=== PATIENT | female | born 1950 | race Caucasian/White ===

== ENCOUNTER 2022-10-05 16:21 | Inpatient (IN) | payer MEDICARE, OTHER, SELFPAY ==
[2022-10-05] VITALS (7 sets, daily range): BP systolic 102–134; BP diastolic 62–76; PULSE 79–140; RESP 14–22; TEMP 36.6–37; O2SAT 94–98; BMI 21.2; BMI 20.7
--- NOTE | 2022-10-05 16:59 | ED.VIS.CHEST ---
HPI History of Present Illness Chief Complaint: Chest Pain Informant: patient and family Narrative Narrative: Patient presents with chest pain that went a little bit down her left arm. She has trouble describing the exact nature of it. It was in the front of the chest. It is there minimally off and on now. She is not short of breath. She has not had this before. She has no history of pulmonary disease or cardiac disease. No recent travel surgery or immobilization. No history of DVT or PE. No primary relative history of heart disease. Patient is on no medications. Her only past medical history is breast cancer that is considered totally cured from the early . She has not no history of heart rhythm abnormalities. She did have COVID back in the summer but had no rhythm issues that she knows of with that. She feels more the chest pain does not so much feel an increased heart rate. She does not know when her heart rate increased. [facility] Medical History HX: breast cancer Hypoglycemia Allergy/AdvReac Type Severity Reaction Status Date / Time acetaminophen Allergy Other Verified 10/05/22 16:31 [From Darvocet-N] propoxyphene Allergy Other Verified 10/05/22 16:31 [From Darvocet-N] codeine AdvReac Nausea Verified 10/05/22 16:31 Surgical History History of mastectomy Hx of total mastectomy of left breast Social History Smoking Status: Former smoker ROS ROS ED Constitutional Constitutional ED: Denies fever(s) or subjective Eyes Eyes: Denies blurry vision ENT ENT ED: Denies rhinorrhea Cardiovascular Cardiovascular: Reports chest pain; Denies palpitations or racing heartbeat Respiratory/Chest Respiratory/Chest: Denies cough or dyspnea Gastrointestinal Gastrointestinal: Denies nausea or vomiting Musculoskeletal Musculoskeletal: Denies back pain or neck pain Integumentary Denies rash Neurologic Neurologic: Denies headache(s) Endocrine Endocrinology: Denies polydipsia or polyuria Hematologic/Lymphatic Hematologic/Lymphatic: Denies lymphadenopathy Allergic/Immunologic Allergic/Immunologic ED: Denies urticaria EXAM Physical Exam Narrative Exam Narrative: Patient awake alert sitting comfortably in bed. She is in no acute distress. She carries on normal conversation. HEENT: Mucous membranes are moist. No sign of trauma. Eyes: No proptosis. No icterus. Neck shows no JVD. Thyroid does not seem enlarged Lungs are clear bilaterally. No pain with a deep breath. Heart is irregular appears to be in flutter or fibrillation. Heart rate varies anywhere from 115-155. Abdomen is soft nontender shows no CVA or suprapubic tenderness Extremities show no edema cords tenderness or asymmetry Neurologic patient awake alert appropriate Skin shows no diaphoresis pallor or rash. Const Vital Signs: 10/05/22 16:25 10/05/22 16:32 10/05/22 17:15 Temperature 98 F Temperature Source Temporal Pulse Rate 140 H Respiratory Rate 20 H Respiratory Effort Normal Non-Labored Blood Pressure 102/72 Blood Pressure Mean 82 Pulse Ox 97 Oxygen Delivery Method Room Air Room Air 10/05/22 18:54 10/05/22 19:03 Temperature Temperature Source Pulse Rate 79 83 Respiratory Rate 14 Respiratory Effort Blood Pressure 115/74 Blood Pressure Mean 87 Pulse Ox 98 Oxygen Delivery Method MDM MDM MDM Narrative Medical decision making narrative: Patient was in fib/flutter when I saw her. When the nurse went in to place the IV and we were going to give diltiazem, the patient had flipped into a normal sinus rhythm in the 80s. Symptoms are resolved. We will continue to work-up and evaluation as the patient did have chest pain with this. Patient has remained in normal sinus rhythm in the mid 80s. She has remained pain-free since her heart rate went down. She is asymptomatic now. Her blood work shows a white count of 3.4. Electrolytes show no marked abnormalities. Glucose is up a bit at 188. Troponin initially was negative and her TSH is normal. I do not have any old labs to compare. I did repeat her troponin because her timing of symptom onset. Her troponin went up to 273. Patient's rechecked. She is still asymptomatic and in normal sinus rhythm. However, she had chest pain radiating down the arm with tachycardic rate and positive troponin. She will be admitted. I discussed the case including the results as above with the hospitalist. My independent interpretation of the patient's single view chest x-ray does show a little small left-sided effusion. Lab Data Attestation: I reviewed the patient's lab results. Labs: Laboratory Results - last 24 hr 10/05/22 10/05/22 10/05/22 17:00 17:00 19:15 WBC 3.4 L RBC 4.26 Hgb 12.7 Hct 40.8 MCV 95.8 MCH 29.8 MCHC 31.1 L RDW Std Deviation 45.8 H RDW Coeff of Madhu 13.0 Plt Count 188 MPV 11.1 Immature Gran % (Auto) 0.300 Neut % (Auto) 56.5 Lymph % (Auto) 30.2 Mcdonald % (Auto) 11.2 H Eos % (Auto) 0.6 Baso % (Auto) 1.2 H Absolute Neuts (auto) 1.9 L Absolute Lymphs (auto) 1.02 Nucleated RBC % 0 Sodium 142 Potassium 3.8 Chloride 107 Carbon Dioxide 26.0 Anion Gap 9 BUN 19 H Creatinine 0.96 Estim Creat Clear Calc 38.05 Est GFR (MDRD) Af Amer 73 Est GFR (MDRD) Non-Af 61 BUN/Creatinine Ratio 19.8 Glucose 188 H Calcium 8.9 Magnesium 1.9 Troponin I High Sens 15 273 H* TSH 1.89 Radiography Diagnostic Testing: Clinical Impression(s) from Imaging Studies Chest X-Ray 10/05/22 17:22 IMPRESSION: Mild left pleural effusion with atelectasis. A focal left basilar infiltrate cannot be excluded. Electronically Signed: Danie Urrutia DO at 17:59 EST Reading Location ID and State: [facility] / [place] Tel [phone], Service support , EKG Initial EKG: Comments: My independent interpretation of EKG for tachycardia shows tachycardic rate at 130 with what appears to be flutter with variable block in the background. This could be atrial fibrillation also. No acute ST elevation or depression. QRS duration is normal. QTc is long but it is difficult to assess due to its pattern. Discharge Plan Triage Chief Complaint: Chest Pain Other Complaint: Palpitations ED Provider: Lucas Tolbert Dx/Rx/DC Orders Clinical Impression: Non-ST elevation [place] (NSTEMI), Atrial fibrillation with RVR, Hyperglycemia Primary Care Provider: Emiliano Ureña Referrals: Emiliano Ureña MD [Primary Care Provider] - Disposition Disposition: Acute Care [facility]
[2022-10-05] MEDS: Aspirin 81 MG TAB.CHEW 324 MG PO (17:05)
[2022-10-05] MEDS: 0.9% Normal Saline 1,000 ML 1000 ML IV (17:06)
[2022-10-05 17:11] LABS: Absolute Lymphocyte Count 1.02 X10^3/uL (0.83-4.51); Absolute Neutrophil Count 1.9 X10^3/uL (2.0-7.7); Basophil# 0.04 X10^3/uL; Basophil% 1.2 % (0-1); Eosinophil# 0.02 X10^3/uL; Eosinophils% 0.6 % (0-5); Hematocrit 40.8 % (37-47); Hemoglobin 12.7 g/dL (12.0-15.0); Lymphocyte # 1.02 X10^3/ul (0.83-4.51); Lymphocyte % 30.2 % (19-41); Mean Corp Hgb Conc 31.1 g/dL (32-36); Mean Corpuscular Hgb 29.8 pg (27.0-32.0); Mean Corpuscular Volume 95.8 fL (81-99); Mean Platelet Vol. 11.1 fl (6.2-12.0); Monocyte# 0.38 X10^3/uL; Monocyte% 11.2 % (0-10); NRBC Flagged by Analyzer 0 % (0-5); Neutrophil # 1.91 X10^3/uL (2.7-7.7); Neutrophil % 56.5 % (47-70); Platelet Count 188 K/mm3 (150-450); RBC Distribution Width SD 45.8 fl (35.1-43.9); Red Blood Count 4.26 M/mm3 (4.2-5.4); White Blood Count 3.4 K/mm3 (4.4-11.0)
--- NOTE | 2022-10-05 17:22 | RAD_ITS ---
INDICATION: chest pain EXAMINATION/TECHNIQUE: X-RAY - XR Chest 1 View COMPARISON: None. FINDINGS: LINES/DEVICES: None. LUNGS: Mild left pleural effusion with atelectasis. A focal left basilar infiltrate cannot be excluded. No pneumothorax. MEDIASTINUM AND CARDIOVASCULAR STRUCTURES: Cardiac silhouette not enlarged. Central airways and mediastinal contour are unremarkable. BONES AND SOFT TISSUES: Degenerative vertebral changes and scoliosis. RAD/Chest 1 View (Portable) IMPRESSION: Mild left pleural effusion with atelectasis. A focal left basilar infiltrate cannot be excluded. Electronically Signed: Danie Urrutia DO at 17:59 EST ,
[2022-10-05 17:35] LABS: Anion Gap 9 (5-15); BUN 19 mg/dL (7-18); BUN/Creat Ratio 19.8 RATIO (10-20); Calcium,Total 8.9 mg/dL (8.5-10.1); Chloride 107 mmol/L (98-107); Creatinine, Serum 0.96 mg/dL (0.55-1.02); EST Glomerular Filtration Rate 61 mL/min (>60); Est Glom Filt Rate - Afr Amer 73 mL/min (>60); Estimated Creatinine Clearance 38.05 ml/min; Glucose 188 mg/dL (74-106); Magnesium 1.9 mg/dL (1.6-2.6); Potassium 3.8 mmol/L (3.5-5.1); Sodium Level 142 mmol/L (136-145); Thyroid Stim Hormone (TSH) 1.89 uIU/mL (0.358-3.74); Troponin-I HS (w/2H Reflex) 15 pg/mL (3.0-54.0)
[2022-10-05 19:07] LABS: Reflex Troponin-HS? (from REC) Y
[2022-10-05 19:42] LABS: Troponin-I HS 273 pg/mL (3.0-54.0)
--- NOTE | 2022-10-05 20:57 | PCM.HP.STD ---
HPI - General General Date of Admission: 10/05/22 Date of Service: 10/05/22 Chief Complaint: Chest pain HPI Narrative RACHEAL GONZALEZ, is a 72-year-old female with remote history of breast cancer in the who presented to [facility] 08/04 with chest pain that started suddenly at 320 this afternoon and was left-sided and went down her arm and was present until 1 hour ago. In the ED she was found to be in A-fib with RVR with highest heart rate of 157 which was confirmed by EKG there were no marked ST changes. She had been cold and she felt getting warm help the chest pain slightly but it did not start to kalin until heart converted spontaneously to normal sinus rhythm, she had diltiazem ordered but this was never given as she converted spontaneously. Given the chest pain and the RVR hospitalist consulted for admission, initial troponin was 15 and went up to 273, presently asymptomatic. Patient evaluated in ED and presently denies chest pain or shortness of breath, no palpitations that she had noted and no swelling. Has felt some slight chest congestion and notes she had visited her father in the [place] and he was also congested. Denied other complaints at this time. PENDING SALE TO [facility] Medical History HX: breast cancer Hypoglycemia Allergy/AdvReac Type Severity Reaction Status Date / Time acetaminophen Allergy Other Verified 10/05/22 16:31 [From Darvocet-N] propoxyphene Allergy Other Verified 10/05/22 16:31 [From Darvocet-N] codeine AdvReac Nausea Verified 10/05/22 16:31 Surgical History History of mastectomy Hx of total mastectomy of left breast Social History Smoking Status: Former smoker ROS ROS Narrative General: Denies fever or chills, denies weight change HENT: Denies headache, denies stuffy nose, denies sore throat EYES: Denies changes in vision Resp: Denies cough, denies shortness of breath, does feel she has some slight chest congestion Cardiac: Denies chest pain at this time but did have some left-sided pain that radiated to her left arm GI: Denies abdominal pain, denies changes in bowel, denies nausea, denies vomiting : Denies changes in urination Extremity: Denies swelling MSK: Denies weakness Neuro: Denies any numbness, denies tingling Heme: Denies any bleeding or bruising Skin: Denies rashes Psychiatric: No complaints voiced Vital Signs Vital Signs Vital Signs: 10/05/22 16:25 10/05/22 16:32 10/05/22 17:15 Temperature 98 F Temperature Source Temporal Pulse Rate 140 H Respiratory Rate 20 H Respiratory Effort Normal Non-Labored Blood Pressure 102/72 Blood Pressure Mean 82 Pulse Ox 97 Oxygen Delivery Method Room Air Room Air 10/05/22 18:54 10/05/22 19:03 Temperature Temperature Source Pulse Rate 79 83 Respiratory Rate 14 Respiratory Effort Blood Pressure 115/74 Blood Pressure Mean 87 Pulse Ox 98 Oxygen Delivery Method Weight Weight: 49.2 kg Body Mass Index (BMI) 21.2 Physical Exam Narrative General: Alert, oriented, no apparent distress HEENT: Atraumatic, normocephalic Eyes: Anicteric, normal conjunctiva, extraocular movements grossly intact Neck: Supple Respiratory: Clear to auscultation bilaterally, normal respiratory effort Cardiovascular: Regular rate and rhythm GI: Soft, nontender, nondistended Extremities: No edema Musculoskeletal: Moving all extremities Neuro: No overt focal neurological deficits Skin: No rashes appreciated Psych: Cooperative Results Lab / Micro Data Result Diagrams: 10/05/22 17:00 10/05/22 17:00 Labs: Laboratory Results - last 24 hr 10/05/22 17:00: WBC 3.4 L, RBC 4.26, Hgb 12.7, Hct 40.8, MCV 95.8, MCH 29.8, MCHC 31.1 L, RDW Std Deviation 45.8 H, RDW Coeff of Madhu 13.0, Plt Count 188, MPV 11.1, Immature Gran % (Auto) 0.300, Neut % (Auto) 56.5, Lymph % (Auto) 30.2, Thayer % (Auto) 11.2 H, Eos % (Auto) 0.6, Baso % (Auto) 1.2 H, Absolute Neuts (auto) 1.9 L, Absolute Lymphs (auto) 1.02, Nucleated RBC % 0 10/05/22 17:00: Sodium 142, Potassium 3.8, Chloride 107, Carbon Dioxide 26.0, Anion Gap 9, BUN 19 H, Creatinine 0.96, Estim Creat Clear Calc 38.05, Est GFR (MDRD) Af Amer 73, Est GFR (MDRD) Non-Af 61, BUN/Creatinine Ratio 19.8, Glucose 188 H, Calcium 8.9, Magnesium 1.9, Troponin I High Sens 15, TSH 1.89 10/05/22 19:15: Troponin I High Sens 273 H* Radiology Impression Chest X-Ray 10/05/22 17:22 IMPRESSION: Mild left pleural effusion with atelectasis. A focal left basilar infiltrate cannot be excluded. Electronically Signed: Danie Urrutia, DO at 17:59 EST Reading Location ID and State: [facility] / [place] Tel [phone], Service support , Assessment & Plan Assessment/Plan (1) Atrial fibrillation with RVR: (2) Non-ST elevation [place] (NSTEMI): PLAN: Plan #New onset atrial fibrillation with RVR Confirmed on ekg, unclear etiology Has minimal past medical history RVR resolved spontaneously and did not require medication We will obtain echocardiogram TSH within normal limits Given gentle hydration We will obtain COVID given congestion and A-fib [id number] of 2, will start Lovenox and if no further chest pain, troponins stabilize and no need for intervention can transition to oral Low dose beta-tee started We will reorder EKG now that heart rate is in 80s to assess for any other abnormalities #NSTEMI Likely type II Troponin initially 15 and went up to 273, suspect this was type II EKG on arrival demonstrated A-fib with RVR without marked ST changes Has no further chest pain and RVR has resolved Was loaded with aspirin Will obtain a.m. lipid panel and continue aspirin and will start statin Repeat EKG now that RVR resolved Has been given Lovenox per #1, low suspicion for type I event but if further chest pain or symptoms may need further inpatient evaluation, if stable overnight can likely have further work-up as an outpatient Echo ordered #Atypical chest pain- resolved Did have some left-sided chest pain that radiated to her arm that seem to coincide with the A-fib with RVR On chest x-ray does have a effusion on that side but we have no comparison COVID and flu ordered, chest x-ray queried infiltrate but she has no shortness of breath, cough, lab abnormalities suggestive of underlying pneumonia at this time and will not start empiric antibiotics Echo ordered We will obtain a.m. x-ray as well #DVT ppx: Full dose Lovenox as above and SCDs Chuyita Guaman MD Time spent in the patient's overall evaluation,decision-making process, review of diagnostic data, adjustment of management, discussion with other providers, nursing nursing and ancillary staff involved in patient's care documentation, 55 minutes Charges/Coding Visit Charges Inpatient E&M: 74210 Init Hosp L2
--- NOTE | 2022-10-05 21:34 | ED.RN ---
Pt rhythm converted spontaneously, no need for Cardizem bolus. MD aware.
--- NOTE | 2022-10-05 22:14 | ECHOD_ITS ---
Reason For Study: Afib/Flutter Procedure This was a 2D Doppler, Color Flow transthoracic echocardiogram. The study was technically difficult. Exam performed portable in patient room. Left Ventricle Normal size and thickness. The left ventricular ejection fraction is 45 %. Severe inferior and posterior hypokinesis. Right Ventricle Normal right ventricle. Atria The left atrium is mildly enlarged. Normal right atrium. Mitral Valve Mild (1+) mitral valve insufficiency. Tricuspid Valve Mild tricuspid valve insufficiency. Normal pulmonary artery pressure. Aortic Valve The aortic valve is not well visualized in the short axis view. There is no aortic stenosis. No aortic valve insufficiency. Pulmonic Valve The pulmonic valve is not well visualized. Trivial pulmonic valve insufficiency. Great Vessels Normal sized aortic root. Pericardium/Pleural No pericardial effusion. Large left pleural effusion. MMode/2D Measurements & Calculations LVIDd: 4.8 cm IVSd: 0.69 cm LA dimension: 3.5 cm LVIDs: 3.5 cm LVPWd: 0.71 cm RVDd: 2.7 cm FS: 26.5 % LAV(MOD-bp): 38.0 ml LA A4 area: 15.5 cm2 RA A4 area: 9.6 cm2 LAV(MOD-bp) Indexed: 26.7 ml/m2 LAV(MOD-sp2): 36.4 ml LAV(MOD-sp4): 38.9 ml Time Measurements MV dec time: 0.13 sec Doppler Measurements & Calculations MV E max jimmie: 84.8 cm/sec Lat Peak E' Jimmie: 9.3 cm/sec Med Peak E' Jimmie: 6.2 cm/sec MV A max jimmie: 58.0 cm/sec E/E' lat: 9.1 E/E' med: 13.7 MV E/A: 1.5 MV V2 max: 108.1 cm/sec MV P1/2t max jimmie: 108.1 cm/sec Ao V2 max: 136.4 cm/sec MV max P.7 mmHg MV P1/2t: 50.0 msec Ao max P.5 mmHg MV V2 mean: 60.8 cm/sec MV dec slope: 633.3 cm/sec2 MV mean P.7 mmHg MVA(P1/2t): 4.4 cm2 MV V2 VTI: 21.7 cm LV V1 max: 80.9 cm/sec MR max jimmie: 469.3 cm/sec PA V2 max: 84.9 cm/sec LV V1 max P.6 mmHg MR max P.1 mmHg LV V1 mean P.5 mmHg MR mean jimmie: 359.6 cm/sec LV V1 mean: 58.2 cm/sec MR mean P.1 mmHg LV V1 VTI: 16.3 cm MR VTI: 154.8 cm TR max jimmie: 245.5 cm/sec TR max P.1 mmHg ECHO/Echo Complete Interpretation Summary The left ventricular ejection fraction is 45 %. Severe inferior and posterior hypokinesis. The left atrium is mildly enlarged. Mild (1+) mitral valve insufficiency. Mild tricuspid valve insufficiency. Large left pleural effusion. Ordering Physician: Chuytia Guaman Performed By: Quintin Price RCS
[2022-10-05] MEDS: Enoxaparin 60 MG/0.6 ML Syringe 50 MG SC (23:03)
[2022-10-05] MEDS: MELATONIN 3 MG TABLET PO (23:04)
[2022-10-05] MEDS: Atorvastatin Calcium 40 MG Tablet PO (23:04)
[2022-10-05] MEDS: Metoprolol Tartrate 25 MG Tablet 12.5 MG PO (23:04)
[2022-10-05 23:39] LABS: Troponin-I HS 5666 pg/mL (3.0-54.0)
[2022-10-06] VITALS (25 sets, daily range): BP systolic 87–134; BP diastolic 53–90; PULSE 74–144; RESP 18–28; TEMP 36.6–36.8; O2SAT 78–100
[2022-10-06] MEDS: Benzonatate 100 MG Capsule PO (01:06)
[2022-10-06 02:24] LABS: Absolute Lymphocyte Count 1.27 X10^3/uL (0.83-4.51); Absolute Neutrophil Count 2.6 X10^3/uL (2.0-7.7); Basophil# 0.04 X10^3/uL; Basophil% 0.9 % (0-1); Eosinophil# 0.03 X10^3/uL; Eosinophils% 0.7 % (0-5); Hematocrit 40.2 % (37-47); Hemoglobin 12.8 g/dL (12.0-15.0); Lymphocyte # 1.27 X10^3/ul (0.83-4.51); Lymphocyte % 28.9 % (19-41); Mean Corp Hgb Conc 31.8 g/dL (32-36); Mean Corpuscular Hgb 30.3 pg (27.0-32.0); Mean Platelet Vol. 11.1 fl (6.2-12.0); Monocyte% 9.1 % (0-10); NRBC Flagged by Analyzer 0 % (0-5); Neutrophil # 2.63 X10^3/uL (2.7-7.7); Neutrophil % 59.9 % (47-70); Platelet Count 185 K/mm3 (150-450); RBC Distribution Width CV 13.1 % (11.6-14.6); RBC Distribution Width SD 45.1 fl (35.1-43.9); Red Blood Count 4.23 M/mm3 (4.2-5.4); White Blood Count 4.4 K/mm3 (4.4-11.0)
[2022-10-06 02:43] LABS: ALB/GLOB Ratio 1.1 RATIO (0.9-2.4); AST(SGOT) 46 U/L (15-37); Alanine Aminotransfer ALT/SGPT 26 U/L (13-56); Albumin, Serum 3.1 g/dL (3.2-5.0); Alkaline Phosphatase 102 U/L (45-117); Anion Gap 9 (5-15); BUN 19 mg/dL (7-18); BUN/Creat Ratio 23.4 RATIO (10-20); Calcium,Total 8.5 mg/dL (8.5-10.1); Chloride 110 mmol/L (98-107); Cholesterol 225 mg/dL (200); Creatinine, Serum 0.81 mg/dL (0.55-1.02); EST Glomerular Filtration Rate 74 mL/min (>60); Est Glom Filt Rate - Afr Amer 89 mL/min (>60); Estimated Creatinine Clearance 45.09 ml/min; Globulin 2.8 g/dL (2.2-4.2); Glucose 99 mg/dL (74-106); High Density Lipoprotein 96 mg/dL; Potassium 3.9 mmol/L (3.5-5.1); Protein, Total 5.9 g/dL (6.4-8.2); Sodium Level 143 mmol/L (136-145); Triglycerides 48 mg/dL; Very Low Density Lipoprotein 10 mg/dL (5-40)
[2022-10-06] MEDS: Ondansetron 4 MG/2 ML Vial IV (03:32)
--- NOTE | 2022-10-06 03:32 | NURSING ---
Pts troponin is 6466 at this time. Pts primary rn aware.
[2022-10-06 03:33] LABS: Troponin-I HS 6466 pg/mL (3.0-54.0)
[2022-10-06] MEDS: 0.9% Saline Lock 10 ML Syringe IV ×4 (03:33→20:53)
--- NOTE | 2022-10-06 04:13 | CT_ITS ---
EXAM: CTA Chest and CTA Abdomen and Pelvis W/ Contrast Injection (and W/O Contrast Images if performed) HISTORY: Hypoxia, abd pain TECHNIQUE: CTA Chest and CTA Abdomen and Pelvis W/ Contrast Injection (and W/O Contrast Images if performed) 3D reconstructions were reviewed. A radiation dose optimization technique was used for this scan. COMPARISON: None. LIMITATIONS: Motion. CHEST: LUNGS: Extensive scattered bilateral groundglass opacities. Bilateral interlobular septal thickening most prominent at the lung bases. Left apical pleural/parenchymal scarring. Partial atelectasis of the left lower lobe with heterogeneous attenuation. PULMONARY VESSELS: Normal. PLEURA: Moderate left and small right pleural effusions. MEDIASTINUM: No coronary artery calcifications. ABDOMEN/PELVIS: LIVER: Normal. GALLBLADDER/BILE DUCTS: Normal. PANCREAS: Normal. SPLEEN: Normal. ADRENAL GLANDS: Normal. KIDNEYS/URETERS/BLADDER: Bilateral renal cortical scarring. No hydroureteronephrosis or radiopaque nephrolithiasis.. RETROPERITONEUM/AORTA: Normal. BOWEL/MESENTERY: No bowel dilatation. Mild to moderate wall thickening in scattered in the transverse and descending colon which is largely decompressed, limiting evaluation. Mild to moderate increased stool in the rectosigmoid colon. APPENDIX: Identified and normal. PERITONEUM: Normal. REPRODUCTIVE ORGANS: Normal. BONES/SOFT TISSUES: No acute abnormality. OTHER: None. CT/CTA Chst, Abd, Pel W and/or WO IMPRESSION: 1. No aortic aneurysm or dissection. 2. Bilateral groundglass opacities and interlobular septal thickening, consistent with pulmonary edema, cannot exclude superimposed infection. Partial atelectasis of the left lower lobe. Following clinical improvement repeat CT chest is recommended to exclude underlying lesion. 3. Moderate left and small right pleural effusions. 4. Mild to moderate wall thickening in the colon, may be due to decompression or colitis. 5. Mild to moderate increased stool in the rectosigmoid colon, correlate for fecal impaction and constipation. Electronically Signed: Juan Bautista MD at 6:03 EST ,
--- NOTE | 2022-10-06 04:18 | NURSING ---
Pt c/o abd pain, 03/30. Pt was curled in bed, moaning and guarding stomach area. Pt was also nauseous and dry heaving. Zofran was given, but ineffective. Pt became hypoxic, 78% on RA. BP was 87/77, HR 79. Pt denies chest pain at this time. OCEAN FISHING GUIDE started at 0407, pt was placed on 6L NC 90%. MD at bedside at 0410. EKG obtained, showed NSR. Pt was given some additional nausea meds. OCEAN FISHING GUIDE ends at 041. Additional orders placed by .
[2022-10-06] MEDS: proCHLORPERazine 10 MG/2 ML Vial 5 MG IV ×2 (04:19→05:45)
--- NOTE | 2022-10-06 04:30 | NURSING ---
Pt went down to CT at this time.
--- NOTE | 2022-10-06 04:35 | PN.HOSP_ITS ---
Hospitalist Note Called for rapid response at 400 due to patient having abdominal pain and distress with O2 sats dropping and soft BP. Presented to bedside and patient reported suprapubic pain that was severe, had received a dose of Zofran around 330 and then had done fair until 4 AM, denied problems with bowel movements and had urinated on arrival to the ED. EKG with no ST elevations, she was placed on nonrebreather but was unable to tolerate the mask and placed back on nasal cannula at 6 L with recovery of SPO2 to the low 90s, continue to report signific ant nausea and having dry heaves that was refractory to Zofran so dose of Compazine given which did help to some extent though she still in significant distress. Given BP fluid bolus ordered and verbal given for labs and for CT chest abdomen pelvis. Full LABOR STANDARDS DIRECTOR note to be included in physical chart. Accompanied patient to CT, still uncomfortable and having nausea though slightly better, is on 8 L of O2 at this time but frequently takes it off and will desat to low 80s. Independent review of CT of the chest shows pleural effusions, also appears to have significant stool burden and distended misshapened bladder, given location of pain as well as her nausea and symptoms suspect that her significant rectal stool burden as well as significant bladder distention are contributing. Palumbo catheter being placed at this time and will await official read and lab results, BP improved and maintaining O2 sats. Do not feel she needs escalated ICU care at this time. Given her respiratory status and effusions rest of bolus was suspended.
--- NOTE | 2022-10-06 04:50 | MDS.RN ---
Pt back from CT, on 8L high flow, 93% 02 sats, BP 134/90 HR 84. Palumbo placed at this time.
[2022-10-06 05:11] LABS: Blood Gas Specimen Type VEN; O2 Delivery Device HFNC; VBG BASE EXCESS -5 mmol/L (-1.0-3.5); VBG Bicarbonate 20 mmol/L (22-26); VBG PO2 64 mmHg (25-40); VBG SO2 93 % (50-70); VBG TCO2 21 mmol/L (23-33); VBG pCO2 30.4 mmHg (41-51); VBG pH 7.42 (7.32-7.42)
[2022-10-06 05:17] LABS: D-Dimer Quantitative (DVT/PE) 1.01 FEU/ug/m (0.27-0.49)
[2022-10-06] MEDS: Bisacodyl 10 MG Suppository RC (05:45)
[2022-10-06] MEDS: Furosemide 20 MG/2 ML VIAL IV (05:45)
[2022-10-06 05:49] LABS: Lactic Acid 1.1 mmol/L (0.4-1.9)
[2022-10-06 05:50] LABS: Troponin-I HS 5549 pg/mL (3.0-54.0)
--- NOTE | 2022-10-06 05:55 | RAD_ITS ---
INDICATION: L pleural effusion EXAMINATION/TECHNIQUE: X-RAY - XR Chest 1 View COMPARISON: 10/05/2022 FINDINGS: LINES/DEVICES: None. LUNGS: Increased perihilar hazy opacities and left basal hazy and patchy opacity. MEDIASTINUM AND CARDIOVASCULAR STRUCTURES: Cardiac silhouette not enlarged. Central airways and mediastinal contour are unremarkable. BONES AND SOFT TISSUES: Bilateral axillary surgical clips, similar compared to the prior. No acute osseous abnormality.. RAD/Chest 1 View (Portable) IMPRESSION: Increased perihilar and left basal opacities, differential includes worsening edema or infection. Electronically Signed: Juan Bautista MD at 7:41 EST ,
--- NOTE | 2022-10-06 06:36 | NURSING ---
Pt asleep, weaned to 5L NC, o2 sats at 99%. Bed alarm on for safety.
--- NOTE | 2022-10-06 07:33 | PN.HOSP_ITS ---
Reason for Visit Reason for Visit: Diagnoses Non-ST elevation (NSTEMI) myocardial infarction (10/05/22) Unspecified atrial fibrillation (10/05/22) Subjective Subjective Follow-up for A-fib RVR converted, non-STEMI, abdominal pain, constipation. 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 Objective Data Objective Data Vital Signs: Vital Signs Temp Pulse Resp BP Pulse Ox O2 Del Method O2 Flow Rate 98.3 F 77 19 H 118/63 99 Nasal Cannula 5 10/06/22 04:07 10/06/22 06:35 10/06/22 06:35 10/06/22 06:35 10/06/22 06:35 10/06/22 06:35 10/06/22 06:35 Oxygen Flow Rate (L/min) 5 Oxygen Delivery Method Nasal Cannula Weight: 106 lb 4.205 oz Body Mass Index (BMI) 20.7 Intake & Output: Intake and Output for Last 24 Hours 10/04/22 10/05/22 10/06/22 23:59 23:59 23:59 Intake Total 1000 / 1000 Output Total 350 / 350 Balance 1000 / 1000 -350 / -350 Lab / Micro Data Result Diagrams: 10/06/22 02:05 10/06/22 02:05 Labs: Laboratory Results - last 24 hr 10/05/22 17:00: WBC 3.4 L, RBC 4.26, Hgb 12.7, Hct 40.8, MCV 95.8, MCH 29.8, MCHC 31.1 L, RDW Std Deviation 45.8 H, RDW Coeff of Madhu 13.0, Plt Count 188, MPV 11.1, Immature Gran % (Auto) 0.300, Neut % (Auto) 56.5, Lymph % (Auto) 30.2, Barbour % (Auto) 11.2 H, Eos % (Auto) 0.6, Baso % (Auto) 1.2 H, Absolute Neuts (auto) 1.9 L, Absolute Lymphs (auto) 1.02, Nucleated RBC % 0 10/05/22 17:00: Sodium 142, Potassium 3.8, Chloride 107, Carbon Dioxide 26.0, Anion Gap 9, BUN 19 H, Creatinine 0.96, Estim Creat Clear Calc 38.05, Est GFR (MDRD) Af Amer 73, Est GFR (MDRD) Non-Af 61, BUN/Creatinine Ratio 19.8, Glucose 188 H, Calcium 8.9, Magnesium 1.9, Troponin I High Sens 15, TSH 1.89 10/05/22 19:15: Troponin I High Sens 273 H* 10/05/22 23:01: Troponin I High Sens 5666 H* 10/06/22 02:05: WBC 4.4, RBC 4.23, Hgb 12.8, Hct 40.2, MCV 95.0, MCH 30.3, MCHC 31.8 L, RDW Std Deviation 45.1 H, RDW Coeff of Madhu 13.1, Plt Count 185, MPV 11.1, Immature Gran % (Auto) 0.500, Neut % (Auto) 59.9, Lymph % (Auto) 28.9, Barbour % (Auto) 9.1, Eos % (Auto) 0.7, Baso % (Auto) 0.9, Absolute Neuts (auto) 2.6, Absolute Lymphs (auto) 1.27, Nucleated RBC % 0 10/06/22 02:05: Sodium 143, Potassium 3.9, Chloride 110 H, Carbon Dioxide 24.0, Anion Gap 9, BUN 19 H, Creatinine 0.81, Estim Creat Clear Calc 45.09, Est GFR (MDRD) Af Amer 89, Est GFR (MDRD) Non-Af 74, BUN/Creatinine Ratio 23.4 H, Glucose 99, Calcium 8.5, Total Bilirubin 0.30, AST 46 H, ALT 26, Alkaline Phosphatase 102, Total Protein 5.9 L, Albumin 3.1 L, Globulin 2.8, Albumin/Globulin Ratio 1.1, Triglycerides 48, Cholesterol 225 H, LDL Cholesterol 119, VLDL Cholesterol 10, HDL Cholesterol 96 10/06/22 02:15: Troponin I High Sens 6466 H* 10/06/22 04:55: Troponin I High Sens 5549 H* 10/06/22 04:55: Lactic Acid 1.1 10/06/22 04:55: D-Dimer Quant (PE/DVT) 1.01 H* Micro: Microbiology 10/05/22 22:50 Nasal Secretion SARS-CoV-2 & FLU Antigen (Rapid) - Final ABG Data ABG results: ABG 10/06/22 05:01 Specimen Type POLINA VBG pH 7.42 VBG pO2 64 H VBG HCO3 20 L VBG Total CO2 21 L VBG O2 Sat (Calc) 93 H VBG Base Excess -5 L POC Mix VBG pCO2 Pt Tmp 30.4 L O2 Delivery Device HFNC Liter Flow 8.0 Radiography Diagnostic Testing: Radiology Impression Chest X-Ray 10/05/22 17:22 IMPRESSION: Mild left pleural effusion with atelectasis. A focal left basilar infiltrate cannot be excluded. Electronically Signed: Danie Urrutia DO at 17:59 EST , Chest/Abdomen/Pelvis CTA 10/06/22 04:13 IMPRESSION: 1. No aortic aneurysm or dissection. 2. Bilateral groundglass opacities and interlobular septal thickening, consistent with pulmonary edema, cannot exclude superimposed infection. Partial atelectasis of the left lower lobe. Following clinical improvement repeat CT chest is recommended to exclude underlying lesion. 3. Moderate left and small right pleural effusions. 4. Mild to moderate wall thickening in the colon, may be due to decompression or colitis. 5. Mild to moderate increased stool in the rectosigmoid colon, correlate for fecal impaction and constipation. Electronically Signed: Juan Bautista MD at 6:03 EST , Physical Exam Narrative Seen and examined. Patient states she has chest pain midsternal/left sternal, sharp in quality with radiation to left arm and interscapular region in the back. She is not a good historian to describe detail characteristics of the pain. She denies prior history of coronary artery disease/MD or other heart disease or heart cath. Found to have new onset A-fib RVR in ED which is converted now. Denies chronic lung disease. She has history of smoking less than a pack for 25 years. Quit in 2001. She had a rapid response in the morning with low blood pressure, transient hypotension, abdominal pain. CT abdomen was done. When I saw her she is in normal baseline no chest pain or abdominal pain. She moves her bowels twice a week but denies straining defecation or blood in the stool. No nausea or vomiting. Physical exam General: Alert, Oriented x3, Cooperative HEENT: Atraumatic, PERRLA, EOMI, Normocephalic Oral: Oral mucosa moist. No Gingival or Mucosal Lesions/ Ulcerations Neck: Supple, No JVD, Negative Carotid Bruits Lungs: Air entry diminished in bilateral lung bases. No crepitation/rhonchi Cardiovascular: Sinus rhythm with PVCs, NSVT 23 beats, normal S1, Normal S2, soft systolic murmur LLSB. Abdomen: Bowel Sounds Present, Soft, Non Tender, Non-Distended : No renal angle tenderness. No suprapubic tenderness. Extremities: Subtle edema, chronic edema, Capillary Refill Less than 3 Seconds Skin: No rashes, No breakdown Musculoskeletal: No Tenderness to Palpation of Joints or Extremities. ROM intact. Neurological: Cranial nerves II-XII grossly intact, DTR 2+/4 and Symmetrical, Neuro grossly intact Psych/Mental Status: Flat affect. Assessment & Plan Assessment/Plan (1) Atrial fibrillation with RVR: (2) Non-ST elevation MD (NSTEMI): PLAN: Plan This is 72-year-old female who came to ED for chest pain with radiation to left arm, cannot describe it well. Denies shortness of breath. She was found to have A-fib with RVR. Had rapid response in the morning. 1. Atypical chest pain, Non-STEMI with new onset A-fib RVR probably precipit ated by non-STEMI, PVCs and NSVT: Twelve-lead EKG shows A-fib RVR with no distinct or marked ST-T changes. troponin very high, progressive increase in 6000. Patient had Cardizem IV bolus. Patient converted to sinus rhythm. Multiple PVCs and NSVT. Patient on baby aspirin, Lovenox 1 mg/kg body weight, metoprolol low-dose. Education Rep consult requested and discussed with Dr. Souza. 2D echo is done. TSH normal. [id number] score 2. 2. 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 Patient pulse ox was in low 90s on 6 L of oxygen. Patient is significant nausea and dry heaving. Patient had CTA chest and abdomen which shows pleural effusion, significant colonic stool with rectal distention and bladder distention. Palumbo catheter was inserted. Patient is back to baseline. Pulse ox 98% on 3 L of oxygen 3. Constipation with rectal distention: Patient takes a stool softener at home Dulcolax oral. Here Dulcolax suppository was given and enema ordered. On senna S and Dulcolax oral. Avoid beta-tee and enema at same time. Discussed with nursing staff. 4. Anxiety and history of breast cancer: Patient states she was depressed while taking care of her dad who is in skilled nursing now. Not on any home medication. 5. History of smoking of less than 25 pack years: Denies history of chronic pricila ng disease or COPD. #DVT ppx: Full dose Lovenox as above and SCDs Total time of the visit including total time spent in counseling or coordination of care, (more than 50% of the total time, spent in obtaining medical information from nurses and other ancillary care providers,explaining to the patient about labs, imaging, diagnosis and management of active complex medical conditions), discussion with equine science instructor, reviewing of days event, review of labs and imaging is 50 minutes. Charges/Coding Visit Charges Inpatient E&M: 38624 [facility] [[email or web address]] Hosp L3
[2022-10-06] MEDS: Aspirin 81 MG TAB.CHEW PO (08:54)
[2022-10-06] MEDS: Enoxaparin 60 MG/0.6 ML Syringe 50 MG SC (08:54)
[2022-10-06 09:50] LABS: Magnesium 1.8 mg/dL (1.6-2.6); Phosphorus 3.6 mg/dL (2.5-4.9)
[2022-10-06] MEDS: Metoprolol Tartrate 25 MG Tablet 12.5 MG PO (09:57)
--- NOTE | 2022-10-06 11:05 | CASEMGMT ---
RN JOSEPH Face to Face with patient for initial transition planning/care coordination assessment. RN CM introduced self and role at [facility]. Patient lying in bed, alert and oriented. Patient willing to participate in assessment and is able to answer all questions appropriately. Care providers, pharmacy, and demographics verified. Patient wishes to discharge home, denies need for home health at this time. Patient states he has no further needs or concerns at this time. CM to follow for discharge planning needs that may arise. PCP: Niranjan Specialists: none Preferred Pharmacy: [facility] Insurance: [employer] other Prescription Benefit: yes Living Will/HPOA: none LNOK: sister Living Arrangements: Patient lives alone in a single story condo with no steps to enter. Patient is independent at home. Transportation: self, sister DME/HHC: Patient denies DME in the home. No previous HHC or SNF. Disposition Plan: Patient to discharge home with family support and follow-up plans place. Zoie DAVIDSON, RN, CM
--- NOTE | 2022-10-06 11:58 | PCM.CONS.C ---
Assessment & Plan Assessment/Plan (1) Non-ST elevation SD (NSTEMI): PLAN: Discussed with patient. Coronary angiography with possible revascularization offered. Risks benefits and alternatives explained. She understands and wishes to proceed. (2) Atrial fibrillation with RVR: PLAN: In the setting of #1 above. Presently normal sinus rhythm. Will likely need anticoagulation after her cardiac catheterization/angiography. (3) Cardiomyopathy: PLAN: For coronary angiography. (4) Pleural effusion: PLAN: As per internal medicine. Consider pulmonology consult. HPI Consult Data Date of Consult: 10/06/22 HPI Narrative HPI Narrative: The patient presented to the emergency room with complaints of anterior chest discomfort radiating down her left arm. In the emergency room, she was noted to be in atrial fibrillation with rapid ventricular response. He subsequently converted to normal sinus rhythm. Troponins were noted to be elevated ruling her in for non-ST elevation myocardial infarction. Presently patient is chest pain-free. Patient denies any previous history of coronary artery disease. Denies any history of atrial fibrillation prior to this episode. No orthopnea. No PND. No ankle edema. [facility] Medical History HX: breast cancer Hypoglycemia Home Medications NK 10/05/22 [History Last Taken Unknown] Allergy/AdvReac Type Severity Reaction Status Date / Time acetaminophen Allergy Other Verified 10/05/22 16:31 [From Darvocet-N] propoxyphene Allergy Other Verified 10/05/22 16:31 [From Darvocet-N] codeine AdvReac Nausea Verified 10/05/22 16:31 Surgical History History of mastectomy Hx of total mastectomy of left breast Social History Smoking Status: Former smoker Risk Stratification Risk Stratification Applicable: No Objective Data Vital Signs: Vital Signs Temp Pulse Resp BP Pulse Ox O2 Del Method O2 Flow Rate 98.1 F 96 20 H 96/65 98 Nasal Cannula 3 10/06/22 08:44 10/06/22 09:57 10/06/22 08:44 10/06/22 09:57 10/06/22 09:50 10/06/22 09:50 10/06/22 09:50 Oxygen Flow Rate (L/min) 3 Oxygen Delivery Method Nasal Cannula Weight: 106 lb 4.205 oz Body Mass Index (BMI) 20.7 Intake & Output: Intake and Output for Last 24 Hours 10/04/22 10/05/22 10/06/22 23:59 23:59 23:59 Intake Total 1000 / 1000 500 / 500 Output Total 350 / 350 Balance 1000 / 1000 150 / 150 Lab / Micro Data Attestation: I reviewed the patient's lab results. Result Diagrams: 10/06/22 02:05 10/06/22 02:05 Labs: Laboratory Results - last 24 hr 10/05/22 17:00: WBC 3.4 L, RBC 4.26, Hgb 12.7, Hct 40.8, MCV 95.8, MCH 29.8, MCHC 31.1 L, RDW Std Deviation 45.8 H, RDW Coeff of Madhu 13.0, Plt Count 188, MPV 11.1, Immature Gran % (Auto) 0.300, Neut % (Auto) 56.5, Lymph % (Auto) 30.2, Citrus % (Auto) 11.2 H, Eos % (Auto) 0.6, Baso % (Auto) 1.2 H, Absolute Neuts (auto) 1.9 L, Absolute Lymphs (auto) 1.02, Nucleated RBC % 0 10/05/22 17:00: Sodium 142, Potassium 3.8, Chloride 107, Carbon Dioxide 26.0, Anion Gap 9, BUN 19 H, Creatinine 0.96, Estim Creat Clear Calc 38.05, Est GFR (MDRD) Af Amer 73, Est GFR (MDRD) Non-Af 61, BUN/Creatinine Ratio 19.8, Glucose 188 H, Calcium 8.9, Magnesium 1.9, Troponin I High Sens 15, TSH 1.89 10/05/22 19:15: Troponin I High Sens 273 H* 10/05/22 23:01: Troponin I High Sens 5666 H* 10/06/22 02:05: WBC 4.4, RBC 4.23, Hgb 12.8, Hct 40.2, MCV 95.0, MCH 30.3, MCHC 31.8 L, RDW Std Deviation 45.1 H, RDW Coeff of Madhu 13.1, Plt Count 185, MPV 11.1, Immature Gran % (Auto) 0.500, Neut % (Auto) 59.9, Lymph % (Auto) 28.9, Citrus % (Auto) 9.1, Eos % (Auto) 0.7, Baso % (Auto) 0.9, Absolute Neuts (auto) 2.6, Absolute Lymphs (auto) 1.27, Nucleated RBC % 0 10/06/22 02:05: Sodium 143, Potassium 3.9, Chloride 110 H, Carbon Dioxide 24.0, Anion Gap 9, BUN 19 H, Creatinine 0.81, Estim Creat Clear Calc 45.09, Est GFR (MDRD) Af Amer 89, Est GFR (MDRD) Non-Af 74, BUN/Creatinine Ratio 23.4 H, Glucose 99, Calcium 8.5, Total Bilirubin 0.30, AST 46 H, ALT 26, Alkaline Phosphatase 102, Total Protein 5.9 L, Albumin 3.1 L, Globulin 2.8, Albumin/Globulin Ratio 1.1, Triglycerides 48, Cholesterol 225 H, LDL Cholesterol 119, VLDL Cholesterol 10, HDL Cholesterol 96 10/06/22 02:15: Troponin I High Sens 6466 H* 10/06/22 04:55: Troponin I High Sens 5549 H* 10/06/22 04:55: Lactic Acid 1.1 10/06/22 04:55: D-Dimer Quant (PE/DVT) 1.01 H* 10/06/22 04:55: Phosphorus 3.6, Magnesium 1.8 Micro: Microbiology 10/05/22 22:50 Nasal Secretion SARS-CoV-2 & FLU Antigen (Rapid) - Final ABG Data ABG results: ABG 10/06/22 05:01 Specimen Type POLINA VBG pH 7.42 VBG pO2 64 H VBG HCO3 20 L VBG Total CO2 21 L VBG O2 Sat (Calc) 93 H VBG Base Excess -5 L POC Mix VBG pCO2 Pt Tmp 30.4 L O2 Delivery Device HFNC Liter Flow 8.0 Rhythm Strip Rhythm Strip: Sinus Rhythm Cardiology Labs/Tests 10/05/22 17:00: WBC 3.4 L, RBC 4.26, Hgb 12.7, Hct 40.8, MCV 95.8, MCH 29.8, MCHC 31.1 L, Plt Count 188, MPV 11.1, Immature Gran % (Auto) 0.300, Neut % (Auto) 56.5, Lymph % (Auto) 30.2, Citrus % (Auto) 11.2 H, Eos % (Auto) 0.6, Baso % (Auto) 1.2 H, Absolute Neuts (auto) 1.9 L, Nucleated RBC % 0 10/05/22 17:00: Sodium 142, Potassium 3.8, Chloride 107, Carbon Dioxide 26.0, Anion Gap 9, BUN 19 H, Creatinine 0.96, Est GFR (MDRD) Af Amer 73, Est GFR (MDRD) Non-Af 61, BUN/Creatinine Ratio 19.8, Glucose 188 H, Calcium 8.9, Magnesium 1.9 10/06/22 02:05: WBC 4.4, RBC 4.23, Hgb 12.8, Hct 40.2, MCV 95.0, MCH 30.3, MCHC 31.8 L, Plt Count 185, MPV 11.1, Immature Gran % (Auto) 0.500, Neut % (Auto) 59.9, Lymph % (Auto) 28.9, Citrus % (Auto) 9.1, Eos % (Auto) 0.7, Baso % (Auto) 0.9, Absolute Neuts (auto) 2.6, Nucleated RBC % 0 10/06/22 02:05: Sodium 143, Potassium 3.9, Chloride 110 H, Carbon Dioxide 24.0, Anion Gap 9, BUN 19 H, Creatinine 0.81, Est GFR (MDRD) Af Amer 89, Est GFR (MDRD) Non-Af 74, BUN/Creatinine Ratio 23.4 H, Glucose 99, Calcium 8.5, Total Bilirubin 0.30, Triglycerides 48, Cholesterol 225 H, LDL Cholesterol 119, VLDL Cholesterol 10, HDL Cholesterol 96 10/06/22 04:55: Lactic Acid 1.1 10/06/22 04:55: D-Dimer Quant (PE/DVT) 1.01 H* 10/06/22 04:55: Phosphorus 3.6, Magnesium 1.8 10/06/22 05:01: VBG pH 7.42, VBG pO2 64 H, VBG HCO3 20 L, VBG O2 Sat (Calc) 93 H, VBG Base Excess -5 L Rhythm: EKG: EKG in the emergency room showed atrial fibrillation with rapid ventricular response. Second EKG showed normal sinus rhythm with PACs. ECHO: EF 45% with inferior and posterior hypokinesis. Stress Test: Cardiac Cath: PCI: CT Surgery: Holter monitor: EPS: PPM: CXR: Chest CT Scan: Radiography Diagnostic Testing: Radiology Impression Chest X-Ray 10/05/22 17:22 IMPRESSION: Mild left pleural effusion with atelectasis. A focal left basilar infiltrate cannot be excluded. Electronically Signed: Danie Urrutia DO at 17:59 EST , Chest/Abdomen/Pelvis CTA 10/06/22 04:13 IMPRESSION: 1. No aortic aneurysm or dissection. 2. Bilateral groundglass opacities and interlobular septal thickening, consistent with pulmonary edema, cannot exclude superimposed infection. Partial atelectasis of the left lower lobe. Following clinical improvement repeat CT chest is recommended to exclude underlying lesion. 3. Moderate left and small right pleural effusions. 4. Mild to moderate wall thickening in the colon, may be due to decompression or colitis. 5. Mild to moderate increased stool in the rectosigmoid colon, correlate for fecal impaction and constipation. Electronically Signed: Juan Bautista MD at 6:03 EST , Chest X-Ray 10/06/22 05:55 IMPRESSION: Increased perihilar and left basal opacities, differential includes worsening edema or infection. Electronically Signed: Juan Bautista MD at 7:41 EST ,
--- NOTE | 2022-10-06 15:13 | CL.D_ITS ---
Patient Name: RACHEAL GONZALEZ Study Date: 10/06/2022 Performing: Betsy Souza MD Ht: 60 inches 152.4 cm : 1950 Wt: 106.26 lbs 48.2 kg Age: 72 Gender: female BSA: 1.43 PROCEDURE(S) PERFORMED [id number])LHC/COR/LV CLINICAL PROFILE AND INDICATIONS Indications: ACS <= 24 hrs Heart Failure: None Angina Classification Anginal Classification w/in 2 Weeks: CCS IV CAD Presentations: Non-STEMI. Symptom onset Date/Time: Time Not Available CONCLUSIONS Mild RCA disease Non-ischemic CMP, likely Takotsubo's RECOMMENDATIONS Medical therapy Risk factor modification DESCRIPTION OF PROCEDURE The patient arrived to the procedure lab. The risks and benefits of the procedure as well as a full description of our services here and current unavailability of surgical backup were fully explained to the patient and/or their significant other prior to the catheterization. The Timeout was completed, verifying the correct patient and procedure. The patient's procedural site was prepped and draped in the usual fashion. Local anesthetic was given subcutaneously to right radial region with Lidocaine 2%. Using a modified Seldinger technique, arterial access was obtained via the right radial artery, a 6Fr sheath was inserted. Left Coronary Artery selective angiography was performed in multiple views using a 5 Fr. 4.0 [place]lington catheter. Right Coronary Artery selective angiography was then performed in multiple views using a 5 Fr. 4.0 [place]lington catheter. Left Ventriculography was performed in ORTIZ projection using a 5 Fr. Pigtail catheter.The arterial sheath was pulled and a TR Band was applied for hemostasis CORONARY ANGIOGRAPHY DOMINANCE: Right Dominant LEFT HEART ASSESSMENT Left Ventricular Ejection Fraction: by LV Gram 40 % LVEDP: 20 mmHg LEFT MAIN: Angiographically normal LEFT ANTERIOR DESCENDING ARTERY: Angiographically normal CIRCUMFLEX ARTERY: Angiographically normal RIGHT CORONARY ARTERY: RCA: Luminal Irregularities 20% Mid lesion in RCA Tubular 30% Proximal lesion in RCA COMPLICATIONS No Complications PROCEDURE MEDICATIONS Versed 1 mg IV Fentanyl 25 mcg IV Oxygen: 2 L/min via nasal cannula Heparin given IA 10/06/2022 14:44:02 Verapamil 2.5mg, Ntg 200mcgs, 2000 units of Heparin given IA 10/06/2022 14:44:02 SUMMARY OF HEMODYNAMIC DATA Time AIR REST ECG 14:27:44 AO 92/58 (69) SA 14:47:35 LV 98/10, 20 14:52:54 LV 101/9, 20 14:53:03 LV 91/10, 19 14:54:47 15:12:36 Signed By Betsy Souza MD On 10/06/2022 15:13:10 Betsy Souza MD
--- NOTE | 2022-10-06 16:19 | CT_ITS ---
STUDY: CT BRAIN WITHOUT CONTRAST REASON FOR EXAM: Female, 72 years old. R/O cva RADIATION DOSAGE (If Supplied By Facility): CTDIvol = ( 44.99 ) mGy, DLP = ( 779.24 ) mGycm TECHNIQUE: Transaxial CT imaging of the brain was performed without administration of intravenous contrast material. Individualized dose optimization techniques were used for this CT. COMPARISON: No relevant priors. FINDINGS: Normal soft tissue structures. Normal calvarium. Normal size ventricles and extra-axial spaces for the patient''s age. Normal white matter tracts of the cerebral hemispheres. Normal basal ganglia and thalami. Normal brainstem. Normal cerebellum. Partial empty sella deformity likely of no significance There is no intracranial hemorrhage. There are no findings of an acute ischemic infarction. Normal visualized paranasal sinuses. There is residual IV contrast noted within the vascular system from prior study and no abnormal enhancement is demonstrated CT/Brain/Head without Contrast IMPRESSION: Partial empty sella deformity. No acute bleed.. If concern for acute infarct MRI recommended Electronically Signed: Derrick Rendon MD at 17:09 EST ,
[2022-10-06] MEDS: Metoprolol Tartrate 25 MG Tablet PO (16:27)
[2022-10-06] MEDS: Metoprolol Tartrate 5 MG/5 ML Vial IV (20:52)
[2022-10-06] MEDS: Atorvastatin Calcium 40 MG Tablet PO (20:59)
[2022-10-06] MEDS: APIXABAN 2.5 MG TABLET (WCH) PO (21:37)
[2022-10-07] VITALS (21 sets, daily range): BP systolic 74–96; BP diastolic 47–78; PULSE 69–149; RESP 15–28; TEMP 36.5–36.7; O2SAT 90–98
--- NOTE | 2022-10-07 01:17 | RAD_ITS ---
INDICATION: A flutter EXAMINATION/TECHNIQUE: X-RAY - XR Chest 1 View COMPARISON: 10/06/2022 FINDINGS: LINES/DEVICES: None. LUNGS: Patchy groundglass opacities in both lungs more prominent in the right upper lobe and left lower lobe suggesting bilateral pneumonia. There is small right pleural effusion. There is moderate size left pleural effusion with compressive atelectasis in the left lung base. MEDIASTINUM AND CARDIOVASCULAR STRUCTURES: Cardiac silhouette not enlarged. Central airways and mediastinal contour are unremarkable. BONES AND SOFT TISSUES: Unremarkable. RAD/Chest 1 View (Portable) IMPRESSION: Bilateral pneumonia is not significantly changed since the study from 10/06/2022. Stable right pleural effusion. Left pleural effusion has increased since the previous study. Electronically Signed: Virginia Sandoval MD at 2:27 EST ,
[2022-10-07] MEDS: 0.9% Saline Lock 10 ML Syringe IV ×2 (04:13→16:46)
[2022-10-07] MEDS: Amiodarone 200 MG Tablet 400 MG PO (08:27)
[2022-10-07] MEDS: Potassium Chloride Oral Tablet 10 MEQ PO (08:28)
[2022-10-07] MEDS: Bisacodyl 5 MG Tablet PO (10:55)
[2022-10-07] MEDS: Furosemide 20 MG Tablet PO (10:56)
[2022-10-07] MEDS: Lisinopril 2.5 MG Tablet PO (10:56)
[2022-10-07] MEDS: APIXABAN 2.5 MG TABLET (WCH) PO ×2 (10:56→22:36)
[2022-10-07] MEDS: Senna/Docusate Sodium 1 Tablet 2 TABLET PO (10:56)
[2022-10-07] MEDS: Metoprolol Tartrate 25 MG Tablet PO ×2 (10:57→22:37)
--- NOTE | 2022-10-07 12:24 | PN.HOSP_ITS ---
Reason for Visit Reason for Visit: Diagnoses Non-ST elevation (NSTEMI) myocardial infarction (10/06/22) Cardiomyopathy, unspecified (10/06/22) Unspecified atrial fibrillation (10/06/22) Pleural effusion, not elsewhere classified (10/06/22) Subjective Subjective Follow-up for A-fib/a flutter with RVR. Patient not symptomatic with shortness of breath chest pain dizziness lightheadedness. Does not feel flutter waves. Objective Data Objective Data Vital Signs: Vital Signs Temp Pulse Resp BP Pulse Ox O2 Del Method O2 Flow Rate 98.1 F 110 H 22 H 95/61 90 Room Air 2 10/07/22 11:10 10/07/22 11:10 10/07/22 11:10 10/07/22 11:10 10/07/22 11:10 10/07/22 11:10 10/07/22 08:05 Oxygen Flow Rate (L/min) 2 Oxygen Delivery Method Room Air Weight: 108 lb 11.006 oz Body Mass Index (BMI) 20.7 Intake & Output: Intake and Output for Last 24 Hours 10/05/22 10/06/22 10/07/22 23:59 23:59 23:59 Intake Total 1000 / 1000 1220 / 1340 343 / 343 Output Total 1950 / 1950 Balance 1000 / 1000 -730 / -610 343 / 343 Lab / Micro Data Result Diagrams: 10/06/22 02:05 10/06/22 02:05 Micro: Microbiology 10/05/22 22:50 Nasal Secretion SARS-CoV-2 & FLU Antigen (Rapid) - Final Radiography Diagnostic Testing: Radiology Impression Brain CT 10/06/22 16:19 IMPRESSION: Partial empty sella deformity. No acute bleed.. If concern for acute infarct MRI recommended Electronically Signed: Derrick Rendon MD at 17:09 EST , Chest X-Ray 10/07/22 01:17 IMPRESSION: Bilateral pneumonia is not significantly changed since the study from 10/06/2022. Stable right pleural effusion. Left pleural effusion has increased since the previous study. Electronically Signed: Virginia Sandoval MD at 2:27 EST , Rhythm Strip Rhythm Strip: Sinus Rhythm Physical Exam Narrative Seen and examined. Admitted with A-fib with RVR was converted yesterday. After cardiac cath, yesterday evening she was back in A-fib RVR which changed to atrial flutter with RVR with variable conduction last night. She was started on amiodarone. Heart rate varies between 100-1 40 per blood. Chronically she has low blood pressure is systolic in 90s. Denies chronic lung disease. She has history of smoking less than a pack for 25 years. Quit in 2001. Physical exam General: Alert, Oriented x3, Cooperative HEENT: Atraumatic, PERRLA, EOMI, Normocephalic Oral: Oral mucosa moist. No Gingival or Mucosal Lesions/ Ulcerations Neck: Supple, No JVD, Negative Carotid Bruits Lungs: Air entry diminished in bilateral lung bases. No crepitation/rhonchi Cardiovascular: Atrial flutter with RVR. normal S1, Normal S2, soft systolic murmur LLSB. Abdomen: Bowel Sounds Present, Soft, Non Tender, Non-Distended : No renal angle tenderness. No suprapubic tenderness. Extremities: Subtle chronic edema, Capillary Refill Less than 3 Seconds Skin: No rashes, No breakdown Musculoskeletal: No Tenderness to Palpation of Joints or Extremities. ROM intact. Neurological: Cranial nerves II-XII grossly intact, DTR 2+/4 and Symmetrical, Neuro grossly intact Psych/Mental Status: Flat affect. Assessment & Plan Assessment/Plan (1) Atrial fibrillation with RVR: (2) Non-ST elevation [place] (NSTEMI): PLAN: Plan This is 72-year-old female who came to ED for chest pain with radiation to left arm, cannot describe it well. Denies shortness of breath. She was found to have A-fib with RVR. Had rapid response in the morning. 1. 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 troponin very high, progressive increase in 6000. Patient had Cardizem IV bolus. Patient converted to sinus rhythm. Multiple PVCs and NSVT. Patient on baby aspirin, Lovenox 1 mg/kg body weight, metoprolol low-dose. Hvac Design Mechanical Engineer consult requested and discussed with Dr. Souza. 2D echo is done. TSH normal. [id number] score 2. 10/07: Discussed with the community association manager. On Lasix 20 mg daily. 2D echo shows EF 45%, severe inferior posterior hypokinesis LA mildly enlarged mild MR and TR and left pleural effusion. Overall it is suggestive of chronic combined HFpEF and HFrEF. BNP is ordered. Patient is started on amiodarone 400 mg now and 200 mg from tomorrow a.m. Bilateral pleural effusion left more than right with abnormal chest CT finding:C T chest showed bilateral groundglass opacity and interlobular septal thickening consistent with pulmonary edema. Bilateral pleural effusion, moderate left more than right.Repeat chest x-ray today shows a stable right pleural effusion but mildly increased left pleural effusion. Patient does not have symptoms of cough purulent sputum production or hypoxia to justify clinical pneumonia. Discussed with interventional radiologist. He will thoracocentesis on Monday with holding Eliquis on Monday evening. Differential is heart failure or malignant effusion from breast cancer although breast cancer is in remission. Aircraft Electrical Systems Specialist consulted. 2. Abdominal pain, rapid response due to transient hypotension exact etiology unclear possible due to acute bladder retention/ rectal distention and vagal response:awning erector she felt anxiety attack, suprapubic abdominal pain with distress with drop in blood pressure, SBP 87/77 , Heart rate in 70sand oxygen saturation. Patient pulse ox was in low 90s on 6 L of oxygen. Patient is significant nausea and dry heaving. Patient had CTA chest and abdomen which shows pleural effusion, significant colonic stool with rectal distention and bladder distention. Palumbo catheter was inserted. Patient is back to baseline. Pulse ox 98% on 3 L of oxygen 10/07: Abdominal pain has resolved. 3. Constipation with rectal distention: Patient takes a stool softener at home Dulcolax oral. Here Dulcolax suppository was given and enema ordered. On senna S and Dulcolax oral. Avoid beta-tee and enema at same time. Discussed with nursing staff. 4. Anxiety and history of breast cancer: Patient states she was depressed while taking care of her dad who is in correction now. Not on any home medication. She has bilateral pleural effusion left more than right. 10/07: As mentioned above 5. History of smoking of less than 25 pack years: Denies history of chronic lung disease or COPD. #DVT ppx: Full dose Lovenox as above and SCDs Total time of the visit including total time spent in counseling or coordination of care, (more than 50% of the total time, spent in obtaining medical information from nurses and other ancillary care providers,explaining to the patient about labs, imaging, diagnosis and management of active complex medical conditions), discussion with community association manager, reviewing of days event, review of labs and imaging is 50 minutes. Charges/Coding Visit Charges Inpatient E&M: 40907 Subs Hosp L3
[2022-10-07 12:54] LABS: BNP,B-Type NATRIURETIC PEPTIDE 145.7 pg/mL (0-100)
--- NOTE | 2022-10-07 13:46 | PCM.PN.CARD ---
Subjective Subjective Denies any complaints today. Converted back overnight into atrial fibrillation. Started on amiodarone. Patient herself asymptomatic. Objective Data Vital Signs: Vital Signs Temp Pulse Resp BP Pulse Ox O2 Del Method O2 Flow Rate 98.1 F 110 H 22 H 95/61 90 Room Air 2 10/07/22 11:10 10/07/22 11:10 10/07/22 11:10 10/07/22 11:10 10/07/22 11:10 10/07/22 11:10 10/07/22 08:05 Oxygen Flow Rate (L/min) 2 Oxygen Delivery Method Room Air Weight: 108 lb 11.006 oz Body Mass Index (BMI) 20.7 Intake & Output: Intake and Output for Last 24 Hours 10/05/22 10/06/22 10/07/22 23:59 23:59 23:59 Intake Total 1000 / 1000 1220 / 1340 343 / 343 Output Total 1950 / 1950 Balance 1000 / 1000 -730 / -610 343 / 343 Lab / Micro Data Result Diagrams: 10/06/22 02:05 10/06/22 02:05 Labs: Laboratory Results - last 24 hr 10/07/22 02:05: B-Natriuretic Peptide 145.7 H Rhythm Strip Rhythm Strip: Sinus Rhythm Cardiology Labs/Tests 10/07/22 02:05: B-Natriuretic Peptide 145.7 H Rhythm: EKG: ECHO: Stress Test: Cardiac Cath: PCI: CT Surgery: Holter monitor: EPS: PPM: CXR: Chest CT Scan: Radiography Diagnostic Testing: Radiology Impression Brain CT 10/06/22 16:19 IMPRESSION: Partial empty sella deformity. No acute bleed.. If concern for acute infarct MRI recommended Electronically Signed: Derrick Rendon MD at 17:09 EST , Chest X-Ray 10/07/22 01:17 IMPRESSION: Bilateral pneumonia is not significantly changed since the study from 10/06/2022. Stable right pleural effusion. Left pleural effusion has increased since the previous study. Electronically Signed: Virginia Sandoval MD at 2:27 EST , Physical Exam Narrative Comfortable. No distress. Heart sounds 1 and 2 noted. Irregularly irregular. Chest clear to auscultation. Abdomen soft. Alert oriented x3. No ankle edema. Assessment & Plan Assessment/Plan (1) Non-ST elevation [place] (NSTEMI): PLAN: Angiography revealed only mild RCA disease. Likely type II with her atrial fibrillation with rapid ventricular response. For risk factor modification for CAD. (2) Atrial fibrillation with RVR: PLAN: Started on Eliquis. Agree with rate control with amiodarone for now as her blood pressure is borderline. (3) Cardiomyopathy: PLAN: Possible Takotsubo's. Will start on low-dose beta-blockers and GRACE inhibitors once blood pressure is able to tolerate. (4) Pleural effusion: PLAN: As per internal medicine. Consider pulmonology consult.
--- NOTE | 2022-10-07 15:07 | EX.PCM.CONCC ---
Assessment & Plan Assessment/Plan (1) Pleural effusion: PLAN: Plan RECOMMENDATIONS: 1. Aggressive rate control per hospitalist/cardiology 2. Hold Eliquis 48 hours prior to thoracentesis 3. Walking oximetry prior to discharge 4. Diuresis as tolerated 5. Possible diagnostic/therapeutic thoracentesis on Monday if no response to diuretics 6. PA lateral chest x-ray on Monday morning IMPRESSIONS: 1. Left pleural effusion Unclear etiology at this time. Patient does not appear to have a significant past medical history, but EF is severely depressed despite a normal cardiac catheterization. Congestive heart failure would be a concern. This would explain patient's bilateral groundglass opacity and intraseptal thickening. Would recommend diuresis as tolerated. Patient does not have constitutional symptoms suggestive of pneumonia such as a purulent cough, fever or leukocytosis. Patient would benefit from aggressive rate control. Patient does have a history of previous breast cancer that is reportedly in remission. Patient likely will require a diagnostic/therapeutic thoracentesis if not responsive to diuretics by Monday. 2. Atypical chest pain/acute on chronic combined CHF with new onset a flutter/fib with RVR Patient would benefit from rate control. Unfortunately, patient has received anticoagulation, so thoracentesis cannot be completed today. This will need to be held for 48 hours prior to the procedure. Oxygenation appears to be improving. Patient may have a narrow therapeutic index for diuresis given blood pressures. Cardiology is following. 3. Constipation/anxiety/history of breast cancer/history of smoking Complicates care, management, recovery and prognosis. Patient has not smoked for some time now. Patient with previous mastectomy, so likelihood of breast cancer is somewhat reduced. Patient does not have significant findings of emphysema on chest imaging, but would need an outpatient pulmonary function test when euvolemic to clarify. HPI Consult Data Date of Consult: 10/07/22 HPI Narrative Reason for Consultation: Pleural effusion HPI Narrative: RACHEAL GONZALEZ is a 72 F, with past medical history listed below, who presented to [facility] on 10/05/2022 secondary to chest pain with radiation down the left arm. Patient had described this in the front of the chest and intermittently present. Patient had no history of pulmonary or cardiac disease. Patient had denied any previous history of PE, DVT, surgery or immobilization. Patient does not take any baseline medications, but did have breast cancer in the early and was currently in remission. In the ER, patient was afebrile, but tachycardic at 140 bpm. Patient was saturating well on room air at 97%. EKG had shown A-fib with RVR. Laboratory work-up showed a white blood cell count of 3.4, hemoglobin of 12.7 and platelets of 188. Chemistry showed a bicarbonate of 26 with a TSH of 1.89. Renal function was within normal limits. Troponin did go from 15 to 273. Chest x-ray showed a left pleural effusion with a left basilar infiltrate. Patient was admitted to the floor with a diagnosis of new onset A-fib with RVR and was placed on a low-dose beta-tee. Patient also diagnosed with a type II NSTEMI and atypical chest pain. Since being admitted to the hospital, patient has had a heart catheterization that required no intervention. An echocardiogram has shown an EF of 45% with severe inferior and posterior hypokinesis and no significant valvular abnormalities. Given patient's pleural effusion, pulmonary was consulted to give recommendations. Patient has been on anticoagulation, so thoracentesis cannot be completed at this time. Patient reports she did smoke in the past, but does not carry any formal diagnoses of COPD or asthma. Patient does not use any inhalers at baseline. Patient has not required supplemental oxygen. Patient describes herself is relatively healthy. Patient states her biggest issue at this time is a lack of sleep. Patient has never had a pleural effusion previously. Patient did have what sounds to be a JOLENE drain following mastectomy. Review of systems otherwise negative from a constitutional, HEENT, respiratory, cardiovascular, GI, genitourinary, musculoskeletal, skin, neurologic, psychiatric and hematologic system unless stated above. [facility] Medical History HX: breast cancer Hypoglycemia Home Medications NK 10/05/22 [History Last Taken Unknown] Allergy/AdvReac Type Severity Reaction Status Date / Time acetaminophen Allergy Other Verified 10/05/22 16:31 [From Darvocet-N] propoxyphene Allergy Other Verified 10/05/22 16:31 [From Darvocet-N] codeine AdvReac Nausea Verified 10/05/22 16:31 Surgical History History of mastectomy Hx of total mastectomy of left breast Social History Smoking Status: Former smoker ROS ROS Narrative See HPI Physical Exam Const alert, oriented x3 and no apparent distress Constitutional Narrative: Patient woke up easily from sleeping General Appearance: cooperative and well developed HEENT normocephalic, head/scalp atraumatic and moist oral mucous membranes HEENT Narrative: Glasses in place. Eyes PERRL and EOMs intact bilaterally Neck full ROM and no lymphadenopathy Chest Chest Narrative: No pain to palpation Resp normal respiratory effort and no use of accessory muscles Effort and Inspection: able to speak in complete sentences Auscultation: clear to auscultation bilaterally and rales; Negative for rhonchi or wheezes Percussion: dullness Lower: left Cardio regular rate, regular rhythm, S1 normal heart sound, S2 normal heart sound, no rub and no gallops Heart Sounds: murmur systolic II/ soft early right sternal border GI normal to inspection, nondistended, normoactive bowel sounds no CVA tenderness Extremity General Extremity: edema bilateral (Trace to 1+ bilateral) lower extremity; Negative for clubbing Skin no rashes or lesions noted Neuro oriented x3, CN's II-XII intact bilaterally, moves all extremities and no focal motor deficits Psych cooperative and affect normal Medical Records Data Attestation: I reviewed the patient's medical records Medical records narrative: CT scan of the chest was personally reviewed showing a left greater than right pleural effusion. There is an element of compressive atelectasis along with groundglass opacities no significant emphysema appreciated. Patient does have thickened airways noted. Cardiac cath report was also reviewed. Lab / Micro Data Attestation: I reviewed the patient's lab results. Result Diagrams: 10/06/22 02:05 10/06/22 02:05 Labs: Laboratory Results - last 24 hr 10/07/22 02:05: B-Natriuretic Peptide 145.7 H Rhythm Strip Rhythm Strip: Sinus Rhythm Radiology Impression Brain CT 10/06/22 16:19 IMPRESSION: Partial empty sella deformity. No acute bleed.. If concern for acute infarct MRI recommended Electronically Signed: Derrick Rendon MD at 17:09 EST , Chest X-Ray 10/07/22 01:17 IMPRESSION: Bilateral pneumonia is not significantly changed since the study from 10/06/2022. Stable right pleural effusion. Left pleural effusion has increased since the previous study. Electronically Signed: Virginia Sandoval MD at 2:27 EST Reading Location ID and State: [address] [place] [address] Tel , Service support , Charges/Coding Visit Charges Inpatient E&M: 95864 Init Hosp L2
[2022-10-07] MEDS: Ondansetron 4 MG/2 ML Vial IV (16:45)
[2022-10-07] MEDS: Atorvastatin Calcium 40 MG Tablet PO (22:37)
[2022-10-08] VITALS (9 sets, daily range): BP systolic 91–103; BP diastolic 55–65; PULSE 73–88; RESP 16–18; TEMP 36.6–36.9; O2SAT 95–98
[2022-10-08 06:53] LABS: Absolute Lymphocyte Count 0.84 X10^3/uL (0.83-4.51); Absolute Neutrophil Count 5.1 X10^3/uL (2.0-7.7); Basophil# 0.03 X10^3/uL; Basophil% 0.4 % (0-1); Eosinophil# 0.02 X10^3/uL; Eosinophils% 0.3 % (0-5); Hematocrit 40.7 % (37-47); Hemoglobin 13.1 g/dL (12.0-15.0); Lymphocyte # 0.84 X10^3/ul (0.83-4.51); Lymphocyte % 12.2 % (19-41); Mean Corp Hgb Conc 32.2 g/dL (32-36); Mean Corpuscular Hgb 29.8 pg (27.0-32.0); Mean Corpuscular Volume 92.7 fL (81-99); Mean Platelet Vol. 11.4 fl (6.2-12.0); Monocyte# 0.81 X10^3/uL; Monocyte% 11.8 % (0-10); NRBC Flagged by Analyzer 0 % (0-5); Neutrophil # 5.13 X10^3/uL (2.7-7.7); Neutrophil % 74.9 % (47-70); Platelet Count 179 K/mm3 (150-450); RBC Distribution Width SD 44.2 fl (35.1-43.9); Red Blood Count 4.39 M/mm3 (4.2-5.4); White Blood Count 6.9 K/mm3 (4.4-11.0)
[2022-10-08 07:06] LABS: Anion Gap 10 (5-15); BUN 20 mg/dL (7-18); BUN/Creat Ratio 25.3 RATIO (10-20); Calcium,Total 8.6 mg/dL (8.5-10.1); Chloride 103 mmol/L (98-107); Creatinine, Serum 0.79 mg/dL (0.55-1.02); EST Glomerular Filtration Rate 76 mL/min (>60); Est Glom Filt Rate - Afr Amer 92 mL/min (>60); Estimated Creatinine Clearance 36.53 ml/min; Glucose 74 mg/dL (74-106); Potassium 3.4 mmol/L (3.5-5.1); Sodium Level 138 mmol/L (136-145)
[2022-10-08] MEDS: Potassium Chloride Oral Tablet 10 MEQ PO (09:45)
[2022-10-08] MEDS: Furosemide 20 MG Tablet PO (09:45)
[2022-10-08] MEDS: Lisinopril 2.5 MG Tablet PO (09:45)
[2022-10-08] MEDS: Metoprolol Tartrate 25 MG Tablet PO ×2 (09:45→21:09)
[2022-10-08] MEDS: APIXABAN 2.5 MG TABLET (WCH) PO (09:45)
[2022-10-08] MEDS: Amiodarone 200 MG Tablet PO (09:45)
--- NOTE | 2022-10-08 10:33 | PN.CARD_ITS ---
Subjective Subjective Denies any complaints Objective Data Vital Signs: Vital Signs Temp Pulse Resp BP Pulse Ox O2 Del Method O2 Flow Rate 98.3 F 74 16 91/61 95 Nasal Cannula 3 10/08/22 09:31 10/08/22 09:45 10/08/22 09:31 10/08/22 09:45 10/08/22 09:31 10/08/22 09:34 10/08/22 09:34 Oxygen Flow Rate (L/min) 3 Oxygen Delivery Method Nasal Cannula Weight: 107 lb 12.897 oz Body Mass Index (BMI) 20.7 Intake & Output: Intake and Output for Last 24 Hours 10/06/22 10/07/22 10/08/22 23:59 23:59 23:59 Intake Total 1220 / 1340 343 / 463 120 / 120 Output Total 1950 / 1950 Balance -730 / -610 343 / 463 120 / 120 Lab / Micro Data Result Diagrams: 10/08/22 06:20 10/08/22 06:20 Labs: Laboratory Results - last 24 hr 10/07/22 02:05: B-Natriuretic Peptide 145.7 H 10/08/22 06:20: WBC 6.9, RBC 4.39, Hgb 13.1, Hct 40.7, MCV 92.7, MCH 29.8, MCHC 32.2, RDW Std Deviation 44.2 H, RDW Coeff of Madhu 13.0, Plt Count 179, MPV 11.4, Immature Gran % (Auto) 0.400, Neut % (Auto) 74.9 H, Lymph % (Auto) 12.2 L, [place] % (Auto) 11.8 H, Eos % (Auto) 0.3, Baso % (Auto) 0.4, Absolute Neuts (auto) 5.1, Absolute Lymphs (auto) 0.84, Nucleated RBC % 0 10/08/22 06:20: Sodium 138, Potassium 3.4 L, Chloride 103, Carbon Dioxide 25.0, Anion Gap 10, BUN 20 H, Creatinine 0.79, Estim Creat Clear Calc 36.53, Est GFR (MDRD) Af Amer 92, Est GFR (MDRD) Non-Af 76, BUN/Creatinine Ratio 25.3 H, Glucose 74, Calcium 8.6 Rhythm Strip Rhythm Strip: A-fib Cardiology Labs/Tests 10/07/22 02:05: B-Natriuretic Peptide 145.7 H 10/08/22 06:20: WBC 6.9, RBC 4.39, Hgb 13.1, Hct 40.7, MCV 92.7, MCH 29.8, MCHC 32.2, Plt Count 179, MPV 11.4, Immature Gran % (Auto) 0.400, Neut % (Auto) 74.9 H, Lymph % (Auto) 12.2 L, [place] % (Auto) 11.8 H, Eos % (Auto) 0.3, Baso % (Auto) 0.4, Absolute Neuts (auto) 5.1, Nucleated RBC % 0 10/08/22 06:20: Sodium 138, Potassium 3.4 L, Chloride 103, Carbon Dioxide 25.0, Anion Gap 10, BUN 20 H, Creatinine 0.79, Est GFR (MDRD) Af Amer 92, Est GFR (MDRD) Non-Af 76, BUN/Creatinine Ratio 25.3 H, Glucose 74, Calcium 8.6 Rhythm: Atrial fibrillation EKG: ECHO: Stress Test: Cardiac Cath: PCI: CT Surgery: Holter monitor: EPS: PPM: CXR: Chest CT Scan: Assessment & Plan Assessment/Plan (1) Non-ST elevation [place] (NSTEMI): PLAN: Angiography revealed only mild RCA disease. Likely type II with her atrial fibrillation with rapid ventricular response. For risk factor modification for CAD. (2) Atrial fibrillation with RVR: PLAN: Started on Eliquis. May hold for planned thoracentesis. Agree with rate control with amiodarone for now as her blood pressure is borderline. Start on digoxin (3) Cardiomyopathy: PLAN: Possible Takotsubo's. Will start on low-dose beta-blockers and GRACE inhibitors once blood pressure is able to tolerate. (4) Pleural effusion: PLAN: As per internal medicine. Consider pulmonology consult.
[2022-10-08] MEDS: Digoxin 250 MCG Tablet 500 MCG PO (11:20)
--- NOTE | 2022-10-08 11:45 | PN.CC_ITS ---
Assessment & Plan Assessment/Plan (1) Pleural effusion: PLAN: Plan RECOMMENDATIONS: 1. Aggressive rate control per hospitalist/cardiology 2. Hold Eliquis 48 hours prior to thoracentesis 3. Walking oximetry prior to discharge 4. Diuresis as tolerated. Limited by blood pressures 5. Possible diagnostic/therapeutic thoracentesis on Monday if no response to diuretics 6. PA lateral chest x-ray on Monday morning IMPRESSIONS: 1. Left pleural effusion Unclear etiology at this time. Patient does not appear to have a s ignificant past medical history, but EF is severely depressed despite a normal cardiac catheterization. Takotsubo cardiomyopathy is being considered. Congestive heart failure would be a concern. This would explain patient's bilateral groundglass opacity and intraseptal thickening. Would recommend diuresis as tolerated. Patient does not have constitutional symptoms suggestive of pneumonia such as a purulent cough, fever or leukocytosis. Patient would benefit from aggressive rate control. Patient does have a history of previous breast cancer that is reportedly in remission. Patient likely will require a diagnostic/therapeutic thoracentesis if not responsive to diuretics by Monday. 2. Atypical chest pain/acute on chronic combined CHF with new onset a flutter/fib with RVR Patient would benefit from rate control. Unfortunately, patient has received anticoagulation, so thoracentesis cannot be completed today. This will need to be held for 48 hours prior to the procedure. Oxygenation appears to be improving. Patient may have a narrow therapeutic index for diuresis given blood pressures. Cardiology is following. 3. Constipation/anxiety/history of breast cancer/history of smoking Complicates care, management, recovery and prognosis. Patient has not smoked for some time now. Patient with previous mastectomy, so likelihood of breast cancer is somewhat reduced. Patient does not have significant findings of emphysema on chest imaging, but would need an outpatient pulmonary function test when euvolemic to clarify. Subjective Subjective Patient did okay overnight. No acute issues were reported. Patient subjectively feels the same as yesterday. Patient has reported some chest pains on the right without radiation. Patient much more interactive today compared to yesterday. Objective Data Objective Data Vital Signs: Vital Signs Temp Pulse Resp BP Pulse Ox O2 Del Method O2 Flow Rate 36.8 C 74 16 91/61 95 Nasal Cannula 3 10/08/22 09:31 10/08/22 09:45 10/08/22 09:31 10/08/22 09:45 10/08/22 09:31 10/08/22 09:34 10/08/22 09:34 Oxygen Flow Rate (L/min) 3 Oxygen Delivery Method Nasal Cannula Weight: 48.9 kg Body Mass Index (BMI) 20.7 Intake & Output: Intake and Output for Last 24 Hours 10/06/22 10/07/22 10/08/22 23:59 23:59 23:59 Intake Total 1220 / 1340 343 / 463 500 / 500 Output Total 1950 / 1950 Balance -730 / -610 343 / 463 500 / 500 Lab / Micro Data Attestation: I reviewed the patient's lab results. Result Diagrams: 10/08/22 06:20 10/08/22 06:20 Labs: Laboratory Results - last 24 hr 10/07/22 02:05: B-Natriuretic Peptide 145.7 H 10/08/22 06:20: WBC 6.9, RBC 4.39, Hgb 13.1, Hct 40.7, MCV 92.7, MCH 29.8, MCHC 32.2, RDW Std Deviation 44.2 H, RDW Coeff of Madhu 13.0, Plt Count 179, MPV 11.4, Immature Gran % (Auto) 0.400, Neut % (Auto) 74.9 H, Lymph % (Auto) 12.2 L, [place] % (Auto) 11.8 H, Eos % (Auto) 0.3, Baso % (Auto) 0.4, Absolute Neuts (auto) 5.1, Absolute Lymphs (auto) 0.84, Nucleated RBC % 0 10/08/22 06:20: Sodium 138, Potassium 3.4 L, Chloride 103, Carbon Dioxide 25.0, Anion Gap 10, BUN 20 H, Creatinine 0.79, Estim Creat Clear Calc 36.53, Est GFR (MDRD) Af Amer 92, Est GFR (MDRD) Non-Af 76, BUN/Creatinine Ratio 25.3 H, Glucose 74, Calcium 8.6 Micro: Microbiology 10/05/22 22:50 Nasal Secretion SARS-CoV-2 & FLU Antigen (Rapid) - Final Rhythm Strip Rhythm Strip: A-fib Rate: 85 Physical Exam Const alert, oriented x3 and no apparent distress Constitutional Narrative: Patient more interactive today compared to yesterday General Appearance: cooperative and well developed HEENT normocephalic, head/scalp atraumatic and moist oral mucous membranes Eyes PERRL and EOMs intact bilaterally Neck full ROM and no lymphadenopathy Chest Chest Narrative: No pain to palpation Resp normal respiratory effort and no use of accessory muscles Effort and Inspection: able to speak in complete sentences Auscultation: clear to auscultation bilaterally and rales; Negative for rhonchi or wheezes Percussion: dullness Lower: left Cardio regular rate, regular rhythm, S1 normal heart sound, S2 normal heart sound, no rub and no gallops Heart Sounds: murmur systolic II/ soft early right sternal border GI normal to inspection, nondistended, normoactive bowel sounds no CVA tenderness Extremity General Extremity: edema bilateral (Trace to 1+ bilateral) lower extremity; Negative for clubbing Skin no rashes or lesions noted Neuro oriented x3, CN's II-XII intact bilaterally, moves all extremities and no focal motor deficits Psych cooperative and affect normal Charges/Coding Visit Charges Inpatient E&M: 24660 Subs Hosp L2
--- NOTE | 2022-10-08 16:19 | PN.HOSP_ITS ---
Reason for Visit Reason for Visit: Diagnoses Chest pain Subjective Subjective Mrs. Adame is a 72-year-old white female who presented to the emergency department on 10/05/2022 with chest pain. She reported that it started suddenly in the afternoon of admission and went down her left arm and was present until approximately 1 hour prior to being seen in the emergency department. She was found to be in A-fib with RVR on presentation with her highest heart rate at 157. She did spontaneously convert into normal sinus rhythm in the emergency department. Initial troponin was 15 however subsequent troponin increased to 273. Cardiology was consulted and the patient was taken to the [facility] and found to have mild RCA disease as well as a nonischemic cardiomyopathy with an EF of 45% on echocardiogram (severe inferior and posterior hypokinesis) with suspected Takotsubo cardiomyopathy and medical management was recommended. She was found to have a sizable left pleural effusion which the etiology is unclear. She has been on diuretics and previous hospitalist did discuss the case with Dr. Sánchez and she is on the schedule for thoracentesis on Monday if need be. Eliquis for her A-fib has been held in preparation for this. She has been having ongoing intermittent atrial fibrillation and digoxin was added today by cardiology. The patient overall voices no complaints at this time. She seems to be knowledgeable of the present plan and has no questions. Objective Data Objective Data Vital Signs: Vital Signs Temp Pulse Resp BP Pulse Ox O2 Del Method O2 Flow Rate 98.3 F 83 16 103/59 L 97 Nasal Cannula 2 10/08/22 13:56 10/08/22 13:56 10/08/22 13:56 10/08/22 13:56 10/08/22 13:56 10/08/22 13:56 10/08/22 13:56 Oxygen Flow Rate (L/min) 2 Oxygen Delivery Method Nasal Cannula Weight: 48.9 kg Body Mass Index (BMI) 20.7 Intake & Output: Intake and Output for Last 24 Hours 10/06/22 10/07/22 10/08/22 23:59 23:59 23:59 Intake Total 1220 / 1340 343 / 463 500 / 500 Output Total 1950 / 1950 Balance -730 / -610 343 / 463 500 / 500 Lab / Micro Data Result Diagrams: 10/08/22 06:20 10/08/22 06:20 Labs: Laboratory Results - last 24 hr 10/08/22 06:20: WBC 6.9, RBC 4.39, Hgb 13.1, Hct 40.7, MCV 92.7, MCH 29.8, MCHC 32.2, RDW Std Deviation 44.2 H, RDW Coeff of Madhu 13.0, Plt Count 179, MPV 11.4, Immature Gran % (Auto) 0.400, Neut % (Auto) 74.9 H, Lymph % (Auto) 12.2 L, [place] % (Auto) 11.8 H, Eos % (Auto) 0.3, Baso % (Auto) 0.4, Absolute Neuts (auto) 5.1, Absolute Lymphs (auto) 0.84, Nucleated RBC % 0 10/08/22 06:20: Sodium 138, Potassium 3.4 L, Chloride 103, Carbon Dioxide 25.0, Anion Gap 10, BUN 20 H, Creatinine 0.79, Estim Creat Clear Calc 36.53, Est GFR (MDRD) Af Amer 92, Est GFR (MDRD) Non-Af 76, BUN/Creatinine Ratio 25.3 H, Glucose 74, Calcium 8.6 Micro: Microbiology 10/05/22 22:50 Nasal Secretion SARS-CoV-2 & FLU Antigen (Rapid) - Final Rhythm Strip Rhythm Strip: A-fib Rate: 85 Physical Exam Const alert, no apparent distress, average body habitus, healthy appearing and well nourished Constitutional Narrative: Older white female sitting up in bed, appears comfortable nontoxic, nursing at bedside HEENT head/scalp atraumatic and moist oral mucous membranes Head and Scalp: normocephalic Resp normal respiratory effort, no retractions and no use of accessory muscles Resp Narrative: Markedly diminished on the left side, few crackles noted at the left base/mid lung area Auscultation: rales; Negative for rhonchi or wheezes Cardio S1 normal heart sound, S2 normal heart sound, no murmurs, no rub, no gallops and no clicks Cardio Narrative: Irregular irregular rhythm with normal rate at this time GI normal to inspection, nondistended, normoactive bowel sounds, soft to palpation and non-tender Extremity no clubbing, cyanosis or edema Extremity Narrative: 2+ pedal pulses Neuro oriented x3, moves all extremities and no focal motor deficits Speech: speech normal Psych Psych Narrative: Very pleasant, eye contact is good, appropriately interactive Assessment & Plan Assessment/Plan (1) Pleural effusion: (2) Cardiomyopathy: (3) Non-ST elevation CT (NSTEMI): (4) Atrial fibrillation with RVR: (5) Hypoxia: (6) Hypokalemia: PLAN: Plan Atrial fibrillation with RVR -Patient still in and out of A-fib -Cardiac catheterization with mild RCA disease and nonischemic cardiomyopathy with suspected Takotsubo -EF was 45% on echocardiogram -Continue metoprolol 25 mg p.o. twice daily with as needed dosing IV -Continue amiodarone 200 mg daily -Digoxin added today with bolus followed by 125 pg orally daily -Eliquis with hold parameters and starting tomorrow -Increase dose to 5 mg p.o. twice daily NSTEMI type II -Nonobstructive disease noted on cath with mild RCA disease -Type II NSTEMI suspected with A-fib -No aspirin needed -Continue statin -We will need outpatient cardiology follow-up Left pleural effusion -Appears to be large -Etiology is unknown at this time -Plan is for thoracentesis on Monday -Patient remains on 2 L nasal cannula Hypoxia -Suspect related to large left pleural effusion -Thoracentesis Monday -Wean oxygen as able -Currently on 2 L Hypokalemia -Mild -20 mEq of potassium added to daily 10 mill equivalents that are scheduled -Repeat BMP and check magnesium level in a.m. DVT prophylaxis -Apixaban with increased dose to 5 mg twice daily CODE STATUS -Full code Charges/Coding Visit Charges Inpatient E&M: 20146 Subs Hosp L2
[2022-10-08] MEDS: Potassium Chloride Oral Tablet 20 MEQ PO (17:05)
[2022-10-08] MEDS: Digoxin 250 MCG Tablet PO (17:47)
[2022-10-08] MEDS: Atorvastatin Calcium 40 MG Tablet PO (21:09)
[2022-10-09] VITALS (12 sets, daily range): BP systolic 77–106; BP diastolic 53–70; PULSE 79–94; RESP 16–18; TEMP 36.2–36.8; O2SAT 93–98
[2022-10-09 05:50] LABS: Anion Gap 9 (5-15); BUN 22 mg/dL (7-18); Calcium,Total 8.3 mg/dL (8.5-10.1); Chloride 105 mmol/L (98-107); Creatinine, Serum 0.67 mg/dL (0.55-1.02); EST Glomerular Filtration Rate 92 mL/min (>60); Est Glom Filt Rate - Afr Amer 112 mL/min (>60); Estimated Creatinine Clearance 36.53 ml/min; Glucose 89 mg/dL (74-106); Potassium 3.8 mmol/L (3.5-5.1); Sodium Level 139 mmol/L (136-145)
[2022-10-09] MEDS: Digoxin 125 MCG Tablet PO (09:36)
[2022-10-09] MEDS: Lisinopril 2.5 MG Tablet PO (09:36)
[2022-10-09] MEDS: Metoprolol Tartrate 25 MG Tablet PO ×2 (09:36→22:27)
[2022-10-09] MEDS: Furosemide 20 MG Tablet PO (09:36)
[2022-10-09] MEDS: Potassium Chloride Oral Tablet 10 MEQ PO (09:36)
[2022-10-09] MEDS: Amiodarone 200 MG Tablet PO (09:36)
[2022-10-09] MEDS: 0.9% Saline Lock 10 ML Syringe IV ×2 (09:37→16:33)
--- NOTE | 2022-10-09 10:52 | PCM.PN.INT ---
Assessment & Plan Assessment/Plan (1) Pleural effusion: PLAN: Plan RECOMMENDATIONS: 1. Aggressive rate control per hospitalist/cardiology 2. Continue to hold Eliquis pending thoracentesis 3. Chest x-ray in a.m. Thoracentesis if pleural effusion still present 4. Diuresis as tolerated. Limited by blood pressures 5. Further pulmonary recommendations following fluid analysis IMPRESSIONS: 1. Left pleural effusion Unclear etiology at this time. Patient does not appear to have a significant past medical history, but EF is severely depressed despite a normal cardiac catheterization. Takotsubo cardiomyopathy is being considered. Congestive heart failure would be a concern. This would explain patient's bilateral groundglass opacity and intraseptal thickening. Would recommend diuresis as tolerated. Patient does not have constitutional symptoms suggestive of pneumonia such as a purulent cough, fever or leukocytosis. Patient would benefit from aggressive rate control. Patient does have a history of previous breast cancer that is reportedly in remission. Patient likely will require a diagnostic/therapeutic thoracentesis if not responsive to diuretics by Monday. Eliquis has been held. 2. Atypical chest pain/acute on chronic combined CHF with new onset a flutter/fib with RVR Patient would benefit from rate control. Unfortunately, patient has received anticoagulation, so thoracentesis cannot be completed today. This will need to be held for 48 hours prior to the procedure. Oxygenation appears to be improving. Patient may have a narrow therapeutic index for diuresis given blood pressures. Cardiology is following. 3. Constipation/anxiety/history of breast cancer/history of smoking Complicates care, management, recovery and prognosis. Patient has not smoked for some time now. Patient with previous mastectomy, so likelihood of breast cancer is somewhat reduced. Patient does not have significant findings of emphysema on chest imaging, but would need an outpatient pulmonary function test when euvolemic to clarify. Subjective Subjective Patient did well overnight. Patient subjectively feels she has a better exercise tolerance than previous day. Patient is not reporting any significant cough. No chest pain has been reported. Objective Data Objective Data Vital Signs: Vital Signs Temp Pulse Resp BP Pulse Ox O2 Del Method O2 Flow Rate 36.6 C 85 16 92/65 97 Nasal Cannula 2.5 10/09/22 09:29 10/09/22 09:36 10/09/22 09:29 10/09/22 09:36 10/09/22 09:29 10/09/22 09:31 10/09/22 09:31 Oxygen Flow Rate (L/min) 2.5 Oxygen Delivery Method Nasal Cannula Weight: 48.6 kg Body Mass Index (BMI) 20.7 Intake & Output: Intake and Output for Last 24 Hours 10/07/22 10/08/22 10/09/22 23:59 23:59 23:59 Intake Total 343 / 463 910 / 1030 240 / 240 Balance 343 / 463 910 / 1030 240 / 240 Lab / Micro Data Attestation: I reviewed the patient's lab results. Result Diagrams: 10/08/22 06:20 10/09/22 05:12 Labs: Laboratory Results - last 24 hr 10/09/22 05:12: Sodium 139, Potassium 3.8, Chloride 105, Carbon Dioxide 25.0, Anion Gap 9, BUN 22 H, Creatinine 0.67, Estim Creat Clear Calc 36.53, Est GFR (MDRD) Af Amer 112, Est GFR (MDRD) Non-Af 92, BUN/Creatinine Ratio 33.0 H, Glucose 89, Calcium 8.3 L Micro: Microbiology 10/05/22 22:50 Nasal Secretion SARS-CoV-2 & FLU Antigen (Rapid) - Final Physical Exam Const alert, oriented x3 and no apparent distress Constitutional Narrative: Patient tolerating movement better than yesterday General Appearance: cooperative and well developed HEENT normocephalic, head/scalp atraumatic and moist oral mucous membranes Eyes PERRL and EOMs intact bilaterally Neck full ROM and no lymphadenopathy Chest Chest Narrative: No pain to palpation Resp normal respiratory effort and no use of accessory muscles Effort and Inspection: able to speak in complete sentences Auscultation: clear to auscultation bilaterally and rales; Negative for rhonchi or wheezes Percussion: dullness Lower: left Cardio regular rate, regular rhythm, S1 normal heart sound, S2 normal heart sound, no rub and no gallops Heart Sounds: murmur systolic II/ soft early right sternal border GI normal to inspection, nondistended, normoactive bowel sounds no CVA tenderness Extremity General Extremity: edema bilateral (Trace ) lower extremity; Negative for clubbing Skin no rashes or lesions noted Neuro oriented x3, CN's II-XII intact bilaterally, moves all extremities and no focal motor deficits Psych cooperative and affect normal Charges/Coding Visit Charges Inpatient E&M: 53018 Subs Hosp L2
--- NOTE | 2022-10-09 13:27 | PCM.PN.HOSP ---
Reason for Visit Reason for Visit: Chest pain Subjective Subjective No significant issues overnight. Rate has been well controlled. Plan is still for thoracentesis tomorrow. Patient has not received Eliquis as this is on hold. No complaints at this time. Objective Data Objective Data Vital Signs: Vital Signs Temp Pulse Resp BP Pulse Ox O2 Del Method O2 Flow Rate 97.9 F 85 16 92/65 97 Nasal Cannula 2.5 10/09/22 09:29 10/09/22 09:36 10/09/22 09:29 10/09/22 09:36 10/09/22 09:29 10/09/22 09:31 10/09/22 09:31 Oxygen Flow Rate (L/min) 2.5 Oxygen Delivery Method Nasal Cannula Weight: 48.6 kg Body Mass Index (BMI) 20.7 Intake & Output: Intake and Output for Last 24 Hours 10/07/22 10/08/22 10/09/22 23:59 23:59 23:59 Intake Total 343 / 463 910 / 1030 240 / 240 Balance 343 / 463 910 / 1030 240 / 240 Lab / Micro Data Result Diagrams: 10/08/22 06:20 10/09/22 05:12 Labs: Laboratory Results - last 24 hr 10/09/22 05:12: Sodium 139, Potassium 3.8, Chloride 105, Carbon Dioxide 25.0, Anion Gap 9, BUN 22 H, Creatinine 0.67, Estim Creat Clear Calc 36.53, Est GFR (MDRD) Af Amer 112, Est GFR (MDRD) Non-Af 92, BUN/Creatinine Ratio 33.0 H, Glucose 89, Calcium 8.3 L Micro: Microbiology 10/05/22 22:50 Nasal Secretion SARS-CoV-2 & FLU Antigen (Rapid) - Final Rhythm Strip Rhythm Strip: A-fib Rate: 85 Physical Exam Const alert, no apparent distress, average body habitus, healthy appearing and well nourished Constitutional Narrative: Older white female sitting up in bed, appears comfortable nontoxic, watching television and playing games on iPad HEENT head/scalp atraumatic and moist oral mucous membranes Head and Scalp: normocephalic Resp normal respiratory effort, no retractions and no use of accessory muscles Resp Narrative: Markedly diminished on the left side Auscultation: Negative for rales, rhonchi or wheezes Cardio regular rate, S1 normal heart sound, S2 normal heart sound, no murmurs, no rub, no gallops and no clicks Cardio Narrative: Irregular irregular rhythm with normal rate at this time GI normal to inspection, nondistended, normoactive bowel sounds, soft to palpation and non-tender Extremity no clubbing, cyanosis or edema Extremity Narrative: 2+ pedal pulses Neuro oriented x3, moves all extremities and no focal motor deficits Speech: speech normal Psych Psych Narrative: Very pleasant, eye contact is good, appropriately interactive Assessment & Plan Assessment/Plan (1) Pleural effusion: (2) Cardiomyopathy: (3) Non-ST elevation [place] (NSTEMI): (4) Atrial fibrillation with RVR: (5) Hypoxia: (6) Hypokalemia: (7) Nonischemic cardiomyopathy: PLAN: Plan Atrial fibrillation with RVR -Patient still in and out of A-fib -Today heart rates are well controlled however patient is still in atrial fibrillation -Cardiac catheterization with mild RCA disease and nonischemic cardiomyopathy with suspected Takotsubo -EF was 45% on echocardiogram -Continue metoprolol 25 mg p.o. twice daily with as needed dosing IV -Continue amiodarone 200 mg daily -Digoxin added today with bolus followed by 125 pg orally daily -Eliquis with hold parameters and starting tomorrow -Increase dose to 5 mg p.o. twice daily NSTEMI type II -Nonobstructive disease noted on cath with mild RCA disease -Type II NSTEMI suspected with A-fib -No aspirin needed -Continue statin -We will need outpatient cardiology follow-up Takotsubo cardiomyopathy -Continue metoprolol -Increase diuresis Left pleural effusion -Appears to be large -We will try more aggressive diuresis today -Patient was on 20 mg p.o. daily -Increase to 40 mg p.o. daily -Repeat chest x-ray in a.m. -Etiology is unknown at this time -Current plan is for thoracentesis on Monday -Patient remains on 2 L nasal cannula Hypoxia -Suspect related to large left pleural effusion -Thoracentesis Monday -Increase aggressiveness of diuresis -Wean oxygen as able -Currently on 2 L Hypokalemia -Resolved -Repeat BMP -Levels normal DVT prophylaxis -Apixaban with increased dose to 5 mg twice daily--> currently on hold for thoracentesis -Restart tomorrow CODE STATUS -Full code Charges/Coding Visit Charges Inpatient E&M: 49797 Subs Hosp L2
[2022-10-09] MEDS: Atorvastatin Calcium 40 MG Tablet PO (22:27)
[2022-10-10] VITALS (9 sets, daily range): BP systolic 86–109; BP diastolic 35–63; PULSE 63–100; RESP 12–18; TEMP 36.6–36.8; O2SAT 95–99
[2022-10-10] MEDS: Acetaminophen 325 MG Tablet 650 MG PO (01:34)
[2022-10-10 05:53] LABS: Absolute Lymphocyte Count 0.96 X10^3/uL (0.83-4.51); Absolute Neutrophil Count 3.3 X10^3/uL (2.0-7.7); Basophil# 0.04 X10^3/uL; Basophil% 0.8 % (0-1); Eosinophil# 0.09 X10^3/uL; Eosinophils% 1.8 % (0-5); Hematocrit 39.8 % (37-47); Hemoglobin 12.7 g/dL (12.0-15.0); Lymphocyte # 0.96 X10^3/ul (0.83-4.51); Mean Corp Hgb Conc 31.9 g/dL (32-36); Mean Corpuscular Hgb 29.7 pg (27.0-32.0); Mean Platelet Vol. 10.9 fl (6.2-12.0); Monocyte# 0.66 X10^3/uL; Monocyte% 13.1 % (0-10); NRBC Flagged by Analyzer 0 % (0-5); Neutrophil # 3.29 X10^3/uL (2.7-7.7); Neutrophil % 65.1 % (47-70); Platelet Count 245 K/mm3 (150-450); RBC Distribution Width CV 12.7 % (11.6-14.6); RBC Distribution Width SD 43.3 fl (35.1-43.9); Red Blood Count 4.28 M/mm3 (4.2-5.4); White Blood Count 5.1 K/mm3 (4.4-11.0)
--- NOTE | 2022-10-10 05:55 | RAD_ITS ---
STUDY: X-RAY CHEST REASON FOR EXAM: Female, 72 years old. Effusion TECHNIQUE: Single AP portable view of the chest. COMPARISON: Comparison is made with prior examination of 10/07/2022. FINDINGS: EKG electrodes are seen. Surgical clips are seen in both axillary regions. Small left pleural effusion with left basilar infiltration. There has been improvement as compared to prior study. Mild persistent increased markings in both upper lobes. Normal size heart. Normal mediastinum and lavelle. Normal visualized pulmonary arteries. Normal visualized aortic arch and descending thoracic aorta. There is a levoscoliosis of the thoracic spine. Dextroscoliosis of the lumbar spine. Normal visualized ribs, clavicles, and shoulders. There is no demonstrated abnormality of the visualized soft tissue structures of the upper abdomen. RAD/Chest 1 View (Portable) IMPRESSION: Persistent left lower lobe infiltration and small left pleural effusion. There has been improvement as compared to prior study. Electronically Signed: Geoffrey Sánchez MD at 11:24 EST ,
[2022-10-10 06:32] LABS: Anion Gap 8 (5-15); BUN 24 mg/dL (7-18); Calcium,Total 8.7 mg/dL (8.5-10.1); Chloride 106 mmol/L (98-107); Creatinine, Serum 0.83 mg/dL (0.55-1.02); EST Glomerular Filtration Rate 72 mL/min (>60); Est Glom Filt Rate - Afr Amer 87 mL/min (>60); Estimated Creatinine Clearance 44.01 ml/min; Glucose 97 mg/dL (74-106); Potassium 3.9 mmol/L (3.5-5.1); Sodium Level 140 mmol/L (136-145)
--- NOTE | 2022-10-10 07:00 | US_ITS ---
PROCEDURE: ULTRASOUND GUIDED THORACENTESIS. DATE: 10/10/2022.. INDICATION: Female, 72 years old. Left thoracentesis. PHYSICIAN: Geoffrey Sánchez M.D. PROCEDURE: The risks, benefits, and alternatives to the procedure were explained to the patient. The specific risks of bleeding, infection, and pneumothorax requiring chest tube insertion were discussed and accepted. Written informed consent was obtained. Ultrasonographic evaluation of the left lower pleural space was carried out. An adequate pocket was identified. The patient was placed in the sitting, upright position. The overlying skin was prepped and draped in sterile fashion. 1% lidocaine was administered subcutaneously for local anesthesia. Under ultrasound guidance, a 5 [place] thoracentesis needle/catheter system was advanced into the left posterior lower pleural fluid collection. Approximately 350 mL of shayne-colored fluid was drained. The catheter was removed, and a sterile dressing was applied. A specimen was collected and sent to the laboratory for analysis, as requested by the referring clinician. The patient tolerated the procedure well. A chest x-ray was ordered. US/Thoracentesis W US IMPRESSION: Ultrasound-guided left thoracentesis. Electronically Signed: Geoffrey Sánchez MD at 14:08 EST ,
[2022-10-10] MEDS: Potassium Chloride Oral Tablet 10 MEQ PO (09:34)
[2022-10-10] MEDS: Amiodarone 200 MG Tablet PO (09:35)
[2022-10-10] MEDS: Furosemide 40 MG Tablet PO (09:35)
[2022-10-10] MEDS: Digoxin 125 MCG Tablet PO (09:35)
--- NOTE | 2022-10-10 12:15 | PN.CC_ITS ---
Assessment & Plan Assessment/Plan (1) Pleural effusion: PLAN: Plan RECOMMENDATIONS: 1. Continue diuresis as tolerated by hemodynamics and renal function. 2. Ultrasound-guided thoracentesis with pleural fluid analysis. 3. Resume Eliquis after thoracentesis. 4. Outpatient pulmonary follow-up to review pleural fluid analysis. 5. Encourage incentive spirometer use and mobilize patient as tolerated. 6. We will sign off from a pulmonary perspective. Please call with any additional questions. IMPRESSIONS: 1. Left pleural effusion Most likely secondary to acute decompensated heart failure in the setting of atrial fibrillation. Agree with pursuing ultrasound-guided thoracentesis with pleural fluid analysis. Given that the patient is maintaining appropriate saturations on room air and is medically stable, she could be discharged home post thoracentesis with outpatient pulmonary follow-up to review the pleural fluid analysis. 2. Atypical chest pain/acute on chronic combined CHF with new onset a flutter/ fib with RVR Continue medical management per cardiology recommendations. 3. Constipation/anxiety/history of breast cancer/history of smoking Complicates care, management, recovery and prognosis. Patient has not smoked for some time now. Patient with previous mastectomy, so likelihood of breast cancer is somewhat reduced. This note was generated with [employer] dictation software. It may contain incorrect words, spelling, and punctuation that were not noted in checking the note before signing. Subjective Subjective The patient was seen and examined at the bedside this morning. Events from the last 24 hours have been reviewed. The patient is currently afebrile, hemodynamically stable and maintaining appropriate oxygen saturations on room air. The patient has a ultrasound-guided thoracentesis scheduled for this afternoon. She denies any resting shortness of breath. Objective Data Objective Data The patient's most recent lab work, culture data and imaging studies have all been personally reviewed. Vital Signs: Vital Signs Temp Pulse Resp BP Pulse Ox O2 Del Method O2 Flow Rate 98.0 F 65 12 91/35 L 97 Room Air 2 10/10/22 11:35 10/10/22 11:35 10/10/22 11:35 10/10/22 11:35 10/10/22 11:35 10/10/22 11:35 10/09/22 14:19 Oxygen Flow Rate (L/min) 2 Oxygen Delivery Method Room Air Weight: 106 lb 0.677 oz Body Mass Index (BMI) 20.7 Intake & Output: Intake and Output for Last 24 Hours 10/08/22 10/09/22 10/10/22 23:59 23:59 23:59 Intake Total 910 / 1030 1230 / 1230 200 / 200 Balance 910 / 1030 1230 / 1230 200 / 200 Lab / Micro Data Attestation: I reviewed the patient's lab results. Result Diagrams: 10/10/22 05:32 10/10/22 05:32 Labs: Laboratory Results - last 24 hr 10/10/22 05:32: WBC 5.1, RBC 4.28, Hgb 12.7, Hct 39.8, MCV 93.0, MCH 29.7, MCHC 31.9 L, RDW Std Deviation 43.3, RDW Coeff of Madhu 12.7, Plt Count 245, MPV 10.9, Immature Gran % (Auto) 0.200, Neut % (Auto) 65.1, Lymph % (Auto) 19.0, [place] % (Auto) 13.1 H, Eos % (Auto) 1.8, Baso % (Auto) 0.8, Absolute Neuts (auto) 3.3, Absolute Lymphs (auto) 0.96, Nucleated RBC % 0 10/10/22 05:32: Sodium 140, Potassium 3.9, Chloride 106, Carbon Dioxide 26.0, Anion Gap 8, BUN 24 H, Creatinine 0.83, Estim Creat Clear Calc 44.01, Est GFR (MDRD) Af Amer 87, Est GFR (MDRD) Non-Af 72, BUN/Creatinine Ratio 29.0 H, Glucose 97, Calcium 8.7 Micro: Microbiology 10/05/22 22:50 Nasal Secretion SARS-CoV-2 & FLU Antigen (Rapid) - Final Radiography Diagnostic Testing: Radiology Impression Chest X-Ray 10/10/22 05:55 IMPRESSION: Persistent left lower lobe infiltration and small left pleural effusion. There has been improvement as compared to prior study. Electronically Signed: Geoffrey Sánchez MD at 11:24 EST , Rhythm Strip Rhythm Strip: A-fib Rate: 85 Physical Exam Const alert, oriented x3 and no apparent distress General Appearance: cooperative HEENT normocephalic, head/scalp atraumatic and moist oral mucous membranes Eyes PERRL, EOMs intact bilaterally and conjunctivae normal Neck supple General: trachea midline Chest inspection of chest normal Resp Auscultation: diminished lung sounds left lower Cardio regular rate and regular rhythm GI normal to inspection, nondistended, normoactive bowel sounds Extremity no clubbing, cyanosis or edema Skin no rashes or lesions noted Neuro oriented x3, CN's II-XII intact bilaterally and moves all extremities Psych cooperative and affect normal Charges/Coding Visit Charges Inpatient E&M: 80535 Subs Hosp L2
[2022-10-10] MEDS: LORazepam 0.5 MG Tablet PO (12:20)
--- NOTE | 2022-10-10 13:30 | FLU_PTH ---
PATIENT: RACHEAL GONZALEZ LOC: [facility] U#:[id number] AGE/SX: 72/F ROOM: [facility] RE10/06/[address]: Dr. Penelope Jenkins DO : 1950 BED: 1 DIS: 10/10/2022 SPEC #: [id number] RECD: 10/10/22 13:58 STATUS: JEFFREY RE #: [id number] SEAN: 10/10/22 13:[address]: Penelope Jenkins DEPT: CYTOLOGY RECD BY: Talisha Tam ENTERED: 10/11/22 10:01 SP TYPE: Fluid OTHR DR: MD Dr. Arie Aaron MD Dr. Derek Brown, DO Dr. Lee Ann Baggott, MD Dr. Prakash Chand, MD Dr. Paige Pierce, MD Dr. Tanmay Panchabhai, MD Christina Muller, STONE BANKER-C Emiliano Ureña MD Tissues: Pleural fluid, NOS Procedures: Special Stain Group II Surgery Specimen Level IV Cytospin Fluid HEADER OPERATION: Thoracentesis PRE-OP DIAGNOSIS: Pleural effusion TISSUE SUBMITTED: Thoracentesis fluid for cytology DIAGNOSIS CYTOLOGY Thoracentesis fluid for cytology (cytospin and cell block): Negative for malignant cells. See comment. GUSTAVO:billy 10/12/2022 COMMENT Correlation with clinical, radiologic findings and appropriate follow up are necessary. CYTOLOGY STUDY Slides are reviewed. CYTOLOGY GROSS Received is 50 ml of yellow cloudy fluid labeled with the patient's name and and designated per the requisition as thoracentesis. Submitted for cytology preparation including cell block. / billy 10/11/2022 TC:5 CPT: 80111, 38453
[2022-10-10] MEDS: Lidocaine 2% (20 ml mdv) 20 ML Vial INFILT (13:38)
--- NOTE | 2022-10-10 13:45 | RAD_ITS ---
STUDY: X-RAY CHEST REASON FOR EXAM: Female, 72 years old. Pneumothorax -- immediately post thoracentesis TECHNIQUE: AP inspiration and expiration views. COMPARISON: Comparison is made with prior study done earlier in the day. FINDINGS: The patient is status post left thoracentesis. No evidence of pneumothorax. RAD/Chest Insp/Exp 2 View IMPRESSION: Status post left thoracentesis. No evidence of pneumothorax. Electronically Signed: Geoffrey Sánchez MD at 14:00 EST ,
[2022-10-10 14:05] LABS: Cytology, Body Fluid / CSF SEE PATHOLOGY REPORT
[2022-10-10 14:32] LABS: Body Fluid Mononuclear WBC # 0.254 10^3/uL; Body Fluid Mononuclear WBC % 65.8 %; Body Fluid Polynuclear WBC # 0.132 10^3/uL; Body Fluid Polynuclear WBC % 34.2 %; Body Fluid Total Cells Counted 0.487 10^3/ul; White Blood Count/Body Fluid 0.386 10^3/uL
[2022-10-10 14:39] LABS: Appearance/Body Fluid CLEAR; Auto B Fluid Analyzer BKGD Ct COUNTS W/IN LIMITS (W/IN LIMITS); Color/Body Fluid LT YEL; Source- Body Fluid THORACENTESIS
--- NOTE | 2022-10-10 14:45 | CASEMGMT ---
Addendum entered by Zoie Isbell 10/10/22 15:00: NATALIA RUIZ noted that patient is discharging on Eliquis, savings card provided to patient Original Note: NATALIA RUZI updated that patient will be discharging. NATALIA RUIZ in to discuss discharge needs. Patient denies needs at this time. NATALIA RUIZ instructed patient that if she reconsidered HHC or DME to follow-up with PCP, patient voiced understanding.
--- NOTE | 2022-10-10 14:50 | PCM.DC.SUM ---
Providers Date of Admission: 10/06/22 Date of Discharge: 10/10/22 Primary Care Physician: Emiliano Ureña MD Consultations 10/06/22 10:00 Consult: Cardiology Routine Consulting Provider: Betsy Souza Reason for Consult: NSTEMI, Atypical CP, Afib RVR converted EMERGENT Consult: No Notified: Yes Date Notified: 10/06/22 Time Notified: 10:30 Method of Notification: Verbal 10/07/22 12:35 Consult: Baggage Agent Supervisor / Pulmonary Medicine Routine Consulting Provider: Pulmonary Medicine lacey Foss Reason for Consult: B/L pleural effusion, Lt >Right EMERGENT Consult: No Notified: Yes Date Notified: 10/07/22 Time Notified: 12:36 Method of Notification: Text Reason For Visit: AFIB W/ RVR Diagnosis Discharge Diagnosis (1) Pleural effusion: Status: Acute Code(s): J90 - Pleural effusion, not elsewhere classified Medications at Discharge Home Medications amiodarone 200 mg tablet 200 mg PO DAILY #30 tabs 10/10/22 apixaban 5 mg tablet (Eliquis) 5 mg PO BID #60 tabs 10/10/22 atorvastatin 40 mg tablet 40 mg PO QHS #30 tabs 10/10/22 digoxin 125 mcg (0.125 mg) tablet 125 mcg PO DAILY #30 tabs 10/10/22 metoprolol tartrate 25 mg tablet 12.5 mg PO BID #30 tabs 10/10/22 Hospital Course Procedures 2-D Echocardiogram, Cardiac catheterization, EKG, Thoracentesis and - (Chest x-ray/CTA of the chest abdomen pelvis) Summary of Care Provided Minutes Spent on Discharge: 38 Hospital Course: Mrs. Adame is a 72-year-old white female who presented to the emergency department on 10/05/2022 with chest pain.? She reported that it started suddenly in the afternoon of admission and went down her left arm and was present until approximately 1 hour prior to being seen in the emergency department.? She was found to be in A-fib with RVR on presentation with her highest heart rate at 157. This is a new diagnosis for her she did spontaneously convert into normal sinus rhythm in the emergency department.? Initial troponin was 15 however subsequent troponin increased to 273.? Cardiology was consulted and the patient was taken to the [facility] and found to have mild RCA disease as well as a nonischemic cardiomyopathy with an EF of 45% on echocardiogram (severe inferior and posterior hypokinesis) with suspected Takotsubo cardiomyopathy and medical management was recommended.? She was found to have a sizable left pleural effusion which the etiology is unclear, however cardiac etiology was suspected.? She was placed on beta-blockade, amiodarone, and digoxin with markedly improved heart rate however she did remain in a fibrillation at the time of discharge. Heart rates at the time of discharge were anywhere between 63 and 96 bpm. She had been started on lisinopril and some diuretics however her blood pressures were on the soft side and therefore the lisinopril and Lasix 20 mg were discontinued prior to discharge. I also decrease her beta-tee from 25 mg p.o. twice daily to 12.5 mg p.o. twice daily. Thoracentesis was performed on 10/10/2022 and 350 cc of fluid was removed at that time. The patient had fortunately been able to be weaned to room air prior to the thoracentesis being performed. Ambulatory pulse ox was assessed and she was 95% on room air with ambulation and 97% at rest. Overall the patient was feeling much better and anxious to go home. I discharge her with prescriptions for metoprolol 12.5 mg twice daily, amiodarone 200 mg daily, digoxin 125 mg daily, atorvastatin 40 mg daily, and Eliquis 5 mg p.o. twice daily.'s were faxed to her pharmacy prior to discharge. We did hold off on discharging her with Lasix but I did instruct her to call the cardiology office if she developed any worsening shortness of breath the potentially resume Lasix. She is to follow-up with pulmonology and cardiology as scheduled prior to discharge. I have asked her to also follow-up with her primary care physician in the next 2 weeks. She was discharged home in stable condition on 10/10/2022. Discharge diagnoses: Atrial fibrillation with RVR-rate controlled NSTEMI type II secondary to atrial fibrillation Nonobstructive CAD Takotsubo cardiomyopathy Left pleural effusion status postthoracentesis-resolved Hypoxia-resolved Hypokalemia-resolved Weight / BMI Weight Weight: 48.1 kg Body Mass Index (BMI) 20.7 ABG / Lab / Microbiology Data Result Diagrams: 10/10/22 05:32 10/10/22 05:32 Laboratory: Laboratory Results - last 24 hr 10/10/22 05:32: WBC 5.1, RBC 4.28, Hgb 12.7, Hct 39.8, MCV 93.0, MCH 29.7, MCHC 31.9 L, RDW Std Deviation 43.3, RDW Coeff of Madhu 12.7, Plt Count 245, MPV 10.9, Immature Gran % (Auto) 0.200, Neut % (Auto) 65.1, Lymph % (Auto) 19.0, [place] % (Auto) 13.1 H, Eos % (Auto) 1.8, Baso % (Auto) 0.8, Absolute Neuts (auto) 3.3, Absolute Lymphs (auto) 0.96, Nucleated RBC % 0 10/10/22 05:32: Sodium 140, Potassium 3.9, Chloride 106, Carbon Dioxide 26.0, Anion Gap 8, BUN 24 H, Creatinine 0.83, Estim Creat Clear Calc 44.01, Est GFR (MDRD) Af Amer 87, Est GFR (MDRD) Non-Af 72, BUN/Creatinine Ratio 29.0 H, Glucose 97, Calcium 8.7 10/10/22 13:30: Fluid Source THORACENTESIS, Fluid Color LT YEL, Fluid Appearance CLEAR, Fluid WBC 0.386, Fluid Tot Cell Count 0.487 H, Fld Polynuclear WBCs # 0.132, Fld Polynuclear WBCs % 34.2, Fluid Mononuclear WBCs 0.254, Fld Mononuclear WBCs % 65.8, Fl Pathologist Comment May follow, Fluid Comment 2 SEE COMMENT Microbiology: Microbiology 10/05/22 22:50 Nasal Secretion SARS-CoV-2 & FLU Antigen (Rapid) - Final Radiography Diagnostic Testing: Radiology Impression Chest X-Ray 10/10/22 05:55 IMPRESSION: Persistent left lower lobe infiltration and small left pleural effusion. There has been improvement as compared to prior study. Electronically Signed: Geoffrey Sánchez MD at 11:24 EST , Thoracentesis Ultrasound 10/10/22 07:00 IMPRESSION: Ultrasound-guided left thoracentesis. Electronically Signed: Geoffrey Sánchez MD at 14:08 EST , Chest X-Ray 10/10/22 13:45 IMPRESSION: Status post left thoracentesis. No evidence of pneumothorax. Electronically Signed: Geoffrey Sánchez MD at 14:00 EST , D/C Instructions Discharge Diet: 8 Cup Fluid Restriction and 2000 mg Sodium Diet Discharge Activity: Return to Normal Activity (Normal activity as tolerated with slow progression) Meaningful Use Info Meaningful Use Diagnoses (Choose all that apply): None applicable Discharge Plan Admission Admit Date/Time: 10/06/22 08:17 Primary Reason for Your Visit: Chest Pain Attending Provider: Penelope Jenkins Primary Care Provider: Emiliano Ureña Consulting Providers: Chuyita Guaman ; Betsy Souza ; Arie Stratton ; Johnny Aburto ; Gregory Lewis ; Kali Mustafa ; Caron Fink NP ; Lamonte Roman Instructions Patient Instructions: JUAN J RN Thoracentesis Dc Discharge Orders/Prescriptions Prescriptions: New amiodarone 200 mg Tablet 200 mg PO DAILY Qty: 30 1RF Eliquis 5 mg Tablet 5 mg PO BID Qty: 60 1RF atorvastatin 40 mg Tablet 40 mg PO QHS Qty: 30 1RF digoxin 125 mcg (0.125 mg) Tablet 125 mcg PO DAILY Qty: 30 1RF metoprolol tartrate 25 mg Tablet 12.5 mg PO BID Qty: 30 1RF Referrals / Follow Up: Luis Perez MD [Med Staff - Active Staff] - Within 2 Weeks Caron Fink NP, CARDIAC SPECIALIST-C [Med Staff - Adv Practice Prof] - Within 2 Weeks Emiliano Ureña MD [Primary Care Provider] - Within 2 Weeks Disposition Disposition (needs filled in before D/C Order can be placed): Home, Self Care Charges/Coding Visit Charges Inpatient E&M: 26405 Disch Hosp >30min
--- NOTE | 2022-10-10 15:11 | CHAPLAIN ---
Type of Pastoral Visit _x__ Initial Visit ___ Follow-up Visit ___ On-call Visit ___ General Patient Visit ___ Spiritual Assessment ___ Family Conference ___ Bereavement ___ Rapid Response ___ Code Blue ___ Other (describe below) Pastoral Care Referral From _x__ Patient ___ Family ___ Nurse ___ Physician ___ Sewage Treatment Plant Operator ___ Family Partner ___ Other (describe below) Sacrament/Intervention _x__ Active listening ___ Anointing ___ Yazdanism ___ Bereavement ___ Communion _x__ Tanja exploration ___ _x__ Life review _x__ Prayer ___ Reconciliation ___ Sacrament of Sick _x__ Supportive presence ___ Wedding ___ Other (describe below) Pastoral Comments patient talks about life and about her son and father as much as herself; pt gives some life review and her current habits of tanja; pt open to conversation and welcomes a prayer
[2022-10-10 15:17] LABS: Red Cell Count/Body Fluid 27 /mm3
[2022-10-10 15:46] LABS: Lymphocytes 25 %; Macrophages 32 %; Mesothelial Cells 4 %; Monocytes 8 %; Neutrophil (Segs) 31 %
[2022-10-10 15:47] LABS: Body Fluid QC Type(s) BF1Q,BF2Q
[2022-10-10 16:09] LABS: Glucose, Body Fluid 116 mg/dL (40-70); LDH,Body Fluid 90 Units/l (Not Establ.); Protein, Body Fluid 2.5 g/dL (Not Establ.)
[2022-10-11 14:50] LABS: Pathologist Comment/Body Fluid Reviewed
[2022-10-12 20:34] LABS: pH, Body Fluid 11254 7.2 (Not Estab.)
== END 2022-10-10 16:37 | disposition home or self-care (01) | DRG 280 ==
LOC: ED 20:53 → PCU 22:01
PROVIDERS: Internal Medicine; Internal Medicine Critical Care Medicine; Admitting Provider Internal Medicine; Emergency Provider Emergency Medicine; Visit Provider Internal Medicine
DX: I48.91 Unspecified atrial fibrillation (principal); I21.A1 Myocardial infarction type 2; I50.33 Acute on chronic diastolic (congestive) heart failure; I51.81 Takotsubo syndrome; J90 Pleural effusion, not elsewhere classified; I48.92 Unspecified atrial flutter; I25.10 Atherosclerotic heart disease of native coronary artery without angina pectoris; F41.9 Anxiety disorder, unspecified; K59.00 Constipation, unspecified; E87.6 Hypokalemia; Z87.891 Personal history of nicotine dependence; Z79.82 Long term (current) use of aspirin; I49.3 Ventricular premature depolarization; R09.02 Hypoxemia; Z85.3 Personal history of malignant neoplasm of breast
CPT/HCPCS: 32555; 36415; 51702; 70450; 71045; 71046; 71275; 74174; 80048; 80053; 80061; 81002; 82803; 82945; 83605; 83615; 83735; 83880; 83986; 84100; 84157; 84443; 84484; 85025; 85379; 87070; 87075; 87205; 87428; 88108; 88305; 88313; 89050; 93005; 93306; 93458; 99152; 99285; J7030; J7040; Q9967; A4216; C1769; C1894; J1940; J2405

== ENCOUNTER → 2022-11-01 | Outpatient (CLI) | payer MEDICARE, OTHER, SELFPAY ==
[2022-11-01 15:29] LABS: ALB/GLOB Ratio 1.1 RATIO (0.9-2.4); AST(SGOT) 28 U/L (15-37); Alanine Aminotransfer ALT/SGPT 31 U/L (13-56); Albumin, Serum 3.6 g/dL (3.2-5.0); Alkaline Phosphatase 113 U/L (45-117); Anion Gap 5 (5-15); BUN 17 mg/dL (7-18); BUN/Creat Ratio 15.9 RATIO (10-20); Calcium,Total 9.4 mg/dL (8.5-10.1); Chloride 105 mmol/L (98-107); Creatinine, Serum 1.07 mg/dL (0.55-1.02); EST Glomerular Filtration Rate 54 mL/min (>60); Est Glom Filt Rate - Afr Amer 65 mL/min (>60); Globulin 3.2 g/dL (2.2-4.2); Glucose 83 mg/dL (74-106); Potassium 4.4 mmol/L (3.5-5.1); Protein, Total 6.8 g/dL (6.4-8.2); Sodium Level 140 mmol/L (136-145)
[2022-11-01 15:43] LABS: Digoxin Level 1.78 ng/mL (0.80-2.00)
== END | disposition home or self-care (01) ==
LOC: LAB 13:45
PROVIDERS: Referring Provider Internal Medicine Cardiovascular Disease; Visit Provider Internal Medicine Cardiovascular Disease
DX: R11.0 Nausea (principal); I42.8 Other cardiomyopathies; I48.91 Unspecified atrial fibrillation; R78.89 Finding of other specified substances, not normally found in blood
CPT/HCPCS: 36415; 80053; 80162

== ENCOUNTER → 2022-12-14 | Outpatient (CLI) | payer MEDICARE, OTHER, SELFPAY ==
--- NOTE | 2022-12-14 07:08 | CT_ITS ---
STUDY: CT CHEST WITH CONTRAST REASON FOR EXAM: Female, 72 years old. LEFT VOCAL CORD PARALYSIS RADIATION DOSAGE (If Supplied By Facility): CTDIvol = ( 9.01 ) mGy, DLP = ( 406.35 ) mGycm TECHNIQUE: Transaxial imaging was performed following intravenous administration of IV 100mL Isovue-370. Multiplanar coronal and sagittal images were reformatted. Individualized dose optimization techniques were used for this CT. COMPARISON: Comparison is made with prior chest radiograph dated October 10, 2022. FINDINGS: CHEST Surgical clips are seen in the left axillary region. The central scarring and bronchiectasis in the lateral aspect of the left upper lobe. There is no demonstrated pleural abnormality. Normal heart and pericardium. No coronary artery calcification is seen. Normal mediastinum. Normal hilar regions. Normal unenhanced pulmonary arteries. Normal aorta arch and descending thoracic aorta. There are degenerative changes of the thoracic spine. Increased kyphosis. There is no demonstrated abnormality of the visualized upper abdomen. CT/Chest WITH Contrast IMPRESSION: Scarring and bronchiectasis in the upper lateral aspect of the left lung apex. Electronically Signed: Geoffrey Sánchez MD at 13:44 EDT ,
--- NOTE | 2022-12-14 07:08 | CT_ITS ---
STUDY: CT SOFT TISSUE NECK WITH CONTRAST REASON FOR EXAM: Female, 72 years old. LEFT VOCAL CORD PARALYSIS RADIATION DOSAGE (If Supplied By Facility): CTDIvol = ( 9.01 ) mGy, DLP = ( 406.35 ) mGycm TECHNIQUE: The patient was scanned in a multi-detector CT scanner. High resolution transaxial imaging was performed following intravenous administration of IV 100mL Isovue-370. Sagittal and coronal images were reconstructed. Individualized dose optimization techniques were used for this CT. COMPARISON: None. FINDINGS: Normal bilateral parotid glands. Normal bilateral billposting supervisor spaces. Normal bilateral parapharyngeal spaces. Normal bilateral carotid spaces. Normal bilateral sublingual and submandibular glands and spaces. Normal visualized nasopharynx. Normal retropharyngeal space. Normal perivertebral space. Normal visualized bilateral faucial tonsils. The visualized tongue, tongue base and oropharynx are normal. The visualized cervical lymph nodes (levels I-) are within normal size limits, and maintain normal morphology. There is no demonstrated solid or cystic mass lesion. There is no abnormal contrast enhancement. Normal epiglottis, bilateral vallecula and hypopharynx. The pre-epiglottic and paraglottic adipose spaces are normal. Evidence of the left vocal cord paralysis. Normal subglottic trachea. Normal bilateral lobes of the thyroid gland. Normal visualized pulmonary apices. Partial opacification of a hypoplastic right sphenoid sinus. There is multilevel degenerative changes of the cervical spine. There is evidence of scarring and bronchiectasis in the lateral apical region of the left lung. CT/Soft Tissue Neck WITH Contrast IMPRESSION: Findings in keeping with left vocal cord paralysis. Electronically Signed: Geoffrey Sánchez MD at 13:40 EDT ,
[2022-12-14 07:35] LABS: CREATININE FINGERSTICK < 0.9 mg/dL (0.55-1.02); EGFR FINGERSTICK > 60.0000 mL/min (>60)
[2022-12-14 08:51] LABS: Anion Gap 2 (5-15); BUN 17 mg/dL (7-18); BUN/Creat Ratio 20.2 RATIO (10-20); Calcium,Total 8.6 mg/dL (8.5-10.1); Chloride 106 mmol/L (98-107); Creatinine, Serum 0.84 mg/dL (0.55-1.02); EST Glomerular Filtration Rate 70 mL/min (>60); Est Glom Filt Rate - Afr Amer 85 mL/min (>60); Glucose 79 mg/dL (74-106); Potassium 4.4 mmol/L (3.5-5.1); Sodium Level 134 mmol/L (136-145)
== END | disposition home or self-care (01) ==
PROVIDERS: Internal Medicine Cardiovascular Disease; PCP Family Medicine; Referring Provider Otolaryngology; Visit Provider Otolaryngology
DX: J38.01 Paralysis of vocal cords and larynx, unilateral (principal); Z85.3 Personal history of malignant neoplasm of breast
CPT/HCPCS: 36415; 70491; 71260; 80048; Q9967

== ENCOUNTER → 2024-01-29 | Outpatient (CLI) | payer MEDICARE, OTHER, SELFPAY ==
--- NOTE | 2024-01-29 08:52 | ECHOD_ITS ---
Reason For Study: AFIB Procedure This was a 2D Doppler, Color Flow transthoracic echocardiogram. Exam performed in department. Left Ventricle Normal size and thickness. The left ventricular ejection fraction is 55 %. Normal diastology for age. Right Ventricle Normal right ventricle. Atria The left atrium is mildly enlarged. Normal right atrium. Mitral Valve There is Mild focal posterior mitral annular calcification. Mild (1+) mitral valve insufficiency. Tricuspid Valve Trivial tricuspid valve insufficiency. Unable to estimate RV systolic pressure due to insufficient tricuspid regurgitant envelope. Aortic Valve Trisinus/trileaflet aortic valve. Pulmonic Valve The pulmonic valve is not well visualized. Mild (1+) pulmonic valve insufficiency. Great Vessels The aortic root is not well visualized. Pericardium/Pleural No pericardial effusion. MMode/2D Measurements & Calculations LVIDd: 4.4 cm IVSd: 0.75 cm LAV(MOD-bp): 22.3 ml LVIDs: 3.6 cm LVPWd: 0.95 cm LAV(MOD-bp) Indexed: 16.0 ml/m2 RVDd: 2.9 cm FS: 16.9 % LAV(MOD-sp2): 21.7 ml LAV(MOD-sp4): 24.8 ml SV(MOD-sp4): 26.8 ml SV(sp4-el): 27.1 ml LVAd ap4: 18.3 cm2 LVLd ap4: 5.8 cm EDV(MOD-sp4): 48.7 ml EDV(sp4-el): 49.0 ml LVAs ap4: 11.0 cm2 LVLs ap4: 4.7 cm ESV(MOD-sp4): 21.9 ml ESV(sp4-el): 22.0 ml EF(MOD-sp4): 55.0 % EF(sp4-el): 55.2 % LA A4 area: 12.0 cm2 LA dimension(2D): 3.1 cm RA A4 area: 10.0 cm2 TAPSE: 1.9 cm Time Measurements MV dec time: 0.18 sec Doppler Measurements & Calculations MV E max jimmie: 72.5 cm/sec Lat Peak E' Jimmie: 7.3 cm/sec Med Peak E' Jimmie: 6.9 cm/sec MV A max jimmie: 68.7 cm/sec E/E' lat: 9.9 E/E' med: 10.4 MV E/A: 1.1 MV V2 max: 78.9 cm/sec Ao V2 max: 134.7 cm/sec MV max P.5 mmHg MV dec slope: 394.7 cm/sec2 Ao max P.3 mmHg MV V2 mean: 45.4 cm/sec Ao V2 mean: 86.4 cm/sec MV mean P.99 mmHg Ao mean P.5 mmHg MV V2 VTI: 31.9 cm Ao V2 VTI: 34.2 cm AV (velocity ratio): 0.80 LV V1 max: 108.0 cm/sec PA V2 max: 101.6 cm/sec LV V1 max P.7 mmHg PA V2 mean: 70.0 cm/sec LV V1 mean P.5 mmHg LV V1 mean: 73.8 cm/sec LV V1 VTI: 27.3 cm ECHO/Echo Complete Interpretation Summary The left ventricular ejection fraction is 55 %. The left atrium is mildly enlarged. Mild (1+) mitral valve insufficiency. There is Mild focal posterior mitral annular calcification. Mild (1+) pulmonic valve insufficiency. Ordering Physician: Betsy Souza Referring Physician: Betsy Souza Performed By: Dorothy Arias RCS
[2024-01-29 10:02] LABS: ALB/GLOB Ratio 1.3 RATIO (0.9-2.4); AST(SGOT) 61 U/L (15-37); Alanine Aminotransfer ALT/SGPT 64 U/L (13-56); Albumin, Serum 3.9 g/dL (3.2-5.0); Alkaline Phosphatase 95 U/L (45-117); Anion Gap 6 (5-15); BUN 19 mg/dL (7-18); BUN/Creat Ratio 20.9 RATIO (10-20); Bilirubin, Direct 0.17 mg/dL (0.00-0.30); CPK Total, Creatine Kinase 56 U/L (26-192); Calcium,Total 9.1 mg/dL (8.5-10.1); Chloride 109 mmol/L (98-107); Cholesterol 182 mg/dL (200); Creatinine, Serum 0.91 mg/dL (0.55-1.02); EST Glomerular Filtration Rate 64 mL/min (>60); Est Glom Filt Rate - Afr Amer 78 mL/min (>60); Glucose 89 mg/dL (74-106); High Density Lipoprotein 84 mg/dL; Potassium 3.9 mmol/L (3.5-5.1); Protein, Total 6.9 g/dL (6.4-8.2); Sodium Level 139 mmol/L (136-145); Triglycerides 118 mg/dL; Very Low Density Lipoprotein 24 mg/dL (5-40)
== END | disposition home or self-care (01) ==
LOC: CVS 08:43
PROVIDERS: PCP Family Medicine; Referring Provider Internal Medicine Cardiovascular Disease; Visit Provider Internal Medicine Cardiovascular Disease
DX: I42.8 Other cardiomyopathies (principal); I48.91 Unspecified atrial fibrillation; E78.5 Hyperlipidemia, unspecified; R49.0 Dysphonia; I25.10 Atherosclerotic heart disease of native coronary artery without angina pectoris
CPT/HCPCS: 36415; 80053; 80061; 82248; 82550; 93306

== ENCOUNTER → 2024-07-02 | Outpatient (CLI) | payer MEDICARE, OTHER, SELFPAY ==
[2024-07-02 11:12] LABS: ALB/GLOB Ratio 1.2 RATIO (0.9-2.4); AST(SGOT) 46 U/L (15-37); Alanine Aminotransfer ALT/SGPT 47 U/L (13-56); Albumin, Serum 3.6 g/dL (3.2-5.0); Alkaline Phosphatase 86 U/L (45-117); Anion Gap 2 (5-15); BUN 20 mg/dL (7-18); BUN/Creat Ratio 21.5 RATIO (10-20); Calcium,Total 9.4 mg/dL (8.5-10.1); Chloride 107 mmol/L (98-107); Cholesterol 184 mg/dL (200); Creatinine, Serum 0.93 mg/dL (0.55-1.02); EST Glomerular Filtration Rate 62 mL/min (>60); Est Glom Filt Rate - Afr Amer 76 mL/min (>60); Globulin 2.9 g/dL (2.2-4.2); Glucose 84 mg/dL (74-106); High Density Lipoprotein 101 mg/dL; Potassium 4.5 mmol/L (3.5-5.1); Protein, Total 6.5 g/dL (6.4-8.2); Sodium Level 140 mmol/L (136-145); Triglycerides 82 mg/dL; Very Low Density Lipoprotein 16 mg/dL (5-40)
== END | disposition home or self-care (01) ==
LOC: LAB 09:53
PROVIDERS: PCP Family Medicine; Referring Provider Internal Medicine Cardiovascular Disease; Visit Provider Internal Medicine Cardiovascular Disease
DX: E78.5 Hyperlipidemia, unspecified (principal); I42.8 Other cardiomyopathies; I25.2 Old myocardial infarction
CPT/HCPCS: 36415; 80053; 80061

== ENCOUNTER → 2025-07-18 | Outpatient (CLI) | payer MEDICARE, OTHER, SELFPAY ==
--- NOTE | 2025-07-18 09:48 | ECHOD_ITS ---
Reason For Study Reason For Study: PALPITATIONS Procedure This was a 2D Doppler, Color Flow transthoracic echocardiogram. Myocardial strain analysis was performed in this exam to aid in the assessment of cardiac function. Exam performed in department. Left Ventricle Normal left ventricular thickness. Apical false tendon noted. The global longitudinal strain = -17.3 % (normal). Mild generalized LV hypokinesis. Estimated LVEF 45%. Stage I diastolic dysfunction. Right Ventricle Normal right ventricle. Atria The left atrium is mildly enlarged. Mitral Valve Mild (1+) mitral valve insufficiency. Tricuspid Valve Trivial tricuspid valve insufficiency. Unable to estimate RV systolic pressure due to insufficient tricuspid regurgitant envelope. Aortic Valve Trisinus/trileaflet aortic valve. Trivial aortic valve insufficiency. Pulmonic Valve The pulmonic valve is not well visualized. Mild (1+) pulmonic valve insufficiency. Great Vessels Normal sized aortic root. Pericardium/Pleural No pericardial effusion. MMode/2D Measurements & Calculations LVIDd: 4.6 cm IVSd: 0.72 cm LVOT diam: 1.9 cm LVIDs: 3.2 cm LVPWd: 0.62 cm LVOT area: 2.7 cm2 RVDd: 2.8 cm FS: 29.0 % Ao root diam: 2.4 cm asc Aorta Diam: 2.9 cm LAV(MOD- bp): 27.4 ml LAV(MOD- bp) Indexed: 19.9 ml/m2 LAV(MOD- sp2): 29.5 ml LAV(MOD- sp4): 20.6 ml SV(MOD- sp4): 15.0 ml LVAd ap4: 13.6 cm2 LVAd ap2: 15.9 cm2 LVLd ap4: 5.0 cm LVLd ap2: 5.4 cm SI(MOD- sp4): 10.9 ml/m2 EDV(MOD-sp4): 31.1 ml EDV(MOD-sp2): 40.5 ml EDV(sp4-el): 31.5 ml EDV(sp2-el): 40.1 ml LVAs ap4: 9.4 cm2 LVAs ap2: 10.5 cm2 LVLs ap4: 4.6 cm LVLs ap2: 4.9 cm ESV(MOD-sp4): 16.1 ml ESV(MOD-sp2): 19.7 ml ESV(sp4-el): 16.2 ml ESV(sp2-el): 19.4 ml EF(MOD-sp4): 48.3 % EF(MOD-sp2): 51.4 % EF(sp4-el): 48.5 % SV(MOD-sp2): 20.8 ml SV(sp4-el): 15.3 ml Ao sinus diam: 2.6 cm SI(MOD-sp2): 15.1 ml/m2 Ao ST Junction: 2.0 cm LA dimension(2D): 2.5 cm LA A4 area: 10.6 cm2 TAPSE: 1.6 cm RA A4 area: 6.7 cm2 Time Measurements MV dec time: 0.18 sec Doppler Measurements & Calculations MV E max jimmie: 79.6 cm/sec Lat Peak E' Jimmie: 9.9 cm/sec Med Peak E' Jimmie: 8.3 cm/sec MV A max jimmie: 77.0 cm/sec E/E' lat: 8.0 E/E' med: 9.6 MV E/A: 1.0 MV dec slope: 435.3 cm/sec2 Ao V2 max: 117.0 cm/sec LV V1 max: 82.0 cm/sec Ao max P.5 mmHg LV V1 max P.7 mmHg Ao V2 mean: 83.0 cm/sec LV V1 mean P.8 mmHg Ao mean P.0 mmHg LV V1 mean: 66.1 cm/sec Ao V2 VTI: 26.8 cm LV V1 VTI: 18.9 cm AV (velocity ratio): 0.70 ROBERTO(I,D): 1.9 cm2 ROBERTO(V,D): 1.9 cm2 SV(LVOT): 50.9 ml PA V2 max: 69.8 cm/sec PI end-d jimmie: 65.0 cm/sec ECHO/Echo Complete Interpretation Summary Mild generalized LV hypokinesis. Estimated LVEF 45%. Stage I diastolic dysfunction. The left atrium is mildly enlarged. Mild (1+) mitral valve insufficiency. Mild (1+) pulmonic valve insufficiency. Ordering Physician: Betsy Souza Referring Physician: Betsy Souza MD Performed By: Pastora Chaney RDCS
--- OUTSIDE RECORDS SUMMARY | 2025-07-18 09:51 | XMS RPT_ITS | CCD ---
Author Organization [facility] Care Team Providers Care Director Drug Safety Name Role Phone JASENSONYA INGRAM Unavailable Unavailable DR AURELIANO UREÑA DO A Primary Care Physician MD Aureliano Goins Primary Care Provider Unava Dr. Lucas Riley Emergency Provider Dr. Chuyita Guaman Attending Provider Dr. Chuyita Guaman Admit Provider Dr. Chuyita Guaman Other Provider Dr. Lamonte Roman Attending Provider Dr. Lamonte Roman Other Provider Dr. Betsy Souza Attending Provider Dr. Betsy Souza Other Provider Dr. Arie Stratton Other Provider Dr. Gregory Lewis Other Provider Dr. Johnny Aburto Other Provider Danae LINOLEUM MECHANIC, LINOLEUM MECHANIC-C Caron Other Provider Dr. Kali Mustafa Other Provider Unavailab Dr. Arie Menon Attending Provider Dr. Penelope Jenkins Referring Provider Dr. Penelope Jenkins Other Provider Dr. Penelope Jenkins Attending Provider Dr. Johnny Aburto Attending Provider MD Aureliano Goins Referring Provider Unavaila edna Fink LINOLEUM MECHANIC, LINOLEUM MECHANIC-C Caron Attending Provider Josefa Ball Attending Provider Unavailable Niranjan, Dr. Cummings Primary Care Provider ROCK BERMEO, ELI Attending Unavailabl e NIRANJAN DO, DR AURELIANO Wu Primary Care Unavailabl e TANISHA SEQUIVEL, DEEP Danielle Attending Unavailable NIRANJAN DO, DR AURELIANO Wu Primary Care Unavailabl e NIRANJAN DO, DR AURELIANO Wu Attending Unavailabl e NIRANJAN DO, DR AURELIANO Wu Primary Care Unavailabl e AISHA [facility], ANA Martin Attending Unavai lable NIRANJAN DO, DR AURELIANO Wu Primary Care Unavailabl e Niranjan DO, Dr. Cummings Primary Care Physician Niranjan DO, Dr. Cummings Referring Provider Harley ESQUIVEL, Dr. Meyer Attending Physician Harley, Betsy Attending Unavailable Niranjan, Aureliano Primary Care Unavailable Niranjan, Aureliano Referring Unavailable Harley, Betsy Attending Unavailable Niranjan, Aureliano Referring Unavailable Niranjan, Aureliano Primary Care Unavailable Harley, Betsy Attending Unavailable Niranjan, Aureliano Primary Care Unavailable Harley, Betsy Referring Unavailable Harley, Betsy Attending Unavailable Niranjan, Aureliano Primary Care Unavailable Niranjan, Aureliano Referring Unavailable Allergies Allergy Classification Reported Allergen(s) Allergy Type Date of Onset Reaction(s) Facility (7 sources) Codeine; Translations: [codeine] Drug Allergy 3 Swelling (finding) [facility] (2 sources) Acetaminophen Drug Allergy 3 Other [facility] (3 sources) Propoxyphene Drug Allergy 3 [facility] (1 source) Codeine Drug Allergy 5 [facility] (1 source) Propoxyphene Drug Allergy 5 [facility] Medications Current Medications Medication Drug Class(es) Dates Sig (Normalized) Sig (Original) amoxicillin 500 mg oral tablet (1 source) Penicillin-class Antibacterial Start: 09-08-2021 End: 09-15-2021 amoxicillin 500 mg oral tablet Dose : 500 mg = 1 tab(s), Oral, BID, X 7 day(s), # 14 tab(s), 0 Refill(s), 09/15/21 11:08:00 EST, Pharmacy: [facility]/pharmacy #[id number], 152.4, cm, 05/04/20 13:09:00 EDT, Height, kg, 05/04/20 13:09:00 EDT, Dosing Weight Start Date: 09/08/21 Stop Date: 09/15/21 Status: Ordered apixaban 5 mg oral tablet (10 sources) Factor Xa Inhibitor Start: 10-10-2022 End: 02-24-2025 take 1 tablet by mouth twice daily Apixaban (Eliquis) 5 mg tablet Active 5 mg PO TWICE A DAY 180 3 February 24, 2025 7:47am Complies with drug therapy atorvastatin 40 mg oral tablet (11 sources) HMG-CoA Reductase Inhibitor Start: 10-10-2022 End: 05-20-2025 take 1 tablet by mouth at bedtime Atorvastatin 40 mg tablet Active 40 mg PO AT BEDTIME 90 May 20, 2025 4:28pm Complies with drug therapy biotin 2.5 mg oral capsule (6 sources) Start: 12-12-2022 take 1 capsule by mouth once daily Biotin 2,500 mcg capsule Active 2500 ug PO DAILY December 12, 2022 12:00am SUPPLEMENT Complies with drug therapy Start: 05-04-2020 biotin 10 mg o ral tablet Dose : 10 mg = 1 tab(s), Oral, qDay, # 30 tab(s), 0 Refill(s) Start Date: 05/04/20 Status: Ordered cholecalciferol 0.05 mg oral tablet (3 sources) Vitamin D Start: 12-20-2023 take 1 tablet by mouth once daily Cholecalciferol (Vitamin D3) 50 mcg (2,000 unit) tablet Active 50 ug PO DAILY December 20, 2023 10:52am SUPPLEMENT Complies with drug therapy Start: 12-12-2022 End: 12-20-2023 take 1 tablet by mouth once daily Cholecalciferol (Vitamin D3) 50 mcg (2,000 unit) tablet Discontinued 150 ug PO DAILY December 12, 2022 12:00am December 20, 2023 10:53am SUPPLEMENT Cranberry Fruit (6 sources) Non-Standardized Food Allergenic Extract, Non-Standardized Plant Allergenic Extract Start: 12-12-2022 take 1 capsule by mouth once daily Cranberry Fruit 400 mg capsule Active 400 mg PO DAILY December 12, 2022 12:00am administer with a meal Complies with drug therapy Start: 12-12-2022 take 400 mg by mouth once adela y Cranberry Active 400 MG PO DAILY December 12, 2022 12:00am administer with a meal Start: 09-08-2021 take 1 capsule by mo ut once daily cranberry oral capsule Dose = 1 cap(s), Oral, Daily, 0 Refill(s) Start Date: 09/08/21 Status: Ordered diphenhydrAMINE hydrochloride 50 mg oral capsule (4 sources) Histamine-1 Receptor Antagonist Start: 01-30-2023 take 1 capsule by mouth at bedtime Diphenhydramine Hcl (Unisom Sleepgels) 50 mg Capsule Active 50 mg PO AT BEDTIME January 30, 2023 12:00am Complies with drug therapy Start: 05-04-2020 Unisom 25mg or al tablet Dose : 25 mg = 1 tab(s), Oral, qHS, PRN as needed for insomnia, # 30 tab(s), 0 Refill(s) Start Date: 05/04/20 Status: Ordered docusate sodium 100 mg oral capsule (4 sources) Start: 12-18-2024 take 1 capsule by mouth once daily as needed Docusate Sodium (Dulcolax Stool Softener (Dss)) 100 mg capsule Active 100 mg PO daily as needed December 18, 2024 12:00am Complies with drug therapy Start: 09-29-2021 take 1 dose by mouth once daily at bedtime Dulcolax Stool Softener Dose : 100 mg =, Oral, qHS, 0 Refill(s) Start Date: 09/29/21 Status: Ordered empagliflozin 10 mg oral tablet (8 sources) Sodium-Glucose Cotransporter 2 Inhibitor Start: 12-12-2022 End: 02-19-2025 take 1 tablet by mouth once daily Empagliflozin (Jardiance) 10 mg tablet Active 10 mg PO DAILY February 19, 2025 12:46pm Complies with drug therapy lisinopril 2.5 mg oral tablet (10 sources) Angiotensin Converting Enzyme Inhibitor Start: 11-01-2022 End: 05-20-2025 take 1 tablet by mouth once daily Lisinopril 2.5 mg tablet Active 2.5 mg PO DAILY 90 May 20, 2025 4:28pm for blood pressure Complies with drug therapy Lopressor 25mg--USE metoprolol tartrate 25 mg oral tablet (2 sources) Start: 10-19-2022 Lopressor 25mg--USE metoprolol tartrate 25 mg oral tablet Dose : 12.5 mg = 0.5 tab(s), Oral, BID, 0 Refill(s) Start Date: 10/19/22 Status: Ordered melatonin 10 mg oral tablet (6 sources) Start: 12-12-2022 take 2 tablets by mouth at bedtime as needed for sleep Melatonin 10 mg tablet Active 20 mg PO BEDTIME as needed for Sleep December 12, 2022 12:00am Complies with drug therapy Start: 12-12-2022 take 20 mg by mouth at bedtime Melatonin Active 20 MG PO BEDTIME December 12, 2022 12:00am Start: 05-04-2020 melatonin 10 m g oral capsule Dose : 10 mg = 1 cap(s), Oral, qHS, PRN for insomnia, # 90 cap(s), 0 Refill(s) Start Date: 05/04/20 Status: Ordered metoprolol tartrate 25 mg oral tablet (9 sources) beta-Adrenergic Antonietta Start: 10-10-2022 End: 02-19-2025 Metoprolol Tartrate 25 mg tablet Active 12.5 mg PO TWICE A DAY 90 February 19, 2025 12:46pm Complies with drug therapy Start: 10-10-2022 End: 12-07-2022 take 12.5 mg by mouth twice daily Metoprolol Tartrate Active 12.5 MG PO TWICE A DAY December 07, 2022 4:04pm nitrofurantoin, macrocrystals 100 mg oral capsule (1 source) Nitrofuran Antibacterial Start: 09-29-2021 End: 10-06-2021 nitrofurantoin macrocrystals 100 mg oral capsule Dose : 100 mg = 1 cap(s), Oral, BID, X 7 day(s), # 14 cap(s), 0 Refill(s), 10/06/21 13:45:00 EST, Pharmacy: [facility] Urinary tract infection, 154, cm, 09/29/21 13:13:00 EST, Height, 45.45, kg, 09/29/21 13:13:00 EST, Dosing Weight Start Date: 09/29/21 Stop Date: 10/06/21 Status: Ordered nitrofurantoin, macrocrystals 25 mg / nitrofurantoin, monohydrate 75 mg oral capsule (2 sources) Nitrofuran Antibacterial Start: 12-14-2023 End: 12-21-2023 nitrofurantoin macrocrystals-monohyd rate 100 mg oral capsule Dose : 100 mg = 1 cap(s), Oral, BID, Take with food, X 7 day(s), # 14 cap(s), 0 Refill(s), 12/21/23 11:18:00 AM EDT, Pharmacy: [facility] #[id number], UTI symptoms, 153, cm, 12/14/23 10:41:00 EDT, Height, 46.5, kg, 12/14/23 10:41:00 EDT, Dosing Weight Start Date: 12/14/23 Stop Date: 12/21/23 Status: Ordered Start: 03-29-2023 End: 04-05-2023 Macrobid 100 mg oral capsule Dose : 100 mg = 1 cap(s), Oral, BID, Take with food, X 7 day(s), # 14 cap(s), 0 Refill(s), 04/05/23 10:51:00 AM EDT, Pharmacy: [facility] #[id number], UTI (urinary tract infection), 153, cm, 03/29/23 10:32:00 EDT, Height, 45.1, kg, 03/29/23 10:32:00 EDT, Dosing Weight Start Date: 03/29/23 Stop Date: 04/05/23 Status: Ordered vitamin b12 0.05 mg oral tablet (2 sources) Vitamin B12 Start: 05-04-2020 Vitamin B12 50 mcg oral tablet Dose : 50 mcg = 1 tab(s), Oral, qDay, # 90 tab(s), 0 Refill(s) Start Date: 05/04/20 Status: Ordered Vitamin D3 (1 source) Start: 12-14-2023 take 1 dose by mouth once daily Vitamin D3 Dose : 2,000 mcg =, Oral, qDay, 0 Refill(s) Start Date: 12/14/23 Status: Ordered Completed/Discontinued Medications Medication Drug Class(es) Dates Sig (Normalized) Sig (Original) amiodarone hydrochloride 200 mg oral tablet (4 sources) Antiarrhythmic Start: 10-10-2022 End: 11-01-2022 take 1 tablet by mouth once daily Amiodarone 200 mg Tablet Discontinued 200 mg PO DAILY 30 October 10, 2022 1:00am November 01, 2022 1:26pm digoxin 0.125 mg oral tablet (10 sources) Cardiac Glycoside Start: 10-19-2022 digoxin 125 mcg (0.125 mg) oral tablet Dose : 125 mcg = 1 tab(s), Oral, qDay, 0 Refill(s) Start Date: 10/19/22 Status: Ordered Start: 10-10-2022 End: 07-01-2024 take 1 tablet by mouth once daily Digoxin 125 mcg (0.125 mg) tablet Discontinued 125 ug PO DAILY 90 February 28, 2024 3:54pm July 01, 2024 4:18pm HEART ondansetron 4 mg oral tablet (3 sources) Serotonin-3 Receptor Antagonist Start: 11-01-2022 End: 12-12-2022 take 1 tablet by mouth every six hours as needed for nausea and vomiting Ondansetron Hcl 4 mg tablet Discontinued 4 mg PO EVERY 6 HOURS as needed for nausea and vomiting November 01, 2022 12:00am December 12, 2022 1:01pm Problems Active Problems Problem Classification Problem Date Documented Da te Episodic/Chronic Acute myocardial infarction (3 sources) Myocardial infarction; Translations: [Non-ST elevation (NSTEMI) myocardial infarction] 10-18-2022 Chronic Cancer of breast (1 source) History of malignant neoplasm of breast 04-26-2023 Episodic Cardiac dysrhythmias (14 sources) Atrial fibrillation; Translations: [Unspecified atrial fibrillation] Onset: 05-21-2025 11-01-2022 Chronic Coronary atherosclerosis and other heart disease (12 sources) Coronary arteriosclerosis; Translations: [Atherosclerotic heart disease of craig coronary artery without angina pectoris] Onset: 05-21-2025 11-01-2022 Chronic Diabetes mellitus without complication (5 sources) Hyperglycemia; Translations: [Hyperglycemia, unspecified] 10-18-2022 Episodic Disorders of lipid metabolism (9 sources) Dyslipidemia; Translations: [Hyperlipidemia, unspecified] Onset: 05-21-2025 11-01-2022 Chronic Fluid and electrolyte disorders (5 sources) Hypokalemia; Translations: [Hypokalemia] 10-18-2022 Episodic Nausea and vomiting (5 sources) Nausea; Translations: [Nausea] 11-01-2022 Episodic Other lower respiratory disease (3 sources) Hypoxia; Translations: [Hypoxemia] 10-18-2022 Episodic Other lower respiratory disease (2 sources) Hypoxemia; Translations: [Hypoxemia] 10-10-2022 Episodic Other upper respiratory disease (2 sources) Hoarse; Translations: [Dysphonia] 11-17-2022 Episodic Other upper respiratory disease (1 source) Dysphonia; Translations: [Dysphonia] 11-17-2022 Episodic Sandra-; endo-; and myocarditis; cardiomyopathy (except that caused by tuberculosis or sexually transmitted disease) (13 sources) Cardiomyopathy; Translations: [Other cardiomyopathies] Onset: 05-21-2025 11-01-2022 Chronic Pleurisy; pneumothorax; pulmonary collapse (6 sources) Pleural effusion; Translations: [Pleural effusion, not elsewhere classified] 10-18-2022 Episodic Syncope (2 sources) Syncope and collapse; Translations: [Syncope and collapse] Onset: 03-03-2018 Episodic Urinary tract infections (3 sources) Urinary tract infectious disease 05-04-2020 Episodic Past or Other Problems Problem Classification Problem Date Documented Date Episodic/Chronic Genitourinary symptoms and ill-defined conditions (2 sources) Unspecified symptoms and signs involving the genitourinary system; Translations: [Unspecified symptoms and signs involving the genitourinary system] Onset: 03-06-2023 Episodic Residual codes; unclassified (2 sources) History of cardiac catheterization; Translations: [Other specified postprocedural states] Onset: 09-21-2022 11-30-2022 Episodic Comment on above: LEFT HEART ASSESSMEN TLeft Ventricular Ejection Fraction: by LV Gram 40 %; LVEDP: 20 mmHg; LEFT MAIN: Angiographically normal; LEFT ANTERIOR DESCENDING ARTERY: Angiographically normal; CIRCUMFLEX ARTERY: Angiographically normal; RIGHT CORONARY ARTERY: RCA: Luminal Irregularities 20% Mid lesion in RCA Tubular 30% Proximal lesion in RCA; CONCLUSIONS: Mild RCA diseaseNon-ischemic CMP, likely Takotsubo'sRECOMMENDATIONS: Medical therapy, Risk factor modification per cardiac cath Dr. Souza 10/06/22 Results Test Name Value Interpretation Reference Range Facility Cardiology Visit Reporton Cardiology Visit Report [facility] [address] [place], [place] [address] OFFICE VISIT Date of Service: 05/21/25 MR#: [id number] Acct: [id number] Name: ADAMA GONZALEZ Rep #: [id number] : 1950 Provider: Dr. Betsy Souza MD Age/Sex: 75/F Location: [facility] Status: Signed HPI HPI History of Present Illness Details: Adama has history of paroxysmal atrial fibrillation and nonischemic cardiomyopathy. She is here for follow-up visit. Denies any complaints. No chest pains. No shortness of breath. No lightheadedness or dizziness. No syncope or presyncope. No orthopnea or PND or ankle edema. She has rare palpitations. 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 Required: No Accompanied by: Self Is patient in pain?: No Allergies propoxyphene (From Darvocet-N) Allergy (Verified 05/21/25 13:22) Other codeine Adverse Reaction (Verified 05/21/25 13:22) Nausea Medications ???Medication ???Instructions ???Recorded ???Confirmed ???Type biotin 2,500 mcg capsule 2,500 mcg PO DAILY SUPPLEMENT 11/2005/21/25 History cranberry fruit 400 mg capsule 400 mg PO DAILY 12/12/22 05/21/25 History melatonin 10 mg tablet 20 mg PO HS PRN Sleep 12/12/2209/14 History diphenhydramine HCl 50 mg capsule 50 mg PO QHS 01/30/23 05/21/25 Hi story (Unisom SleepGels) cholecalciferol (vitamin D3) 50 50 mcg PO DAILY SUPPLEMENT 4 05/21/25 History mcg (2,000 unit) tablet docusate sodium 100 mg capsule 100 mg PO QDAY PRN 12/18/24 History (Dulcolax Stool Softener (docusate)) empagliflozin 10 mg tablet 10 mg PO DAILY #90 tabs 02/19/25 1 Rx (Jardiance) metoprolol tartrate 25 mg tablet 12.5 mg (1/2 x 25 mg) PO BID #90 0 02/19/25 05/21/25 Rx tabs apixaban 5 mg tablet (Eliquis) 5 mg PO BID #180 tabs 02/24/2509/14 Rx atorvastatin 40 mg tablet 40 mg PO QHS #90 tabs 05/20/2509/14 Rx lisinopril 2.5 mg tablet 2.5 mg PO DAILY for blood pressure 05/20/25 05/21/25 Rx #90 TABLETS Ejection fraction %: 55 Have you fallen in the past year?: No PFSH Medical History Atrial fibrillation Atrial fibrillation with RVR Cardiology follow-up encounter Coronary artery disease Dyslipidemia Former smoker Heartburn High cholesterol History of atrial fibrillation History of CHF (congestive heart failure) History of echocardiogram History of edema History of heart attack History of non-ST elevation myocardial infarction (NSTEMI) Hoarseness HX: breast cancer Hypoglycemia Leg cramps Nausea Non-ST elevation SD (NSTEMI) Nonischemic cardiomyopathy Syncope Wears glasses Surgical History History of 2 sections History of cardiac catheterization History of left heart catheterization (LHC) ( 10/06/22) History of mastectomy History of tonsillectomy Hx of section Hx of lumpectomy Hx of total mastectomy of left breast Family History Grandmother Myocardial infarction Father CVA (cerebral vascular accident) x2 Mother Heart disease Social History Smoking Status: Former smoker how long ago did patient quit smokin alcohol intake: former substance use type: does not use caffeine: Yes (occasionally) Type: coffee ROS Const Const: Negative for fatigue or weakness Eyes Eyes: Negative for change in vision ENT ENT: Negative for dizziness or balance problems Cardio Chest Pain: No Palpitations: Yes (occ fluttering) Edema: None Resp Respiratory: Negative for SOB with activity, SOB at rest or SOB orthopnea SOB lying down GI GI: Negative nausea or heartburn Musc Musc: Negative for balance problems Neuro Neuro: Negative for dizziness, lightheadedness, near syncope, syncope or weakness Endo Endo: Negative for fatigue Cardiology Exam Const Appearance: comfortable and no acute distress Nutritional Appearance: well nourished Neck Neck: no JVD Carotids: Negative bruit Chest Auscultation: Bilateral: Clear to Auscultation Cardio Rate: regular rate Rhythm: regular rhythm Heart sounds: S1 normal and S2 normal Neuro General: patient alert, patient awake and patient oriented x3 Extremities Lower Extremity Edema: None: Bilateral Supplemental Info Supplemental Information Labs: LDL Cholesterol, (0-130) 67 mg/dL HDL C (more content not included)... Normal [facility] Cardiology Visit Reporton Cardiology Visit Report [facility] [facility] [place] [address] OFFICE VISIT Date of Service: 12/18/24 MR#: [id number] Acct: [id number] Name: ADAMA GONZALEZ Rep #: [id number] : 1950 Provider: Dr. Betsy Souza MD Age/Sex: 74/F Location: [facility] Status: Signed HPI HPI History of Present Illness Details: This pleasant lady with history of atrial fibrillation and nonischemic cardiomyopathy with LVEF having since recovered, is here for routine follow-up visit. Denies any complaints today. No chest pains. No shortness of breath. No palpitations. No lightheadedness or dizziness. No orthopnea or PND. No ankle edema. Tolerating apixaban well and denies any abnormal bleeding. Intake Vital Signs 07/01/24 08:27 12/18/24 13:00 Height 5 ft 5 ft Weight: 101 lb 102 lb BMI 19.7 19.9 BP 117/67 97/58 L Blood Pressure Location Rt brachial Lt brachial Position Sitting Sitting Respiration 18 18 Pulse 55 L 71 Pulse Source NIBP NIBP Intake Visit Reasons: 6 M FU Waste Disposal Leakage Tester Required: No Accompanied by: Self Is patient in pain?: No Allergies propoxyphene (From Darvocet-N) Allergy (Verified 12/18/24 13:40) Other codeine Adverse Reaction (Verified 12/18/24 13:40) Nausea Medications ???Medication ???Instructions ???Recorded ???Confirmed ???Type biotin 2,500 mcg capsule 2,500 mcg PO DAILY SUPPLEMENT 11/2012/18/24 History cranberry fruit 400 mg capsule 400 mg PO DAILY 12/12/22 12/18/24 History melatonin 10 mg tablet 20 mg PO HS PRN Sleep 12/12/22 History diphenhydramine HCl 50 mg capsule 50 mg PO QHS 01/30/23 12/18/24 Hi story (Unisom SleepGels) cholecalciferol (vitamin D3) 50 50 mcg PO DAILY SUPPLEMENT 4 12/18/24 History mcg (2,000 unit) tablet apixaban 5 mg tablet (Eliquis) 5 mg PO BID #180 tabs 02/28/24 Rx empagliflozin 10 mg tablet 10 mg PO DAILY #90 tabs 02/28/24 0 12/18/24 Rx (Jardiance) metoprolol tartrate 25 mg tablet 12.5 mg (1/2 x 25 mg) PO BID #90 0 02/28/24 12/18/24 Rx tabs atorvastatin 40 mg tablet 40 mg PO QHS #90 tabs 02/29/24 Rx lisinopril 2.5 mg tablet 2.5 mg PO DAILY for blood pressure 02/29/24 12/18/24 Rx #90 TABLETS docusate sodium 100 mg capsule 100 mg PO QDAY PRN 12/18/24 History (Dulcolax Stool Softener (docusate)) Ejection fraction %: 55 Have you fallen in the past year?: No PFSH Medical History Atrial fibrillation Atrial fibrillation with RVR Cardiology follow-up encounter Coronary artery disease Dyslipidemia Former smoker Heartburn High cholesterol History of atrial fibrillation History of CHF (congestive heart failure) History of echocardiogram History of edema History of heart attack History of non-ST elevation myocardial infarction (NSTEMI) Hoarseness HX: breast cancer Hypoglycemia Leg cramps Nausea Non-ST elevation SD (NSTEMI) Nonischemic cardiomyopathy Syncope Wears glasses Surgical History History of 2 sections History of cardiac catheterization History of left heart catheterization (LHC) ( 10/06/22) History of mastectomy History of tonsillectomy Hx of section Hx of lumpectomy Hx of total mastectomy of left breast Family History Grandmother Myocardial infarction Father CVA (cerebral vascular accident) x2 Mother Heart disease Social History Smoking Status: Former smoker how long ago did patient quit smokin alcohol intake: former substance use type: does not use caffeine: Yes (occasionally) Type: coffee ROS Const Const: Negative for fatigue, weakness, headache(s) or weight gain Eyes Eyes: Negative for transient loss of vision ENT ENT: Positive for balance problems; Negative for headache(s), dizziness or Nosebleed/epistaxis Cardio Chest Pain: No Palpitations: Yes feels like its: thumping Edema: None Muscle aches with walking: None Resp Respiratory: Negative for SOB with activity, SOB at rest or SOB orthopnea SOB lying down GI GI: Negative nausea, vomiting or heartburn Musc Musc: Positive for balance problems; Negative for muscle aches/ myalgia, muscle weakness or joint pain Neuro Neuro: Positive for lightheadedness (chronic related to anxiety per pt; unchanged); Negative for dizziness, near syncope, syncope, headache(s) or weakness Endo Endo: Negative for fatigue Psych Psych: Positive for anxiety and depression Cardiology Exam Const Appearance: comfortable and no acute distress Nutritional Appearance: well nourished Neck Neck: no JVD Carotids: (more content not included)... Normal [facility] Comprehensive Metabolic Prof greg 07-02-2024 Albumin [Mass/Vol] 3.6 g/dL Normal 3.2-5.0 [facility] Comment on above: Performed By: #### L 500.4100, L500.4050 #### [facility] [place], [address] Albumin/Globulin [Mass ratio] 1.2 {ratio} Normal 0.9-2.4 [facility] Comment on above: Performed By: #### L 500.4100, L500.4050 #### [facility] [address] [place], [address] ALK P 86 U/L Normal 45-117 [facility] Comment on above: Performed By: #### L 500.4100, L500.4050 #### [facility] [address] [place], [address] ALT [Catalytic activity/Vol] 47 U/L Normal 13-56 [facility] Comment on above: Performed By: #### L 500.4100, L500.4050 #### [facility] [address] [place], [address] AST [Catalytic activity/Vol] 46 U/L High 15-37 [facility] Comment on above: Performed By: #### L 500.4100, L500.4050 #### [facility] [address] [place], [address] Bilirubin [Mass/Vol] 0.40 mg/dL Normal 0.20-1.00 [facility] Comment on above: Result Comment: For patients on eltrombopag therapy, use of Dimension [place] TBIL is not recommended. Performed By: #### L 500.4100, L500.4050 #### [facility] [address] [place], [address] BUN/CRE 21.5 RATIO High 10-20 [facility] Comment on above: Performed By: #### L 500.4100, L500.4050 #### [facility] [address] [place], [address] CA,Total 9.4 mg/dL Normal 8.5-10.1 [facility] Comment on above: Performed By: #### L 500.4100, L500.4050 #### [facility] [address] [place], [address] Chloride [Moles/Vol] 107 mmol/L Normal 98-107 [facility] Comment on above: Performed By: #### L 500.4100, L500.4050 #### [facility] [address] [place], [address] CO2 [Moles/Vol] 31.0 mmol/L Normal 21.0-32.0 [facility] Comment on above: Performed By: #### L 500.4100, L500.4050 #### [facility] [address] [place], [address] Creatinine [Mass/Vol] 0.93 mg/dL Normal 0.55-1.02 [facility] Comment on above: Result Comment: The validity of the calculated GFR GFRAA in patients over 70 years has not been determined. Clinical correlation is essential. Performed By: #### L 500.4100, L500.4050 #### [facility] [address] [place], [address] EST GFR - AA 76 mL/min Normal >60 [facility] Comment on above: Result Comment: Afri can Greek GFR Calc Performed By: #### L 500.4100, L500.4050 #### [facility] [address] [place], [address] GAP 2 Low 5-15 [facility] Comment on above: Performed By: #### L 500.4100, L500.4050 #### [facility] [address] [place], [address] GFR/1.73 sq M.predicted among non-blacks MDRD (S/P/Bld) [Vol rate/Area] 62 mL/min/{1.73_m2} Normal >60 [facility] Comment on above: Result Comment: Non- GFR Calc Performed By: #### L 500.4100, L500.4050 #### [facility] [address] [place], [address] Globulin (S) [Mass/Vol] 2.9 g/dL Normal 2.2-4.2 [facility] Comment on above: Performed By: #### L 500.4100, L500.4050 #### [facility] [address] [place], [address] Glucose [Mass/Vol] 84 mg/dL Normal 74-106 [facility] Comment on above: Performed By: #### L 500.4100, L500.4050 #### [facility] [address] [place], [address] Potassium [Moles/Vol] 4.5 mmol/L Normal 3.5-5.1 [facility] Comment on above: Performed By: #### L 500.4100, L500.4050 #### [facility] [address] [place], [address] Sodium [Moles/Vol] 140 mmol/L Normal 136-145 [facility] Comment on above: Performed By: #### L 500.4100, L500.4050 #### [facility] [address] [place], [address] T PROT 6.5 g/dL Normal 6.4-8.2 [facility] Comment on above: Performed By: #### L 500.4100, L500.4050 #### [facility] [address] [place], [address] Urea nitrogen [Mass/Vol] 20 mg/dL High 7-18 [facility] Comment on above: Performed By: #### L 500.4100, L500.4050 #### [facility] [address] [place], [address] Lipid Profileon 07-02-2024 Cholesterol [Mass/Vol] 184 mg/dL Normal 200 [facility] Comment on above: Result Comment: <200 mg/dL Desirable 200-240 mg/dL Borderline >240 mg/dL High Risk Performed By: #### L 500.4100, L500.4050 #### [facility] [address] [place], [address] Cholesterol in HDL [Mass/Vol] 101 mg/dL Normal [facility] Comment on above: Result Comment: The drugs N-Acetylcysteine and Metamizole may falsely depress this assay. Reference Range HDL <40 mg/dL Low HDL Cholesterol HDL >or= 60 mg/dL High HDL Cholesterol Performed By: #### L 500.4100, L500.4050 #### [facility] [address] [place], [address] Cholesterol in LDL [Mass/Vol] 67 mg/dL Normal 0-130 [facility] Comment on above: Performed By: #### L 500.4100, L500.4050 #### [facility] [address] [place], [address] Cholesterol in VLDL [Mass/Vol] 16 mg/dL Normal 5-40 [facility] Comment on above: Performed By: #### L 500.4100, L500.4050 #### [facility] [address] [place], [address] Triglyceride [Mass/Vol] 82 mg/dL Normal [facility] Comment on above: Result Comment: The drugs N-Acetylcysteine and Metamizole may falsely depress this assay. Serum Triglycerides Reference Interval Normal <150 mg/dL Borderline high 150 - 199 mg/dL High 200 - 499 mg/dL Very High > or = 500 mg/dL Performed By: #### L 500.4100, L500.4050 #### [facility] [address] [place], [address] 12 Lead EKG performed by [facility] on 07-01-2024 12 Lead EKG performed by [facility] [address] [place] [address] 12 Lead EKG performed by [facility] 07/01/245 MR#: [id number] Acct: [id number] Name: PRIYA GONZALEZFELICITA Rep #: [id number] : 1950 74 From: Betsy Souza MD Attending Dr: Dr. Betsy Souza MD Status: DEP AMB Ordering Dr: Betsy Souza MD Date: 07/01/24 Location: [facility] Sex: F C Admitted: BMS/12 Lead EKG performed by [facility] ECG Report Interpretation ----Sinus Rhythm Low voltage in precordial leads. -Anteroseptal infarct -age undetermined. ABNORMAL Electronically signed on 09/16/2024 at 11:[address] Betsy Souza [employer] Version 8610 09/16/24 1110 Date Betsy Souza MD CC: Dr. 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 [place] [address] OFFICE VISIT Date of Service: 07/01/24 MR#: [id number] Acct: [id number] Name: ADAMA GONZALEZ Rep #: [id number] : 1950 Provider: Dr. Betsy Souza MD Age/Sex: 74/F Location: [facility] Status: Signed HPI HPI History of Present Illness Details: This lady with history of paroxysmal atrial fibrillation and nonischemic cardiomyopathy is here for follow-up visit. Her recent echocardiogram showed recovery of her LV systolic function. Her LVEF was noted to be 55%. Denies any chest pains or shortness of breath. She occasionally feels her heart rate to be irregular. Occasionally lightheaded with that. No orthopnea. No PND. No ankle edema. 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 Tester Required: No Accompanied by: Self Is patient in pain?: Yes (neck; chronic) Pain scale (1-10): 5 Allergies propoxyphene (From DarCodefastt-N) Allergy (Verified 07/01/24 14:36) Other codeine Adverse Reaction (Verified 07/01/24 14:36) Nausea Medications ???Medication ???Instructions ???Recorded ???Confirmed ???Type biotin 2,500 mcg capsule 2,500 mcg PO DAILY SUPPLEMENT 12/12/22 07/01/24 History cranberry 400 mg capsule 400 mg PO DAILY 12/12/22 07/01/24 History melatonin 10 mg tablet 20 mg PO HS PRN Sleep 12/12/22 07/01/24 History diphenhydramine HCl 50 mg capsule 50 mg PO QHS 01/30/23 07/01/24 History (Un[employer] SleepGels) cholecalciferol (vitamin D3) 50 50 mcg PO DAILY SUPPLEMENT 12/20/23 07/01/24 History mcg (2,000 unit) tablet apixaban 5 mg tablet (Eliquis) 5 mg PO BID #180 tabs 02/28/24 07/01/24 Rx digoxin 125 mcg (0.125 mg) tablet 125 mcg PO DAILY HEART #90 tabs 02/28/24 07/01/24 Rx empagliflozin 10 mg tablet 10 mg PO DAILY #90 tabs 02/28/24 07/01/24 Rx (Jardiance) metoprolol tartrate 25 mg tablet 12.5 mg (1/2 x 25 mg) PO BID #90 02/28/24 07/01/24 Rx tabs atorvastatin 40 mg tablet 40 mg PO QHS #90 tabs 02/29/24 07/01/24 Rx lisinopril 2.5 mg tablet 2.5 mg PO DAILY for blood pressure 02/29/24 07/01/24 Rx #90 TABLETS Ejection fraction %: 55 Have you fallen in the past year?: No PFSH Medical History Atrial fibrillation Atrial fibrillation with RVR Cardiology follow-up encounter Coronary artery disease Dyslipidemia Former smoker Heartburn High cholesterol History of atrial fibrillation History of CHF (congestive heart failure) History of echocardiogram History of edema History of heart attack History of non-ST elevation myocardial infarction (NSTEMI) Hoarseness HX: breast cancer Hypoglycemia Leg cramps Nausea Non-ST elevation SD (NSTEMI) Nonischemic cardiomyopathy Syncope Wears glasses Surgical History History of 2 sections History of cardiac catheterization History of left heart catheterization (LHC) ( 10/06/22) History of mastectomy History of tonsillectomy Hx of section Hx of lumpectomy Hx of total mastectomy of left breast Family History Grandmother Myocardial infarction Father CVA (cerebral vascular accident) x2 Mother Heart disease Social History Smoking Status: Former smoker how long ago did patient quit smokin alcohol intake: former substance use type: does not use caffeine: Yes (occasionally) Type: coffee ROS Const Const: Negative for fatigue, weakness, headache(s) or weight gain ENT ENT: Positive for dizziness; Negative for headache(s), Nosebleed/epistaxis or balance problems Cardio Chest Pain: No Palpitations: Yes Edema: None Muscle aches with walking: None Resp Respiratory: Negative for SOB with activity, SOB at rest or SOB orthopnea SOB lying down GI GI: Negative nausea, vomiting or heartburn Musc Musc: Negative for muscle aches/ myalgia, muscle weakness, joint pain or balance problems Neuro Neuro: Positive for dizziness, lightheadedness (pt states could be related to hypoglycemia) and near syncope; Negative for syncope, headache(s) or weakness Endo Endo: Negative for fatigue Cardiology Exam Const Appearance: comfortable and no acute distress Nutritional Appearance: well nourished Neck Neck: no JVD Carotids: Negative bruit Chest Auscultation: Bilateral: Clear to Auscultation Cardio Rate: regular rate Rhythm: regular rhythm Heart sounds: S (more content not included)... Normal [facility] No Panel Informationon 12-13 Culture Urine <10,000 cfu/ml. No Significant growth. Sensitivity not indicated. [facility] .Auto Diffon 11-24-2023 Basophil, Absolute 0.0 10 3/mcL Normal 0.0-0.2 [facility] ([place] Comment on above: Performed By: #### A GLENROY, CBC, DIG, TSH, CMP, GFR, ADIFF #### [address] [address] Basophils/100 WBC (Bld) 0.2 % Normal 0.0-2.5 [facility] ([place]) Comment on above: Performed By: #### A GLENROY, CBC, DIG, TSH, CMP, GFR, ADIFF #### [address] [address] Eosinophil, Absolute 0.1 10 3/mcL Normal 0.0-0.4 [facility] ([place]) Comment on above: Performed By: #### A GLENROY, CBC, DIG, TSH, CMP, GFR, ADIFF #### [address] [address] Eosinophils/100 WBC (Bld) 2.1 % Normal 0.0-7.0 [facility] ([place]) Comment on above: Performed By: #### A GLENROY, CBC, DIG, TSH, CMP, GFR, ADIFF #### [address] [address] Lymphocyte, Absolute 1.3 10 3/mcL Normal 0.8-3.9 [facility] ([place] Comment on above: Performed By: #### A GLENROY, CBC, DIG, TSH, CMP, GFR, ADIFF #### [address] [address] Lymphocytes/100 WBC (Bld) 35.0 % Normal 10.0-50.0 [facility] ([place]) Comment on above: Performed By: #### A GLENROY, CBC, DIG, TSH, CMP, GFR, ADIFF #### [address] [address] Monocyte, Absolute 0.4 10 3/mcL Normal 0.2-1.0 [facility] ([place] Comment on above: Performed By: #### A GLENROY, CBC, DIG, TSH, CMP, GFR, ADIFF #### [address] [address] Monocytes/100 WBC (Bld) 11.6 % Normal 1.7-13.0 [facility] ([place]) Comment on above: Performed By: #### A GLENROY, CBC, DIG, TSH, CMP, GFR, ADIFF #### [address] [address] Neutrophils/100 WBC (Bld) 51.1 % Normal 37.0-80.0 [facility] ([place]) Comment on above: Performed By: #### A GLENROY, CBC, DIG, TSH, CMP, GFR, ADIFF #### [address] [address] .GFRon 11-24-2023 GFR Non- 46 ml/min/1.73sqm Normal [facility] ([place]) Comment on above: Result Comment: GFR Population mean for , Non- Americans Ages 20-29 = 116 mL/min/1.73 sq.m. Ages 30-39 = 107 mL/min/1.73 sq.m. Ages 40-49 = 99 mL/min/1.73 sq.m. Ages 50-59 = 93 mL/min/1.73 sq.m. Ages 60-69 = 85 mL/min/1.73 sq.m. Ages 70+ = 75 mL/min/1.73 sq.m. Chronic Kidney Disease: Less than 60 mL/min/1.73 square meters End Stage Renal Disease: Less than 15 mL/min/1.73 square meters Performed By: #### A GLENROY, CBC, DIG, TSH, CMP, GFR, ADIFF #### [address] [address] GFR 56 ml/min/1.73sqm Normal [facility] ([place]) Comment on above: Result Comment: GFR Population mean for , Non- Americans Ages 20-29 = 116 mL/min/1.73 sq.m. Ages 30-39 = 107 mL/min/1.73 sq.m. Ages 40-49 = 99 mL/min/1.73 sq.m. Ages 50-59 = 93 mL/min/1.73 sq.m. Ages 60-69 = 85 mL/min/1.73 sq.m. Ages 70+ = 75 mL/min/1.73 sq.m. Chronic Kidney Disease: Less than 60 mL/min/1.73 square meters End Stage Renal Disease: Less than 15 mL/min/1.73 square meters Performed By: #### A GLENROY, CBC, DIG, TSH, CMP, GFR, ADIFF #### [address] [address] .NEUABSon 11-24-2023 Neutrophil, Absolute 1.8 10 3/mcL Low 2.9-6.2 [facility] ([place] Comment on above: Performed By: #### A GLENROY, CBC, DIG, TSH, CMP, GFR, ADIFF #### [address] [address] CBCon 11-24-2023 Erythrocyte distribution width (RBC) [Ratio] 13.3 % Normal 11.5-14.5 [facility] ([place]) Comment on above: Performed By: #### A GLENROY, CBC, DIG, TSH, CMP, GFR, ADIFF #### [address] [address] Hematocrit (Bld) [Volume fraction] 40.5 % Normal 37.0-47.0 [facility] ([place]) Comment on above: Performed By: #### A GLENROY, CBC, DIG, TSH, CMP, GFR, ADIFF #### [address] [address] Hgb 13.5 G/dL Normal 12.0-16.0 [facility] ([place] Comment on above: Performed By: #### A GLENROY, CBC, DIG, TSH, CMP, GFR, ADIFF #### [address] [address] MCH (RBC) [Entitic mass] 31.1 pg Normal 27.0-31.2 [facility] ([place] Comment on above: Performed By: #### A GLENROY, CBC, DIG, TSH, CMP, GFR, ADIFF #### [address] [address] MCHC 33.3 G/dL Normal 33.0-37.0 [facility] ([place]) Comment on above: Performed By: #### A GLENROY, CBC, DIG, TSH, CMP, GFR, ADIFF #### [address] [address] MCV (RBC) [Entitic vol] 93.4 fL Normal 80.0-94.0 [facility] ([place] Comment on above: Performed By: #### A GLENROY, CBC, DIG, TSH, CMP, GFR, ADIFF #### [address] [address] Platelet 182 10 3/mcL Normal 130-400 [facility] ([place] Comment on above: Performed By: #### A GLENROY, CBC, DIG, TSH, CMP, GFR, ADIFF #### [address] [address] Platelet mean volume (Bld) [Entitic vol] 10.0 fL Normal 7.4-10.4 [facility] ([place] Comment on above: Performed By: #### A GLENROY, CBC, DIG, TSH, CMP, GFR, ADIFF #### [address] [address] RBC 4.34 10 6/mcL Normal 4.20-5.40 [facility] ([place]) Comment on above: Performed By: #### A GLENROY, CBC, DIG, TSH, CMP, GFR, ADIFF #### [address] [address] WBC 3.6 10 3/mcL Low 4.6-10.8 [facility] ([place] Comment on above: Performed By: #### A GLENROY, CBC, DIG, TSH, CMP, GFR, ADIFF #### [address] [address] CMPon 11-24-2023 Albumin Level 3.6 G/dL Normal 3.4-4.8 [facility] ([place]) Comment on above: Performed By: #### A GLENROY, CBC, DIG, TSH, CMP, GFR, ADIFF #### [address] [address] Albumin/Globulin [Mass ratio] 1.3 {ratio} Normal 1.1-2.5 [facility] ([place]) Comment on above: Performed By: #### A GLENROY, CBC, DIG, TSH, CMP, GFR, ADIFF #### [address] [address] ALP [Catalytic activity/Vol] 93 U/L Normal 40-135 [facility] ([place]) Comment on above: Performed By: #### A GLENROY, CBC, DIG, TSH, CMP, GFR, ADIFF #### [address] [address] ALT [Catalytic activity/Vol] 66 U/L High 14-59 [facility] ([place] Comment on above: Performed By: #### A GLENROY, CBC, DIG, TSH, CMP, GFR, ADIFF #### [address] [address] AST [Catalytic activity/Vol] 55 U/L High 10-40 [facility] ([place] Comment on above: Performed By: #### A GLENROY, CBC, DIG, TSH, CMP, GFR, ADIFF #### [address] [address] Bili Total 0.3 mg/dL Normal 0.2-1.0 [facility] ([place]) Comment on above: Result Comment: Use of this assay is not recommended for patients undergoing treatment with eltrombopag due to the potential for falsely elevated results. Performed By: #### A GLENROY, CBC, DIG, TSH, CMP, GFR, ADIFF #### [address] [address] BUN/Creatinine Ratio 21 ratio Normal 7-27 [facility] ([place] Comment on above: Performed By: #### A GLENROY, CBC, DIG, TSH, CMP, GFR, ADIFF #### [address] [address] Calcium [Mass/Vol] 8.8 mg/dL Normal 8.4-10.2 [facility] ([place]) Comment on above: Performed By: #### A GLENROY, CBC, DIG, TSH, CMP, GFR, ADIFF #### [address] [address] Chloride [Moles/Vol] 104 mmol/L Normal 98-107 [facility] ([place] Comment on above: Performed By: #### A GLENROY, CBC, DIG, TSH, CMP, GFR, ADIFF #### [address] [address] CO2 [Moles/Vol] 29 mmol/L Normal 23-31 [facility] ([place] Comment on above: Performed By: #### A GLENROY, CBC, DIG, TSH, CMP, GFR, ADIFF #### [address] [address] Creatinine [Mass/Vol] 1.16 mg/dL High 0.55-1.02 [facility] ([place] Comment on above: Performed By: #### A GLENROY, CBC, DIG, TSH, CMP, GFR, ADIFF #### [address] [address] Electrolyte Balance 9.0 mEq/L Normal 4.0-15.0 [facility] ([place] Comment on above: Performed By: #### A GLENROY, CBC, DIG, TSH, CMP, GFR, ADIFF #### [address] [address] Globulin 2.7 G/dL Normal [facility] ([place] Comment on above: Performed By: #### A GLENROY, CBC, DIG, TSH, CMP, GFR, ADIFF #### [place] [address] Glucose [Mass/Vol] 86 mg/dL Normal 83-110 [facility] ([place] Comment on above: Performed By: #### A GLENROY, CBC, DIG, TSH, CMP, GFR, ADIFF #### [address] [address] Potassium [Moles/Vol] 4.4 mmol/L Normal 3.5-5.1 [facility] ([place] Comment on above: Performed By: #### A GLENROY, CBC, DIG, TSH, CMP, GFR, ADIFF #### [address] [address] Sodium [Moles/Vol] 142 mmol/L Normal 136-145 [facility] ([place] Comment on above: Performed By: #### A GLENROY, CBC, DIG, TSH, CMP, GFR, ADIFF #### [address] [address] Total Protein 6.3 G/dL Low 6.4-8.2 [facility] ([place]) Comment on above: Performed By: #### A GLENROY, CBC, DIG, TSH, CMP, GFR, ADIFF #### [address] [address] Urea nitrogen [Mass/Vol] 24 mg/dL High 7-18 [facility] ([place] Comment on above: Performed By: #### A GLENROY, CBC, DIG, TSH, CMP, GFR, ADIFF #### [address] [address] DIGon 11-24-2023 LDose Digoxin: Unknown Normal [facility] ([place]) Comment on above: Performed By: #### A GLENROY, CBC, DIG, TSH, CMP, GFR, ADIFF #### [address] [address] Digoxin Level 1.95 ng/mL Normal 0.90-2.00 [facility] ([place] Comment on above: Performed By: #### A GLENROY, CBC, DIG, TSH, CMP, GFR, ADIFF #### [address] [address] TSHon 11-24-2023 TSH Qn 1.40 m[IU]/L Normal 0.36-3.74 [facility] ([place] Comment on above: Performed By: #### A GLENROY, CBC, DIG, TSH, CMP, GFR, ADIFF #### [place] [id number] [place], [place] [address] No Panel Informationon 03-29 Culture Urine No growth at 48 hours. [facility] Basophil percentageOrdered B y: Dr. Souza on 12-14-2022 Chloride [Moles/Vol] 106 mmol/L 98-107 [facility] Glucose [Mass/Vol] 79 mg/dL 74-106 [facility] Potassium [Moles/Vol] 4.4 mmol/L 3.5-5.1 [facility] Sodium [Moles/Vol] 134 mmol/L 136-145 [facility] Basophil percentageOrdered B y: Dr. Zavala on 12-14-2022 Basophil percentage < 0.9 mg/dL 0.55-1.02 [facility] - Chemistry and C hemistry - challengeOrdered By: Dr. Souza on 12-14-2022 CO2 [Moles/Vol] 26.0 mmol/L 21.0-32.0 [facility] Urea nitrogen/Creatinine [Mass ratio] 20.2 mg/mg 10-20 [facility] No Panel InformationOrdered By: Dr. Souza on 12-14-2022 Estimated GFR (MDRD) Amer 85 mL/min >60 [facility] Comment on above: GFR Calc Estimated GFR (MDRD) Non-Af Amer 70 mL/min >60 [facility] Comment on above: Non- GFR Calc No Panel InformationOrdered By: Dr. Zavala on 12-14-2022 Bedside Estimated GFR (eGFR) > 60.0000 mL/min >60 [facility] Serum or plasma calcium dain urement (mass/volume)Ordered By: Dr. Souza on 12-14-2022 Calcium [Mass/Vol] 8.6 mg/dL 8.5-10.1 [facility] Serum or plasma creatinine m easurement (mass/volume)Ordered By: Dr. Souza on 12-14-2022 Creatinine [Mass/Vol] 0.84 mg/dL 0.55-1.02 [facility] Comment on above: The validity of the calculated GFR & GFRAA in patients over 70 years has not been determined. Clinical correlation is essential. Serum or plasma urea nitroge n measurement (mass/volume)Ordered By: Dr. Souza on 12-14-2022 Urea nitrogen [Mass/Vol] 17 mg/dL 7-18 [facility] Thin prep Papanicolaou smear with manual screeningOrdered By: Dr. Souza on 12-14-2022 Thin prep Papanicolaou smear with manual screening 2 5-15 [facility] Basophil percentageOrdered B y: Dr. Souza on 11-01-2022 Bilirubin [Mass/Vol] 0.40 mg/dL 0.20-1.00 [facility] Comment on above: For patients on eltr ombopag therapy, use of Dimension [place] TBIL is not recommended. Chloride [Moles/Vol] 105 mmol/L 98-107 [facility] Glucose [Mass/Vol] 83 mg/dL 74-106 [facility] Potassium [Moles/Vol] 4.4 mmol/L 3.5-5.1 [facility] Protein [Mass/Vol] 6.8 g/dL 6.4-8.2 [facility] Sodium [Moles/Vol] 140 mmol/L 136-145 [facility] Laboratory - Chemistry and C hemistry - challengeOrdered By: Dr. Souza on 11-01-2022 ALP [Catalytic activity/Vol] 113 U/L 45-117 [facility] ALT [Catalytic activity/Vol] 31 U/L 13-56 [facility] CO2 [Moles/Vol] 30.0 mmol/L 21.0-32.0 [facility] Globulin (S) [Mass/Vol] 3.2 g/dL 2.2-4.2 [facility] Urea nitrogen/Creatinine [Mass ratio] 15.9 mg/mg 10-20 [facility] No Panel InformationOrdered By: Dr. Souza on 11-01-2022 Digoxin Level 1.78 ng/mL 0.80-2.00 [facility] Estimated GFR (MDRD) Amer 65 mL/min >60 [facility] Comment on above: GFR Calc Estimated GFR (MDRD) Non-Af Amer 54 mL/min >60 [facility] Comment on above: Non- GFR Calc Serum or plasma albumin dain urement (mass/volume)Ordered By: Dr. Souza on 11-01-2022 Albumin [Mass/Vol] 3.6 g/dL 3.2-5.0 [facility] Serum or plasma albumin/glob ulin mass ratioOrdered By: Dr. Souza on 11-01-2022 Albumin/Globulin [Mass ratio] 1.1 {ratio} 0.9-2.4 [facility] Serum or plasma calcium adin urement (mass/volume)Ordered By: Dr. Souza on 11-01-2022 Calcium [Mass/Vol] 9.4 mg/dL 8.5-10.1 [facility] Serum or plasma creatinine m easurement (mass/volume)Ordered By: Dr. Souza on 11-01-2022 Creatinine [Mass/Vol] 1.07 mg/dL 0.55-1.02 [facility] Comment on above: The validity of the calculated GFR & GFRAA in patients over 70 years has not been determined. Clinical correlation is essential. Serum or plasma urea nitroge n measurement (mass/volume)Ordered By: Dr. Souza on 11-01-2022 Urea nitrogen [Mass/Vol] 17 mg/dL 7-18 [facility] Thin prep Papanicolaou smear with manual screeningOrdered By: Dr. Souza on 11-01-2022 Thin prep Papanicolaou smear with manual screening 28 U/L 15-37 [facility] Thin prep Papanicolaou smear with manual screening 5 5-15 [facility] Anaerobic cultureOrdered By: Dr. Roman on 10-15-2022 Bacteria identified Anaer cx Nom (Unsp spec) No growth in 5 days. [facility] Bacterial body fluid culture Ordered By: Dr. Roman on 10-12-2022 Bacteria identified Cx Nom (Body fld) Culture exhibits no growth. [facility] Gram stain for investigation of transfusion reactionOrdered By: Dr. Roman on 10-11-2022 Microscopic observation Gram stain Nom (Unsp spec) [facility] Absolute lymphocyte countOrd ered By: Dr. Jenkins on 10-10-2022 Lymphocytes Auto (Unsp spec) [#/Vol] 0.96 10*3/uL 0.83-4.51 [facility] Basophil percentageOrdered B y: Dr. Jenkins on 10-10-2022 Basophils/100 WBC (Bld) 0.8 % 0-1 [facility] Chloride [Moles/Vol] 106 mmol/L 98-107 [facility] Eosinophils/100 WBC (Bld) 1.8 % 0-5 [facility] Glucose [Mass/Vol] 97 mg/dL 74-106 [facility] Neutrophils (Bld) [#/Vol] 3.3 10*3/uL 2.0-7.7 [facility] Neutrophils/100 WBC (Bld) 65.1 % 47-70 [facility] Potassium [Moles/Vol] 3.9 mmol/L 3.5-5.1 [facility] Sodium [Moles/Vol] 140 mmol/L 136-145 [facility] WBC (Bld) [#/Vol] 5.1 10*3/uL 4.4-11.0 [facility] Blood erythrocytes count (nu mber/volume)Ordered By: Dr. Jenkins on 10-10-2022 RBC (Bld) [#/Vol] 4.28 10*6/uL 4.2-5.4 [facility] Blood hemoglobin measurement (mass/volume)Ordered By: Dr. Jenkins on 10-10-2022 Hemoglobin (Bld) [Mass/Vol] 12.7 g/dL 12.0-15.0 [facility] Blood lymphocytes/100 leukoc ytesOrdered By: Dr. Jenkins on 10-10-2022 Lymphocytes/100 WBC (Bld) 19.0 % 19-41 [facility] Blood monocytes/100 leukocyt esOrdered By: Dr. Jenkins on 10-10-2022 Monocytes/100 WBC (Bld) 13.1 % 0-10 [facility] Blood platelet mean volumeOr dered By: Dr. Jenkins on 10-10-2022 Platelet mean volume (Bld) [Entitic vol] 10.9 fL 6.2-12.0 [facility] Body fluid appearanceOrdered By: Dr. Roman on 10-10-2022 Appearance (Body fld) CLEAR [facility] Body fluid color determinati onOrdered By: Dr. Roman on 10-10-2022 Color (Body fld) LT YEL [facility] Body fluid lactate dehydroge nase measurement (enzymatic activity/volume) by pyruvateOrdered By: Dr. Roman on 10-10-2022 LDH Pyruvate to lactate reaction (Body fld) [Catalytic activity/Vol] 90 Units/l Not Establ. [facility] Body fluid leukocytes count (number/volume)Ordered By: Dr. Roman on 10-10-2022 WBC (Body fld) [#/Vol] 0.386 10*3/uL [facility] Body fluid lymphocytes/100 l eukocytesOrdered By: Dr. Roman on 10-10-2022 Lymphocytes/100 WBC (Body fld) 25 % [facility] Body fluid macrophage countO rdered By: Dr. Roman on 10-10-2022 Macrophages (Body fld) [#/Vol] 32 % [facility] Body fluid mesothelial cell percentageOrdered By: Dr. Roman on 10-10-2022 Mesothelial cells/100 WBC (Body fld) 4 % [facility] Body fluid pH measurementOrd ered By: Dr. Roman on 10-10-2022 pH (Body fld) 7.2 [pH] Not Estab. [facility] Comment on above: The reference interv al(s) and other method performance specificationshave not been established for this body fluid. The test result must beintegrated into the clinical context for interpretation.Performed at: [address] [id number] Director: Kim Padilla MD, Phone: [phone] Body fluid protein measureme nt (mass/volume)Ordered By: Dr. Roman on 10-10-2022 Protein (Body fld) [Mass/Vol] 2.5 g/dL Not Establ. [facility] Body fluid segmented neutrop hils count (number/volume)Ordered By: Dr. Roman on 10-10-2022 Segmented neutrophils (Body fld) [#/Vol] 31 % [facility] Cytology report of Body flui d Cyto stainOrdered By: Dr. Roman on 10-10-2022 Cytology report Cyto stain Doc (Body fld) SEE PATHOLOGY REPORT [facility] Comment on above: Specimen submitted t o Anatomical Pathology Department for testing. Determination of erythrocyte mean corpuscular volume (MCV)Ordered By: Dr. Jenkins on 10-10-2022 MCV (RBC) [Entitic vol] 93.0 fL 81-99 [facility] Hematocrit Auto (Bld) [Volum e fraction]Ordered By: Dr. Jenkins on 10-10-2022 Hematocrit (Bld) [Volume fraction] 39.8 % 37-47 [facility] - Chemistry and C hemistry - challengeOrdered By: Dr. Jenkins on 10-10-2022 CO2 [Moles/Vol] 26.0 mmol/L 21.0-32.0 [facility] Urea nitrogen/Creatinine [Mass ratio] 29.0 mg/mg 10-20 [facility] - Hematology and Cell countsOrdered By: Dr. Jenkins on 10-10-2022 Erythrocyte distribution width (RBC) [Entitic vol] 43.3 fL 35.1-43.9 [facility] Erythrocyte distribution width (RBC) [Ratio] 12.7 % 11.6-14.6 [facility] Immature granulocytes/100 WBC (Bld) 0.200 % 0.0-0.9 [facility] Comment on above: IG% - Immature Granu locytes (promyelocytes, myelocytes and metamyelocytes) > 1% indicates that a LEFT SHIFT is Present. MCH (RBC) [Entitic mass] 29.7 pg 27.0-32.0 [facility] Nucleated RBC/100 WBC (Bld) [Ratio] 0 % 0-5 [facility] MCHC Auto (RBC) [Mass/Vol]Or dered By: Dr. Jenkins on 10-10-2022 MCHC (RBC) [Mass/Vol] 31.9 g/dL 32-36 [facility] Mononuclear cells Auto (Body fld) [#/Vol]Ordered By: Dr. Roman on 10-10-2022 Mononuclear cells (Body fld) [#/Vol] 0.254 10*3/uL [facility] No Panel InformationOrdered By: Dr. Roman on 10-10-2022 Body Fluid Comment 2 SEE COMMENT [facility] Body Fluid Glucose 116 mg/dL 40-70 [facility] Body Fluid Mononuclear WBCs (%) 65.8 % [facility] Body Fluid Pathologist Comment Reviewed [facility] Comment on above: Previous reported re sult: May follow Edited by: ZIA on 10/11/22:1450Negative for malignant cells.Sterling Meade M.D. 10/11/22 AMENDED REPORT 10/11/22 1450 PATH COMM/BF previously reported as: May follow Body Fluid Polynuclear WBCs (#) 0.132 10^3/uL [facility] Body Fluid Polynuclear WBCs (%) 34.2 % [facility] Body Fluid RBC 27 /mm3 [facility] No Panel InformationOrdered By: Dr. Jenkins on 10-10-2022 Estimated Creatinine Clearance Calc 44.01 ml/min [facility] Estimated GFR (MDRD) Amer 87 mL/min >60 [facility] Comment on above: GFR Calc Estimated GFR (MDRD) Non-Af Amer 72 mL/min >60 [facility] Comment on above: Non- GFR Calc Platelets bldOrdered By: Dr. Jenkins on 10-10-2022 Platelets (Bld) [#/Vol] 245 10*3/uL 150-450 [facility] Serum or plasma calcium dain urement (mass/volume)Ordered By: Dr. Jenkins on 10-10-2022 Calcium [Mass/Vol] 8.7 mg/dL 8.5-10.1 [facility] Serum or plasma creatinine m easurement (mass/volume)Ordered By: Dr. Jenkins on 10-10-2022 Creatinine [Mass/Vol] 0.83 mg/dL 0.55-1.02 [facility] Comment on above: The validity of the calculated GFR & GFRAA in patients over 70 years has not been determined. Clinical correlation is essential. Serum or plasma urea nitroge n measurement (mass/volume)Ordered By: Dr. Jenkins on 10-10-2022 Urea nitrogen [Mass/Vol] 24 mg/dL 7-18 [facility] Specimen source identificati on of body fluidOrdered By: Dr. Roman on 10-10-2022 Specimen source Nom (Body fld) THORACENTESIS [facility] Thin prep Papanicolaou smear with manual screeningOrdered By: Dr. Roman on 10-10-2022 Thin prep Papanicolaou smear with manual screening 8 % [facility] Thin prep Papanicolaou smear with manual screeningOrdered By: Dr. Jenkins on 10-10-2022 Thin prep Papanicolaou smear with manual screening 8 5-15 [facility] Total cell countOrdered By: Dr. Roman on 10-10-2022 Cells counted Molgen (Bld/Tiss) [#] 0.487 10^3/ul 0.000-0.000 [facility] Comment on above: This is the Total Nu mber of Nucleated Cell Types in the Body Fluid. Laboratory - Chemistry and C hemistry - challengeOrdered By: Dr. Roman on 10-07-2022 Natriuretic peptide B (Bld) [Mass/Vol] 145.7 pg/mL 0-100 [facility] Basophil percentageOrdered B y: Dr. Roman on 10-06-2022 Basophil percentage 3.6 mg/dL 2.5-4.9 [facility] Basophil percentageOrdered B y: Dr. Guaman on 10-06-2022 Lactate [Moles/Vol] 1.1 mmol/L 0.4-2.0 [facility] Bilirubin [Mass/Vol] 0.30 mg/dL 0.20-1.00 [facility] Comment on above: For patients on eltr ombopag therapy, use of Dimension [place] TBIL is not recommended. Cholesterol [Mass/Vol] 225 mg/dL <200 [facility] Comment on above: <200 mg/dL Desirable 200-240 mg/dL Borderline >240 mg/dL High Risk Protein [Mass/Vol] 5.9 g/dL 6.4-8.2 [facility] Triglyceride [Mass/Vol] 48 mg/dL <199 [facility] Comment on above: The drugs N-Acetylcy steine and Metamizole may falsely depress this assay.Serum Triglycerides Reference Interval Normal <150 mg/dL Borderline high 150 - 199 mg/dL High 200 - 499 mg/dL Very High > or = 500 mg/dL HCO3 (BldA) [Moles/Vol]Order ed By: Dr. Guaman on 10-06-2022 HCO3 (Bld) [Moles/Vol] 20 mmol/L 22-26 [facility] Laboratory - Chemistry and C hemistry - challengeOrdered By: Dr. Guaman on 10-06-2022 CO2 [Moles/Vol] 21 mmol/L 23-33 [facility] ALP [Catalytic activity/Vol] 102 U/L 45-117 [facility] ALT [Catalytic activity/Vol] 26 U/L 13-56 [facility] Globulin (S) [Mass/Vol] 2.8 g/dL 2.2-4.2 [facility] Laboratory - Chemistry and C hemistry - challengeOrdered By: Dr. Roman on 10-06-2022 Magnesium [Mass/Vol] 1.8 mg/dL 1.6-2.6 [facility] No Panel InformationOrdered By: Dr. Guaman on 10-06-2022 Bed Mix Venous Bld PCO2 at Pat Temp 30.4 mmHg 41-51 [facility] Blood Gas Liter Flow 8.0 /min [facility] Blood Gas Specimen Type POLINA [facility] Oxygen Delivery Device HFNC [facility] Venous Blood Base Excess -5 mmol/L -1.0-3.5 [facility] D-Dimer Quantitative (PE/DVT) 1.01 FEU/ug/m 0.27-0.49 [facility] Comment on above: D-Dimer ELEVATED (>0 .49): Additional studies and clinicalassessments are indicated to conclude diagnosis of:Deep Vein Thrombosis (DVT) or Pulmonary Embolism (PE)CRITICAL VALUE VERIFIED. CALLED TO Jazmin TAYLOR RN PCU10/06/22 0517 Wood Fuentes.RESULTS READ BACK BY SAME. Troponin I High Sensitivity 5549 pg/mL 3.0-54.0 [facility] Comment on above: Critical Result(s) C alled at: 05:56:57 10/06/2022 by: Luisito Pratt TO OSCAR TAYLOR RN ([facility]) Results read back by same. Please Note: New Test Units and Gender Specific Reference Ranges. For more information see Policy Stat Procedure [place] High Sensitivity Troponin (TNIH) and attachments. PO2 venousOrdered By: Dr. Rocco diaz on 10-06-2022 Oxygen (BldV) [Partial pressure] 64 mm[Hg] 25-40 [facility] Serum or plasma albumin dain urement (mass/volume)Ordered By: Dr. Guaman on 10-06-2022 Albumin [Mass/Vol] 3.1 g/dL 3.2-5.0 [facility] Serum or plasma albumin/glob ulin mass ratioOrdered By: Dr. Guaman on 10-06-2022 Albumin/Globulin [Mass ratio] 1.1 {ratio} 0.9-2.4 [facility] Serum or plasma cholesterol in HDL measurement (mass/volume)Ordered By: Dr. Guaman on 10-06-2022 Cholesterol in HDL [Mass/Vol] 96 mg/dL >40 [facility] Comment on above: The drugs N-Acetylcy steine and Metamizole may falsely depress this assay. Reference Range HDL <40 mg/dL Low HDL Cholesterol HDL >or= 60 mg/dL High HDL Cholesterol Serum or plasma cholesterol in VLDL measurement (mass/volume)Ordered By: Dr. Guaman on 10-06-2022 Cholesterol in VLDL [Mass/Vol] 10 mg/dL 5-40 [facility] Serum or plasma low density lipoprotein (LDL) cholesterol measurement (mass/volume)Ordered By: Dr. Guaman on 10-06-2022 Cholesterol in LDL [Mass/Vol] 119 mg/dL 0-130 [facility] Thin prep Papanicolaou smear with manual screeningOrdered By: Dr. Guaman on 10-06-2022 Thin prep Papanicolaou smear with manual screening 46 U/L 15-37 [facility] Vital signsOrdered By: Dr. Kristen degroot on 10-06-2022 Oxygen saturation in Blood 93 % 50-70 [facility] pH measurementOrdered By: Dr Remi Guaman on 10-06-2022 pH (Unsp spec) 7.42 [pH] 7.32-7.42 [facility] Influenza virus A and B and SARS-CoV-2 (COVID-19) Ag panel - Upper respiratory specimOrdered By: Dr. Guaman on 10-05-2022 SARS-CoV-2 (COVID-19) RNA HEIDI+probe Ql (Resp) [facility] No Panel InformationOrdered By: Dr. Tolbert on 10-05-2022 Thyroid Stimulating Hormone (TSH) 1.89 uIU/mL 0.358-3.74 [facility] No Panel Informationon 09-29 Culture Urine 10,000 - 50,000 cfu/ ml Multiple bacterial morphotypes present. Probable Contamination. Suggest recollection if clinically indicated. [facility] No Panel Informationon 09-08 Culture Urine 50,000 - 100,000 cfu/ml Enterococcus faecalis [facility] Enterococcus faecalis Enterococcus faecalis [facility] CBCon 03-03-2018 ABSOLUTE BAS 0.0 X10 Normal [facility] [place] Comment on above: Performed By: #### P TT, ACBC, ITROT, CHEM7F, PT ####Testing performed at [address] [address] ABSOLUTE EOS 0.00 X10 Normal [facility] [place] Comment on above: Performed By: #### P TT, ACBC, ITROT, CHEM7F, PT ####Testing performed at [address] [address] ABSOLUTE NEUTROPHIL COUNT 2.4 x10 Normal 1.0-7.0 [facility] Comment on above: Performed By: #### P TT, ACBC, ITROT, CHEM7F, PT ####Testing performed at [address] [address] Basophils/100 WBC Auto (Bld) 1.1 % Normal 0.0-2.0 [facility] Comment on above: Performed By: #### P TT, ACBC, ITROT, CHEM7F, PT ####Testing performed at [address] [address] DTYPE AUTO DIFF Normal [facility] Comment on above: Performed By: #### P TT, ACBC, ITROT, CHEM7F, PT ####Testing performed at [address] [address] Eosinophils/100 leukocytes 0.8 % Normal 0.0-11.0 [facility] Comment on above: Performed By: #### P TT, ACBC, ITROT, CHEM7F, PT ####Testing performed at [address] [address] Lymphocytes 1.00 X10 Normal [facility] Comment on above: Performed By: #### P TT, ACBC, ITROT, CHEM7F, PT ####Testing performed at [address] [address] Lymphocytes/100 leukocytes 25.0 % Normal 20.0-55.0 [facility] Comment on above: Performed By: #### P TT, ACBC, ITROT, CHEM7F, PT ####Testing performed at [address] [address] Monocytes 0.5 X10 Normal [facility] Comment on above: Performed By: #### P TT, ACBC, ITROT, CHEM7F, PT ####Testing performed at [address] [address] Monocytes/100 leukocytes 13.5 % High 0.0-10.0 [facility] Comment on above: Performed By: #### P TT, ACBC, ITROT, CHEM7F, PT ####Testing performed at [address] [address] Neutrophils/100 leukocytes 59.6 % Normal 37.0-75.0 [facility] Comment on above: Performed By: #### P TT, ACBC, ITROT, CHEM7F, PT ####Testing performed at [address] [address] Erythrocyte distribution width Auto Ratio (RBC) 13.2 % Normal 11.5-14.5 [facility] Comment on above: Performed By: #### P TT, ACBC, ITROT, CHEM7F, PT ####Testing performed at [address] [address] Erythrocytes (RBC) 3.88 /cmm Low 4.0-5.4 [facility] Comment on above: Performed By: #### P TT, ACBC, ITROT, CHEM7F, PT ####Testing performed at [address] [address] Hematocrit (HCT) 35.2 % Low 36.0-48.0 [facility] Comment on above: Performed By: #### P TT, ACBC, ITROT, CHEM7F, PT ####[place] [address] Hemoglobin mass conc (Bld) 12.1 g/dL Normal 12.0-16.0 [facility] Comment on above: Performed By: #### P TT, ACBC, ITROT, CHEM7F, PT ####[place] [address] MCH 31.3 pg Normal 26.0-35.0 [facility] Comment on above: Performed By: #### P TT, ACBC, ITROT, CHEM7F, PT ####[place] [address] MCHC mass conc (RBC) 34.5 g/dL Normal 27.0-37.0 [facility] Comment on above: Performed By: #### P TT, ACBC, ITROT, CHEM7F, PT ####[place] [address] MCV 90.7 fL Normal 80.0-100.0 [facility] Comment on above: Performed By: #### P TT, ACBC, ITROT, CHEM7F, PT ####[place] [address] Platelet mean volume (PMV) 8.9 fL Normal 7.4-11.0 [facility] Comment on above: Performed By: #### P TT, ACBC, ITROT, CHEM7F, PT ####Testing performed at [place] [id number] Platelets 189 /cmm Normal 130.0-400.0 [facility] Comment on above: Performed By: #### P TT, ACBC, ITROT, CHEM7F, PT ####[place] [address] WBC (Leukocytes) 4.0 /cmm Normal 3.6-11.0 [facility] Comment on above: Performed By: #### P TT, ACBC, ITROT, CHEM7F, PT ####[place] [address] CHEM 7 FASTINGon 03-03-2018 BUN (urea nitrogen) 20 mg/dL Normal 7-20 [facility] Comment on above: Performed By: #### P TT, ACBC, ITROT, CHEM7F, PT ####[place] [address] Creatinine 1.2 mg/dL High 0.52-1.04 [facility] Comment on above: Performed By: #### P TT, ACBC, ITROT, CHEM7F, PT ####[place] [address] eGFR (non-black) Average GFR for 60-6 9 years old = 85. Normal [facility] Comment on above: Result Comment: Senior Asset Manager armando Kidney disease, GFR = <60.Kidney failure, GFR = <15.The GFR estimate is not adjusted for extreme body surface area or acute process, nor has it been validated for women or ethnic groups other than and . Performed By: #### P TT, ACBC, ITROT, CHEM7F, PT ####Testing performed at [address] [address] EST. GFR, 58 ml/min/1.73sq.m [facility] Comment on above: Performed By: #### P TT, ACBC, ITROT, CHEM7F, PT ####Testing performed at [place] [id number] EST. GFR,Non 48 ml/min/1.73sq.m [facility] Comment on above: Performed By: #### P TT, ACBC, ITROT, CHEM7F, PT ####Testing performed at [place] [id number] Chloride 103 mmol/L Normal 98-107 [facility] Comment on above: Performed By: #### P TT, ACBC, ITROT, CHEM7F, PT ####Testing performed at [place] [id number] CO2 28 mmol/L Normal 22-30 [facility] Comment on above: Performed By: #### P TT, ACBC, ITROT, CHEM7F, PT ####Testing performed at [place] [id number] Glucose mass conc 130 mg/dL High 70-100 [facility] Comment on above: Result Comment: NORM AL <100 mg/dLPREDIABETES 101-126 mg/dLDIABETES 126 mg/dL or higher Performed By: #### P TT, ACBC, ITROT, CHEM7F, PT ####[place] [address] Potassium molar conc 4.1 mmol/L Normal 3.5-5.1 [facility] Comment on above: Performed By: #### P TT, ACBC, ITROT, CHEM7F, PT ####[place] [address] Sodium 138 mmol/L Normal 136-145 [facility] Comment on above: Performed By: #### P TT, ACBC, ITROT, CHEM7F, PT ####[place] [address] ED NOTEon 03-03-2018 [facility] NOTES Normal [facility] NOTES Normal [facility] NOTES Normal [facility] ED PROVIDERon 03-03-2018 [facility] NOTES Normal [facility] ISTAT TROPONIN Ion 8 Troponin I.cardiac mass conc ng/mL Normal 0-0.08 [facility] Comment on above: Performed By: #### P TT, ACBC, ITROT, CHEM7F, PT ####Testing performed at [place] [id number] PROTIMEon 03-03-2018 INR Coag RelTime (PPP) 1.05 {INR} Normal 0.88-1.12 [facility] Comment on above: Result Comment: 2.0- 3.0 THERAPEUTIC RANGE2.5-3.5 PROSTHETIC VALVE RANGE Performed By: #### P TT, ACBC, ITROT, CHEM7F, PT ####Testing performed at [address] [address] Prothrombin time (PT) Coag time (PPP) 13.7 s Normal 11.6-14.0 [facility] Comment on above: Performed By: #### P TT, ACBC, ITROT, CHEM7F, PT ####Testing performed at [address] [address] PTTon 03-03-2018 aPTT 26.8 s Normal 23.2-34.5 [facility] Comment on above: Result Comment: THER APEUTIC RANGE (43.0-65.0) Performed By: #### P TT, ACBC, ITROT, CHEM7F, PT ####Testing performed at [address] [address] Vital Signs Date Time Vital Sign Value Performing Clinician Faci lity 05-21-2025 13:22-0400 Body height 152.[address] Aureliano Ureña DO Work Phone: [facility] 05-21-2025 13:22-0400 Body mass index (BMI) [Ratio] 19.3 kg/m2 Dr. Aureliano Ureña DO Work Phone: [facility] 05-21-2025 13:22-0400 Body weight 44.[address] Aureliano Ureña DO Work Phone: [facility] 05-21-2025 13:22-0400 Diastolic blood pressure 58 mm[Hg] Dr. Aureliano Ureña DO Work Phone: [facility] 05-21-2025 13:22-0400 Heart rate 68 /min Dr. Aureliano Ureña DO Work Phone: [facility] 05-21-2025 13:22-0400 Respiratory rate 16 /min Dr. Aureliano Ureña DO Work Phone: [facility] 05-21-2025 13:22-0400 Systolic blood pressure 91 mm[Hg] Dr. Aureliano Ureña DO Work Phone: [facility] 12-12-2022 13:00-0400 Body height 152.4 cm MD Aurelinao BUTLER [facility] 12-12-2022 13:00-0400 Body mass index (BMI) [Ratio] 19.9 kg/m2 MD Cummings Niran[facility] 12-12-2022 13:00-0400 Body weight 46.26 kg MD Aureliano Ureña [facility] 12-12-2022 13:00-0400 Diastolic blood pressure 69 mm[Hg] MD Aureliano Ureña [facility] 12-12-2022 13:00-0400 Heart rate 57 /min MD Aureliano Ureña [facility] 12-12-2022 13:00-0400 Respiratory rate 16 /min MD Aureliano Mcleanr [facility] 12-12-2022 13:00-0400 Systolic blood pressure 114 mm[Hg] MD Aureliano Ureña [facility] 11-17-2022 08:52-0400 Body mass index (BMI) [Ratio] 19.9 kg/m2 MD Aureliano Ureña [facility] 11-17-2022 08:52-0400 Body temperature 97.5 [degF] MD Aureliano Ureña [facility] 11-17-2022 08:52-0400 Body weight 46.26 kg MD Aureliano Ureña [facility] 11-17-2022 08:52-0400 Diastolic blood pressure 60 mm[Hg] MD Aureliano Ureña [facility] 11-17-2022 08:52-0400 Heart rate 50 /min MD Aureliano Ureña [facility] 11-17-2022 08:52-0400 Respiratory rate 18 /min MD Aureliano Ureña [facility] 11-17-2022 08:52-0400 SaO2% (BldA) [Mass fraction] 98 % MD Aureliano Ureña [facility] 11-17-2022 08:52-0400 Systolic blood pressure 113 mm[Hg] MD Aureliano Ureña [facility] 11-01-2022 12:59-0400 Body height 152.4 cm MD Aureliano Ureña [facility] 11-01-2022 12:59-0400 Body mass index (BMI) [Ratio] 19.9 kg/m2 MD Aureliano Ureña [facility] 11-01-2022 12:59-0400 Body weight 46.26 kg MD Aureliano Ureña [facility] 11-01-2022 12:59-0400 Diastolic blood pressure 57 mm[Hg] MD Aureliano Ureña [facility] 11-01-2022 12:59-0400 Heart rate 64 /min MD Aureliano Ureña [facility] 11-01-2022 12:59-0400 Respiratory rate 16 /min MD Aureliano Ureña [facility] 11-01-2022 12:59-0400 Systolic blood pressure 120 mm[Hg] MD Aureliano Ureña [facility] 10-10-2022 15:52-0500 Body temperature 97.9 [degF] MD Aureliano Ureña [facility] 10-10-2022 15:52-0500 Diastolic blood pressure 45 mm[Hg] MD Aureliano Ureña [facility] 10-10-2022 15:52-0500 Heart rate 89 /min MD Aureliano Ureña [facility] 10-10-2022 15:52-0500 Respiratory rate 16 /min MD Aureliano Ureña [facility] 10-10-2022 15:52-0500 SaO2% (BldA) [Mass fraction] 97 % MD Aureliano Ureña [facility] 10-10-2022 15:52-0500 Systolic blood pressure 94 mm[Hg] MD Aureliano Ureña [facility] 10-10-2022 13:07-0500 Body weight 48.1 kg MD Aureliano Ureña [facility] 10-09-2022 14:19-0500 Inhaled oxygen flow rate 2 L/min MD Aureliano Ureña [facility] 10-05-2022 22:15-0500 Body mass index (BMI) [Ratio] 20.7 kg/m2 MD Aureliano Ureña [facility] Encounters Encounter Date Encounter Type Care Provider Facility Start: 05-21-2025 End: 05-21-[address] Betsy Souza MD -[facility] Work Phone: Start: 05-21-2025 End: 05-21-[address] Aureliano Ureña DO Work Phone: -[facility] Start: 12-18-2024 End: 12-18-2024 ambulatory Betsy Harley Facility:[facility] Start: 07-01-2024 End: 07-02-2024 ambulatory Betsy Harley Facility:[facility] Start: 12-14-2023 End: 12-19-2023 ambulatory ANA LEONARD BALL ASSEMBLER-WOOD TILE INSTALLATION HELPER Facility:B Start: 12-14-2023 End: 12-18-2023 Outreach Lab ANA Martin AISHA BALL ASSEMBLER-WOOD TILE INSTALLATION HELPER [facility] Start: 11-24-2023 End: 11-25-[address] AURELIANO UREÑA DO Facility:B Start: 03-29-2023 End: 04-03-2023 ambulatory DEEP GARAY MD Facility:B Start: 03-29-2023 End: 04-02-2023 Outreach Lab DEEP GARAY MD [facility] Start: 03-06-2023 End: 03-11-2023 ambulatory ELI BALL ASSEMBLER-WOOD TILE INSTALLATION HELPER Facility:B Start: 12-14-2022 End: 12-14-2022 ambulatory MD Aureliano Ureña [facility] Work Phone: Start: 12-14-2022 End: 12-14-2022 Patient encounter procedure MD Aureliano BUTLER [facility] Start: 12-12-2022 End: 12-12-2022 Patient encounter procedure MD Aureliano BUTLER [facility] Start: 11-30-2022 Non-patient / Non-visit MD Aureliano templeton [facility] Start: 11-17-2022 End: 11-17-2022 Patient encounter procedure MD Aureliano BUTLER [facility] Start: 11-01-2022 End: 11-01-2022 ambulatory MD Aureliano Ureña [facility] Work Phone: Start: 11-01-2022 End: 11-01-2022 Patient encounter procedure MD Aureliano Niranjan [facility] Start: 10-13-2022 Registered Referred MD Aureliano Ureña [facility]-Patient Link Start: 10-10-2022 Non-patient / Non-visit MD Aureliano templeton [facility] Inpatient Physicians Start: 10-10-2022 Non-patient / Non-visit MD Aureliano templeton [facility] Start: 10-09-2022 Non-patient / Non-visit MD Aureliano templeton [facility] Start: 10-09-2022 Non-patient / Non-visit MD Aureliano templeton [facility] Start: 10-08-2022 Non-patient / Non-visit MD Aureliano templeton [facility] Start: 10-08-2022 Non-patient / Non-visit MD Aureliano templeton [facility] Start: 10-08-2022 Non-patient / Non-visit MD Aureliano templeton [facility] Start: 10-07-2022 Non-patient / Non-visit MD Aureliano templeton [facility] Start: 10-07-2022 Non-patient / Non-visit MD Aureliano templeton [facility] Start: 10-07-2022 Non-patient / Non-visit MD Aureliano templeton [facility] Start: 10-06-2022 Non-patient / Non-visit MD Aureliano templeton [facility] Start: 10-06-2022 End: 10-10-2022 Evaluation and management of inpatient MD Aureliano Ureña [facility] Start: 10-06-2022 Non-patient / Non-visit MD Aureliano templeton [facility] Start: 10-05-2022 Non-patient / Non-visit MD Aureliano templeton [facility] Start: 09-29-2021 End: 10-03-[address] AURELIANO UREÑA DO [facility] Start: 09-08-2021 End: 09-12-2021 Outreach Lab 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 [facility] Start: 03-03-2018 End: 03-03-2018 Emergency department patient visit SON[facility] Procedures Date Procedure Procedure Detail Performing Clinician Start: 12-14-2022 CT of soft tissues o f neck with contrast MD Aureliano BUTLER Start: 12-14-2022 CT of thorax with contrast MD Aureliano Ureña [facility] Start: 10-10-2022 Plain chest X-ray MD Berryt Niranjan [facility] Start: 10-10-2022 Ultrasonic guidance for thoracentesis MD Aureliano Ureña [facility] Start: 10-10-2022 Plain chest X-ray MD Berryt Niranjan [facility] Start: 10-07-2022 Plain chest X-ray MD Vicente ett Niranjan [facility] Start: 10-06-2022 CT of head without contrast MD Aureliano Ureña [facility] Start: 10-06-2022 Plain chest X-ray MD Vicente ett Niranjan [facility] Start: 10-06-2022 CT of thorax, abdome n and pelvis with contrast MD Aureliano rUeña OLS Start: 10-05-2022 Plain chest X-ray MD Vicente ett Niranjan OLS Anaerobic microbial culture MD Aureliano BUTLER Bacterial culture MD Aureliano BUTLER Investigation of tra nsfusion reaction MD Aureliano Ureña OLS SARS-CoV-2 & FLU Ant igen (Rapid) MD Aureliano BUTLER Plan of Treatment Date Care Activity Detail Author Start: 11-17-2022 Patient referral [facility] Work Phone: Start: 10-10-2022 Patient discharge [facility] Start: 10-10-2022 Vital signs measurements [facility] Start: 10-10-2022 Vital signs measurements [facility] Start: 10-07-2022 [facility] Start: 10-07-2022 Consultation [facility] Start: 10-06-2022 [facility] Start: 10-06-2022 Notification of physician [facility] Start: 10-06-2022 Patient education [facility] Start: 10-06-2022 Provision of activity privileges [facility] Start: 10-06-2022 Pulse taking [facility] Start: 10-06-2022 Taking patient vital signs [facility] Start: 10-06-2022 Wound care [facility] Start: 10-06-2022 [facility] Start: 10-06-2022 Catheterization of vein [facility] Start: 10-06-2022 Following clinical pathway protocol [facility] Start: 10-06-2022 Medication not administered [facility] Start: 10-06-2022 Notification of physician [facility] Start: 10-06-2022 Preoperative care [facility] Start: 10-06-2022 [facility] Start: 10-06-2022 Referral to set illustrator [facility] Start: 10-06-2022 Admission procedure [facility] Start: 10-06-2022 Oxygen therapy [facility] Start: 10-05-2022 Following clinical pathway protocol [facility] Start: 10-05-2022 Assessment of risk of venous thromboembolism [facility] Start: 10-05-2022 Inhalation therapy procedure [facility] Start: 10-05-2022 Insertion of catheter into peripheral vein [facility] Start: 10-05-2022 Providing care according to standard [facility] Start: 10-05-2022 Provision of activity privileges [facility] Start: 10-05-2022 [facility] Start: 10-05-2022 Admission procedure [facility] Blood chemistry [facility] Lipid 1996 panel - S domonique or Plasma [facility] Patient Education RAD RN Thoracentesis Dc [facility] Work Phone: Patient referral [facility] Work Phone: [facility] Immunizations Immunization Date Immunization Notes Care Provider Lavinia quiros 11-11-2020 SARS-CoV-2 (COVID-19 ) mRNA-[id number] vaccine 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 [facility] Comment on above: Result Comment: Bettina Newman Payers Date Payer Category Payer Self-pay 2023 Medicare [id number] 2023 Unknown [id number] 1950 Unknown [id number] 1950 Unknown [id number] 1950 Unknown [id number] 1950 Unknown [id number] Unknown [facility] [id number] Unknown [id number] Unknown [id number] Unknown [id number] Unknown [id number] Social History Date Type Detail Facility Start: 05-04-2020 Never smoked t obacco (finding) [facility] Start: 1950 Sex Assigned At Female [facility] Start: 11-01-2022 End: 12-12-2022 Tobacco smoking status NHIS Unknown if ever smoked [facility] Start: 01-30-2023 End: 04-26-2023 Tobacco smoking status Ex-smoker (finding) [facility] [place] Sex Female [facility] Goals Date Patient Goal Desired Activity /State Functional Status Date Assessment Result Facility 10-10-2022 Functional status Bathroom Privilege [facility] Work Phone: Mental Status Date Assessment Result Facility 10-10-2022 Cognitive function Level Of Cons ciousness Awake;Alert;Appropriate [facility] Work Phone: 10-09-2022 Cognitive function Voice/Name [facility] Work Phone: Clinical Notes 03-07-2023 to 05-21-2025 LaboratoryLaboratory Note Date & Type Note Facility 05-21-2025 Progress note [facility] 12-15-2023 Note . MICRO - Microbiology PROCEDURE: Urine Culture [*1] SOURCE: Urine, Clean Catch BODY SITE: COLLECTED DATE/TIME: 12/14/2023 16:42 EDT RECEIVED DATE/TIME: 12/14/2023 19:30 EDT START DATE/TIME: 12/14/2023 19:31 EDT FREE TEXT SOURCE: FINAL REPORTS Final Report [] Verified Date/Time/Personnel: 12/15/2023 14:08 EDT <10,000 cfu/ml. No Significant growth. Sensitivity not indicated. Performing Locations *1: This test was performed at: [facility], [address] [place] [address], [facility] , [facility] [place] 03-31-2023 Note . MICRO - Microbiology PROCEDURE: Urine Culture [*1] SOURCE: Urine, Clean Catch BODY SITE: COLLECTED DATE/TIME: 03/29/2023 13:20 EDT RECEIVED DATE/TIME: 03/29/2023 19:35 EDT START DATE/TIME: 03/29/2023 19:35 EDT FREE TEXT SOURCE: AMENDED REPORTS Amended Report [] Verified Date/Time/Personnel: 03/31/2023 06:46 EDT No growth at 48 hours. FINAL REPORTS Final Report [] Verified Date/Time/Personnel: 03/30/2023 07:52 EDT No growth to date Performing Locations *1: This test was performed at: [address], [address] , [facility] ([place]) 03-07-2023 Note . MICRO - Microbiology PROCEDURE: Urine Culture [*1] SOURCE: Urine, Clean Catch BODY SITE: COLLECTED DATE/TIME: 03/06/2023 15:55 EDT RECEIVED DATE/TIME: 03/06/2023 19:05 EDT START DATE/TIME: 03/06/2023 19:06 EDT FREE TEXT SOURCE: FINAL REPORTS Final Report [] Verified Date/Time/Personnel: 03/07/2023 14:29 EDT 50,000 - 100,000 cfu/ml Mixed growth consistent with normal urogenital cristopher. Performing Locations *1: This test was performed at: [facility], [address] [place] [address], [id number] , [facility] [place] Evaluation + Plan note No data available for this section [facility] Evaluation + Plan note Future Appointments Appointment Date:04/26/2023 02:20:00 PM Scheduled Provider:AURELIANO UREÑA DO Location:[facility] Appointment Type:PC OV Future Scheduled TestsThyroid Stimulating Hormone 04/21/23Complete Blood Count 04/21/23Lipid Profile 04/21/23Complete Metabolic Panel 04/21/23 [facility] Evaluation + Plan note Future Appointments Appointment Date:05/27/2024 10:35:00 AM Scheduled Provider:AURELIANO UREÑA DO Location:[facility] Appointment Type:PC OV Follow Up Future Scheduled TestsThyroid Stimulating Hormone 04/21/23Complete Blood Count 04/21/23Lipid Profile 04/21/23PTH, Intact 05/26/24Vitamin D Level 05/26/24Complete Metabolic Panel 05/26/24Complete Metabolic Panel 04/21/23 [facility] Evaluation note Diagnosis Onset Date Atrial fibrillation with RVR acute Nonischemic cardiomyopathy a cute Hyperglycemia resolved Hypokalemia resolved Hypoxia resolved Pleural effusion resolved Nausea acute Atrial fibrillation chronic Coronary artery disease 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 Dyslipidemia chronic Nonischemic cardiomyopathy c hronic [facility] Work Phone: Evaluation note* Diagnosis Onset Date Resolution Status Atrial fibrillation with RVR acute Hyperglycemia resolved Hypokalemia resolved Hypoxia resolved Pleural effusion resolved Nausea acute Nonischemic cardiomyopathy a cute Atrial fibrillation chronic 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 artery disease 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 Dyslipidemia chronic Hoarseness acute Pleural effusion resolved Nonischemic cardiomyopathy a cute Atrial fibrillation chronic Coronary artery disease 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 Dyslipidemia [facility] Work Phone: Evaluation note* Diagnosis Onset Date Resolution Status Admit Date Atrial fibrillation chronic Octob er 2024 1:13pm Coronary artery disease chronic O ctober 2024 1:13pm Dyslipidemia chronic May 21, 2025 1:13pm Nonischemic cardiomyopathy chronic May 21, 2025 1:13pm [facility] Work Phone: Hospital Discharge instructions No data available for this section [facility] Projbess note No data available for this section [facility] Prowveic note Author Betsy Souza [facility] Note Date/Time May 21, 2025 1: 34pm [facility] [address] [place] [address] OFFICE VISIT Date of Service: 05/21/25 MR#: [id number] Acct: [id number] Name: ADAMA GONZALEZ Rep #: [id number] : 1950 Provider: Dr. Nile Souza MD Age/Sex: 75/F Location: [facility] Status: Signed HPI HPI History of Present Illness Details: Adama has history of paroxysmal atrial fibrillation and nonischemic cardiomyopathy. She is here for follow-up visit. Denies any complaints. No chest pains. No shortness of breath. No lightheadedness or dizziness. No syncope or presyncope. No orthopnea or PND or ankle edema. She has rare palpitations. 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 Required: No Accompanied by: Self Is patient in pain?: No Allergies propoxyphene (From [employer]) Allergy (Verified 05/21/25 13:22) Other codeine Adverse Reaction (Verified 05/21/25 13:22) Nausea Medications ?Medication ?Instructions ?Recorded ?Confirmed ?Type biotin 2,500 mcg capsule 2,500 mcg PO DAILY SUPPLEMEN T 12/12/22 05/21/25 History cranberry fruit 400 mg capsule 400 mg PO DAILY 3 05/21/25 History melatonin 10 mg tablet 20 mg PO HS PRN Sleep 05/21/25 History diphenhydramine HCl 50 mg capsule 50 mg PO QHS 3 05/21/25 History (Un[employer] SleepGels) cholecalciferol (vitamin D3) 50 50 mcg PO DAILY SUPPLE MENT 12/20/23 05/21/25 History mcg (2,000 unit) tablet docusate sodium 100 mg capsule 100 mg PO QDAY PRN 11/2105/21/25 History (Dulcolax Stool Softener (docusate)) empagliflozin 10 mg tablet 10 mg PO DAILY #90 tabs 10/1505/21/25 Rx (Jardiance) metoprolol tartrate 25 mg tablet 12.5 mg (1/2 x 25 mg) PO BID #90 02/19/25 05/21/25 Rx tabs apixaban 5 mg tablet (Eliquis) 5 mg PO BID #180 tabs 0 02/24/25 05/21/25 Rx atorvastatin 40 mg tablet 40 mg PO QHS #90 tabs 05/21/25 Rx lisinopril 2.5 mg tablet 2.5 mg PO DAILY for blood pr essure 05/20/25 05/21/25 Rx #90 TABLETS Ejection fraction %: 55 Have you fallen in the past year?: No PFSH Medical History Atrial fibrillation Atrial fibrillation with RVR Cardiology follow-up encounter Coronary artery disease Dyslipidemia Former smoker Heartburn High cholesterol History of atrial fibrillation History of CHF (congestive heart failure) History of echocardiogram History of edema History of heart attack History of non-ST elevation myocardial infarction (NSTEMI) Hoarseness HX: breast cancer Hypoglycemia Leg cramps Nausea Non-ST elevation SD (NSTEMI) Nonischemic cardiomyopathy Syncope Wears glasses Surgical History History of 2 sections History of cardiac catheterization History of left heart catheterization (LHC) (~10/06/22) History of mastectomy History of tonsillectomy Hx of section Hx of lumpectomy Hx of total mastectomy of left breast Family History Grandmother Myocardial infarction Father CVA (cerebral vascular accident) x2 Mother Heart disease Social History Smoking Status: Former smoker how long ago did patient quit smokin alcohol intake: former substance use type: does not use caffeine: Yes (occasionally) Type: coffee ROS Const Const: Negative for fatigue or weakness Eyes Eyes: Negative for change in vision ENT ENT: Negative for dizziness or balance problems Cardio Chest Pain: No Palpitations: Yes (occ fluttering) Edema: None Resp Respiratory: Negative for SOB with activity, SOB at rest or SOB orthopnea\SOB lying down GI GI: Negative nausea or heartburn Musc Musc: Negative for balance problems Neuro Neuro: Negative for dizziness, lightheadedness, near syncope, syncope or weakness Endo Endo: Negative for fatigue Cardiology Exam Const Appearance: comfortable and no acute distress Nutritional Appearance: well nourished Neck Neck: no JVD Carotids: Negative bruit Chest Auscultation: Bilateral: Clear to Auscultation Cardio Rate: regular rate Rhythm: regular rhythm Heart sounds: S1 normal and S2 normal Neuro General: patient alert, patient awake and patient oriented x3 Extremities Lower Extremity Edema: None: Bilateral Supplemental Info Supplemental Information Labs: LDL Cholesterol, (0-130) 67 mg/dL HDL Cholesterol, (40-) 101 mg/dL Cholesterol, (200) 184 mg/dL Triglycerides, (-199) 82 mg/dL Digoxin, (0.80-2.00) 1.78 ng/mL Diagnostics: Electrocardiogram Echocardiogram Cardiac Catheterization Chest X-Ray Past Visits: Cardiology Visit Today Assessment and Plan Assessment and Plan (1) Atrial fibrillation: Status: Chronic Plan: Metoprolol. Apixaban. (2) Nonischemic cardiomyopathy: Status: Chronic Plan: Repeat echocardiogram. Metoprolol, ACEI and empagliflozin. Blood pressure borderline but patient completely asymptomatic. (3) Coronary artery disease: Status: Chronic Plan: Mild disease noted on coronary angiography. For risk factor modification. (4) Dyslipidemia: Status: Chronic Plan: On atorvastatin. Continue to manage as per PCP. Plan Details Follow Up: 6 Months Coding Level of Care Code Off vis,est,level 4 Diagnoses Atrial fibrillation I48.91 Nonischemic cardiomyopathy I42.8 Coronary artery disease I25.10 Dyslipidemia E78.5 Coding Level of Care Code Off vis,est,level 4 Diagnoses Atrial fibrillation I48.91 Nonischemic cardiomyopathy I42.8 Coronary artery disease I25.10 Dyslipidemia E78.5 Clinical Quality Measures Falls Risk Screening/Assistive Devices Have you fallen in the past year?: No Cardiac Ejection fraction %: 55 05/21/25 1334 <Electronically signed by Betsy Souza MD> Date _ Betsy Souza MD Cosigner Signature: Date (if applicable) CC: Dr. Aureliano Ureña, DO ~ [facility] Work Phone: Reason for referral (narrative)No reason for referral information available[facility] Work Phone: Summary Purpose Family History No Family History Records Found Relationship Condition Age at Onset Recorded Date/T macho grandmother Myocardial infarction Unknown father Cerebrovascular accident (CVA) Unknown mother Cardiac disease Unknown Advance Directives No Advanced Directives Records Found Advance Directive Response Recorded Date/ Time Living Will No October 05 023 11:28pm Power of Learning Manager No October 05, 2022 11:28pm Chief Complaint and Reason for Visit Chief Complaint AFIB RVR AFIB W/ RVR AFIB W/ RVR AFIB W/ RVR AFIB W/ RVR AFIB W/ RVR AFIB W/ RVR AFIB W/ RVR AFIB W/ RVR AFIB W/ RVR AFIB W/ RVR AFIB W/ RVR AFIB W/ RVR AFIB W/ RVR PT LINK PROGRAM S/P PCU, AFIB RVR E ORDERS Reason for Visit Atrial fibrillation with RVR Nonischemic cardiomyopathy Hyperglycemia Hypokalemia Hypoxia Pleural effusion Nausea Atrial fibrillation Coronary artery disease Dyslipidemia Nonischemic cardiomyopathy Chief Complaint AFIB RVR AFIB W/ RVR AFIB W/ RVR AFIB W/ RVR AFIB W/ RVR AFIB W/ RVR AFIB W/ RVR AFIB W/ RVR AFIB W/ RVR AFIB W/ RVR AFIB W/ RVR AFIB W/ RVR AFIB W/ RVR AFIB W/ RVR PT LINK PROGRAM S/P PCU, AFIB RVR E ORDERS Hospital FU Amb Documentation 2 MO F/U LEFT VOCAL CORD PARA Reason for Visit Atrial fibrillation with RVR Hyperglycemia Hypokalemia Hypoxia Pleural effusion Nausea Nonischemic cardiomyopathy Atrial fibrillation Coronary artery disease Dyslipidemia Hoarseness Pleural effusion Nonischemic cardiomyopathy Atrial fibrillation Coronary artery disease Dyslipidemia Chief Complaint Admit Date 6 M FU May 21, 2025 1: 13pm Reason for Visit Admit Date Atrial fibrillation May 21, 2025 1: 13pm Coronary artery disease May 21 1:13pm Dyslipidemia May 21, 2025 1: 13pm Nonischemic cardiomyopathy May 21, 2025 1:13pm Additional Source Comments INFORMATION SOURCE (unrecogn ized section and content) DATE CREATED AUTHOR [facility]06/[facility] DATE CREATED AUTHOR AUTHOR'S ORGANIZ ATION 12/20/2023 [facility] ([place]) DATE CREATED AUTHOR AUTHOR'S ORGANIZ ATION 05/26/2025 [facility] Care Teams (unrecognized sec tion and content) Team Status: Active Member Role Status Dates Aureliano BUTLER MD Primary Care Provider Active Team Status: Active Member Role Status Dates Aureliano BUTLER MD Primary Care Provider Active Dr. Lucas Tolbert MD Emergency Provider Active Dr. Chuyita Guaman MD Attending Provider Active Team Status: Active Member Role Status Senia BUTLER MD Primary Care Provider Active Dr. Lucas Tolbert MD Emergency Provider Active Dr. Chuyita Guaman MD Admit Provider, Other Provider A ctive Dr. Lamonte Roman MD Attending Provider Active Team Status: Active Member Role Status Senia BUTLER MD Primary Care Provider Active Dr. Lucas Tolbert MD Emergency Provider Active Dr. Chuyita Guaman MD Admit Provider, Other Provider A ctive Dr. Lamonte Roman MD Other Provider Active Dr. Betsy Souza MD Attending Provider, Other Provid er Active Team Status: Active Member Role Status Senia BUTLER MD Primary Care Provider Active Dr. Lucas Tolbert MD Emergency Provider Active Dr. Chuyita Guaman MD Admit Provider, Other Provider A ctive Dr. Lamonte Roman MD Attending Provider, Other Provi bernard Active Dr. Betsy Souza MD Other Provider Active Dr. Arie Stratton MD Other Provider Active Dr. Gregory Lewis MD Other Provider Active Dr. Johnny Aburto , Other Provider Active Caron Fink LINOLEUM MECHANIC, LINOLEUM MECHANIC-C Other Provider Active Dr. Kali Mustafa MD Other Provider Active Team Status: Active Member Role Status Senia BUTLER MD Primary Care Provider Active Dr. Lucas Tolbert MD Emergency Provider Active Dr. Chuyita Guaman MD Admit Provider, Other Provider A ctive Dr. Lamonte Roman MD Other Provider Active Dr. Betsy Souza MD Attending Provider, Other Provid er Active Dr. Arie Stratton MD Other Provider Active Dr. Johnny Aburto , Other Provider Active Dr. Gregory Lewis MD Other Provider Active Dr. Kali Mustafa MD Other Provider Active Caron Fink LINOLEUM MECHANIC, LINOLEUM MECHANIC-C Other Provider Active Team Status: Active Member Role Status Senia BUTLER MD Primary Care Provider Active Dr. Lucas Tolbert MD Emergency Provider Active Dr. Chuyita Guaman MD Admit Provider, Other Provider A ctive Dr. Lamonte Roman MD Other Provider Active Dr. Betsy Souza MD Other Provider Active Dr. Arie Stratton MD Attending Provider, Other Provid er Active Dr. Johnny Aburto , DO Other Provider Active Dr. Gregory Lewis MD Other Provider Active Dr. Kali Mustafa MD Other Provider Active Caron Fink LINOLEUM MECHANIC, LINOLEUM MECHANIC-C Other Provider Active Dr. Penelope Jenkins , DO Referring Provider Active Team Status: Active Member Role Status Senia BUTLER MD Primary Care Provider Active Dr. Lucas Tolbert MD Emergency Provider Active Dr. Chuyita Guaman MD Admit Provider, Other Provider A ctive Dr. Betsy Souza MD Attending Provider, Other Provid er Active Dr. Arie Stratton MD Other Provider Active Dr. Johnny Aburto , DO Other Provider Active Dr. Gregory Lewis MD Other Provider Active Dr. Kali Mustafa MD Other Provider Active Caron Fink LINOLEUM MECHANIC, LINOLEUM MECHANIC-C Other Provider Active Dr. Penelope Jenkins , DO Other Provider Active Dr. Lamonte Roman MD Other Provider Active Team Status: Active Member Role Status Senia BUTLER MD Primary Care Provider Active Dr. Lucas Tolbert MD Emergency Provider Active Dr. Chuyita Guaman MD Admit Provider, Other Provider A ctive Dr. Betsy Souza MD Other Provider Active Dr. Arie Stratton MD Attending Provider, Other Provid er Active Dr. Johnny Aburto , DO Other Provider Active Dr. Gregory Lewis MD Other Provider Active Dr. Kali Mustafa MD Other Provider Active Caron Fink LINOLEUM MECHANIC, LINOLEUM MECHANIC-C Other Provider Active Dr. Penelope Jenkins , DO Other Provider Active Dr. Lamonte Roman MD Other Provider Active Team Status: Active Member Role Status Senia BUTLER MD Primary Care Provider Active Dr. Lucas Tolbert MD Emergency Provider Active Dr. Chuyita Guaman MD Admit Provider, Other Provider A ctive Dr. Betsy Souza MD Other Provider Active Dr. Arie Stratton MD Other Provider Active Dr. Johnny Aburto , DO Other Provider Active Dr. Gregory Lewis MD Other Provider Active Dr. Kali Mustafa MD Other Provider Active Caron Fink LINOLEUM MECHANIC, LINOLEUM MECHANIC-C Other Provider Active Dr. Penelope Jenkins , Attending Provider, Other Provide r Active Dr. Lamonte Roman MD Other Provider Active Team Status: Active Member Role Status Senia BUTLER MD Primary Care Provider Active Dr. Lucas Tolbert MD Emergency Provider Active Dr. Chuyita Guaman MD Admit Provider, Other Provider A ctive Dr. Betsy Souza MD Other Provider Active Dr. Arie Stratton MD Other Provider Active Dr. Johnny Aburto DO Attending Provider, Other Provide r Active Dr. Gregory Lewis MD Other Provider Active Dr. Kali Mustafa MD Other Provider Active Caron Fink LINOLEUM MECHANIC, LINOLEUM MECHANIC-C Other Provider Active Dr. Penelope Jenkins DO Other Provider Active Dr. Lamonte Roman MD Other Provider Active Team Status: Inactive Member Role Status Senia BUTLER MD Primary Care Provider, Referring Provider Active Dr. Betsy Souza MD Attending Provider Active Team Status: Inactive Member Role Status Senia BUTLER MD Primary Care Provider Active Dr. Lucas Tolbert MD Emergency Provider Active Dr. Chuyita Guaman MD Admit Provider, Other Provider A ctive Dr. Betsy Souza MD Other Provider Active Dr. Arie Stratton MD Other Provider Active Dr. Johnny Aburto DO Other Provider Active Dr. Gregory Lewis MD Other Provider Active Dr. Kali Mustafa MD Other Provider Active Caron Fink NP, LINOLEUM MECHANIC-C Other Provider Active Dr. Penelope Jenkins DO Attending Provider Active Dr. Lamonte Roman MD Other Provider Active Team Status: Active Member Role Status Senia BUTLER MD Primary Care Provider Active Patient Link Program Attending Provider Active Team Status: Inactive Member Role Status Senia BUTLER MD Primary Care Provider Active Dr. Betsy Souza MD Attending Provider, Referring Pr ovider Active Team Status: Active Member Role Status Senia Ureña DO Primary Care Provider Active Team Status: Active Member Role Status Senia BUTLER MD Primary Care Provider Active Dr. Lucas Tolbert MD Emergency Provider Active Dr. Chuyita Guaman MD Admit Provider, Other Provider A ctive Dr. Betsy Souza MD Other Provider Active Dr. Arie Stratton MD Attending Provider, Other Provid er Active Dr. Johnny Aburto DO Other Provider Active Dr. Gregory Lewis MD Other Provider Active Dr. Kali Mustafa MD Other Provider Active Caron Fink LINOLEUM MECHANIC, LINOLEUM MECHANIC-C Other Provider Active Dr. Penelope Jenkins DO Referring Provider, Other Provide r Active Dr. Lamonte Roman MD Other Provider Active Team Status: Active Member Role Status Dates Aureliano BUTLER MD Primary Care Provider Active Dr. Lucas Tolbert MD Emergency Provider Active Dr. Chuyita Guaman MD Admit Provider, Other Provider A ctive Dr. Betsy Souza MD Other Provider Active Dr. Arie Stratton MD Other Provider Active Dr. Johnny Aburto DO Attending Provider, Other Provide r Active Dr. Gregory Lewis MD Other Provider Active Dr. Kali Mustafa MD Other Provider Active Caron Fink LINOLEUM MECHANIC, LINOLEUM MECHANIC-C Other Provider Active Dr. Penelope Jenkins DO Referring Provider, Other Provide r Active Dr. Lamonte Roman MD Other Provider Active Team Status: Inactive Member Role Status Dates Aureliano BUTLER MD Primary Care Provider, Referring Provider Active Caron Fink LINOLEUM MECHANIC, LINOLEUM MECHANIC-C Attending Provider Active Team Status: Inactive Member Role Status Dates Aureliano BUTLER MD Referring Provider Active Dr. Betsy Souza MD Attending Provider Active Dr. Aureliano Ureña DO Primary Care Provider Active Team Status: Active Member Role Status Dates Aureliano BUTLER MD Primary Care Provider Active Josefa Ball Attending Provider Active Team Status: Inactive Member Role Status Dates Dr. Jayant Zavala MD Attending Provider, Referring Pr ovider Active Dr. Aureliano Ureña DO Primary Care Provider Active Dr. Betsy Souza MD Other Provider Active Team Status: Active Member Role/Relationship Status Dates Dr. Aureliano Ureña DO Primary care physician Active Team Status: Inactive Member Role/Relationship Status Dates Dr. Aureliano Ureña DO Primary care physician Active Start: May 21, 2025 End: May 21, 2025 Dr. Aureliano Ureña DO Referring Provider Active Start: May 21, 2025 End: May 21, 2025 Dr. Betsy Souza MD Attending physician Active Start: May 21, 2025 End: May 21, 2025 Goals (unrecognized section and content) Goals may be documented in a n alternate section FOR RECORDS PERTAINING TO PATIENTS WHO ARE OR HAVE BEEN ENROLLED IN A CHEMICAL DEPENDENCY/SUBSTANCEABUSE PROGRAM, SOME INFORMATION MAY BE OMITTED. This clinical summary was aggregated from multiple sources. Caution should be exercised in using it in the provision of clinical care. This summary normalizes information from multiple sources, and as a consequence, information in this document may materially change the coding, format and clinical context of patient data. In addition, data may be omitted in some cases. CLINICAL DECISIONS SHOULD BE BASED ON THE PRIMARY CLINICAL RECORDS. [facility] provides no warranty or guarantee of the accuracy or completeness of information in this document.
== END | disposition home or self-care (01) ==
LOC: CVS 09:45
PROVIDERS: PCP Family Medicine; Referring Provider Internal Medicine Cardiovascular Disease; Visit Provider Internal Medicine Cardiovascular Disease
DX: I42.8 Other cardiomyopathies (principal); I48.91 Unspecified atrial fibrillation; I25.10 Atherosclerotic heart disease of native coronary artery without angina pectoris; E78.5 Hyperlipidemia, unspecified
CPT/HCPCS: 93306